=== PATIENT | female | born 1940 | race Caucasian/White ===

== ENCOUNTER 2017-05-29 09:25 | Emergency (ER) | payer MEDICARE ==
[2017-05-29] MEDS ORDERED: Sodium Chloride 0.9% 500 ML 500 ML IV ONE (09:58)
--- NOTE | 2017-05-29 10:00 | ERPHSYRPT ---
- History of Present Illness Time Seen by Provider: 05/29/17 09:59 Source: patient Exam Limitations: no limitations Patient Subjective Stated Complaint: pt states she has had the feeling of Urinary tract infections for the past few days. states she gets frequent urinary tract infections. today pt called [facility] because she felt as though she was going to have a syncopal episode. pt deniesa ny chest pain. Triage Nursing Assessment: pt pink, warm, dry. mouth dry. pt alert and oriented x3. Physician History: 76 y/o female brought in by ambulance for urinary retention since last night. Pt reports that she urinated last night but this morning was not able to void. Pt does say that she has been having dysuria for the past 2 days. Pt has a history of UTIs in the past. Pt also mentions that she felt as if she was going to pass out this morning feeling dizziness with nausea. Pt was seen at Dr Swift' s office yesterday and had a similar episode of dizziness. Pt denies any chest pain, abdominal pain, nausea, vomiting, fever or chills. Of note, patient was just started on steroids and cymbalta for the past week. Timing/Duration: today Activites at Onset: none Allergies/Adverse Reactions: No Known Drug Allergies Allergy (Verified 05/29/17 09:35) Home Medications: Dicyclomine HCl [Bentyl] 10 mg PO BID 01/26/13 [History] Calcium Carbonate [Caltrate 600] 600 mg PO DAILY 10/06/14 [History] Cholecalciferol (Vitamin D3) [Vitamin D3] 400 unit PO DAILY 05/06/16 [History] Cranberry 500 mg PO DAILY 05/06/16 [History] Ferrous Sulfate [Iron] 325 mg PO BID 05/06/16 [History] Gabapentin [Neurontin] 200 mg PO DAILY 05/06/16 [History] Golimumab [Simponi] 22.5 mg IV UD 05/06/16 [History] Levothyroxine Sodium [Synthroid] 150 mcg PO DAILY 05/06/16 [History] Rivaroxaban [Xarelto] 20 mg PO HS 05/06/16 [History] Amlodipine Besylate 5 mg PO DAILY 05/29/17 [History] Duloxetine HCl 30 mg [Cymbalta 30 MG Capsule] 30 mg PO DAILY 05/29/17 [ History] Gabapentin 300 mg PO HS 05/29/17 [History] Lisinopril 10 mg [Zestril 10 MG] 10 mg PO BID 05/29/17 [History] Metoprolol Succinate 100 mg [Toprol Xl 100 MG] 100 mg PO DAILY 05/29/17 [ History] Hx Tetanus, Diphtheria Vaccination/Date Given: Yes (unknown) Hx Influenza Vaccination/Date Given: Yes Hx Pneumococcal Vaccination/Date Given: No - Review of Systems Constitutional: No Fever, No Chills Eyes: No Symptoms Ears, Nose, & Throat: No Symptoms Respiratory: No Cough, No Dyspnea Cardiac: No Chest Pain, No Edema, No Syncope Abdominal/Gastrointestinal: No Abdominal Pain, No Nausea, No Vomiting, No Diarrhea Genitourinary Symptoms: Dysuria, Urinary Retention Musculoskeletal: No Back Pain, No Neck Pain Skin: No Rash Neurological: No Dizziness, No Focal Weakness, No Sensory Changes Psychological: No Symptoms Endocrine: No Symptoms All Other Systems: Reviewed and Negative - Past Medical History Pertinent Past Medical History: Yes Neurological History: No Pertinent History ENT History: Cataracts Cardiac History: Arrhythmia, Hypertension Respiratory History: No Pertinent History Endocrine Medical History: Hypothyroidism Musculoskeletal History: Fibromyalgia, Rheumatoid Arthritis GI Medical History: Diverticulosis, GERD, Other History: No Pertinent History Psycho-Social History: Anxiety Female Reproductive Disorders: No Pertinent History Other Medical History: UTI, A FIB, hiatal hernia, - Past Surgical History Past Surgical History: Yes Neuro Surgical History: No Pertinent History Cardiac: Pacemaker Respiratory: No Pertinent History Gastrointestinal: No Pertinent History Genitourinary: No Pertinent History Musculoskeletal: Other Female Surgical History: Tubal Ligation Other Surgical History: KNEE REPLACEMENT X 2,. RIGHT HIP. Cataract surgery - Social History Smoking Status: Never smoker Exposure to second hand smoke: No Alcohol Use: None Drug Use: none Patient Lives Alone: No Significant Family History: hypertension - Female History Hx Now: No - Nursing Vital Signs Nursing Vital Signs: Initial Vital Signs Temperature 98.0 F 05/29/17 09:26 Pulse Rate 82 05/29/17 09:26 Respiratory Rate 18 05/29/17 09:26 Blood Pressure 142/90 05/29/17 09:26 O2 Sat by Pulse Oximetry 96 05/29/17 09:26 Pain Scale Pain Intensity 0 - Physical Exam General Appearance: no apparent distress, alert Eye Exam: PERRL/EOMI, eyes nml inspection Ears, Nose, Throat Exam: normal ENT inspection, TMs normal, pharynx normal, moist mucous membranes Neck Exam: normal inspection, non-tender, supple, full range of motion Respiratory Exam: normal breath sounds, lungs clear, No respiratory distress Cardiovascular Exam: regular rate/rhythm, normal heart sounds, normal peripheral pulses Gastrointestinal/Abdomen Exam: soft, normal bowel sounds, No tenderness, No distention, No mass Back Exam: normal inspection, normal range of motion, No CVA tenderness, No vertebral tenderness Extremity Exam: normal inspection, normal range of motion, pelvis stable Neurologic Exam: alert, oriented x 3, cooperative, orthotist or prosthetist II-XII nml as tested, normal mood/affect, sensation nml, No motor deficits Skin Exam: normal color, warm, dry Lymphatic Exam: No adenopathy SpO2: 96 Oxygen Delivery: Room Air - Course Nursing assessment & vital signs reviewed: Yes EKG Interpreted by Me: Other (T wave inversions in V3, V4, V5 and V6 (new)) Ordered Tests: Active Orders 24 hr Category Date Time Status Catheter-[place] Yip STAT Care 05/29/17 09:56 Active EKG-ER Only STAT Care 05/29/17 09:59 Active CHEST 1 VIEW (PORTABLE) Stat Exams 05/29/17 10:40 Completed CBC W DIFF Stat Lab 05/29/17 09:45 Completed CMP Stat Lab 05/29/17 09:45 Completed CULTURE,URINE Stat Lab 05/29/17 09:45 Received TROPONIN Q3H Lab 05/29/17 09:45 Completed TROPONIN Q3H Lab 05/29/17 13:00 Ordered TROPONIN Q3H Lab 05/29/17 16:00 Ordered TROPONIN Q3H Lab 05/29/17 19:00 Ordered TROPONIN Q3H Lab 05/29/17 22:00 Ordered UA W/ MICROSCOPIC Stat Lab 05/29/17 09:45 Completed Medication Summary Generic Name Dose Route Start Last Admin Trade Name Freq PRN Reason Stop Dose Admin Sodium Chloride 1,000 mls @ 50 mls/hr 05/29/17 10:30 05/29/17 10:18 Sodium Chloride 0.9% 1000 Ml IV 06/28/17 10:29 50 mls/hr .Q20H TAHIR Administration Discontinued Medications Generic Name Dose Route Start Last Admin Trade Name Freq PRN Reason Stop Dose Admin Sodium Chloride 500 mls @ 500 mls/hr 05/29/17 09:58 05/29/17 10:18 Sodium Chloride 0.9% 500 Ml IV 05/29/17 10:57 Not Given .Q1H ONE Lab/Rad Data: Laboratory Result Diagrams 05/29/17 09:45 05/29/17 09:45 Laboratory Results 05/29/17 05/29/17 05/29/17 Range/Units 09:45 09:45 09:45 WBC (4.0-10.5) K/mm3 RBC (4.1-5.4) M/mm3 Hgb (12.0-16.0) gm/dl Hct (35-47) % MCV (78-100) fl MCH (26-32) pg MCHC (32-36) g/dl RDW (11.5-14.0) % Plt Count (150-450) K/mm3 MPV (6-9.5) fl Gran % (36.0-66.0) % Lymphocytes % (24.0-44.0) % Monocytes % (0.0-12.0) % Eosinophils % (0.00-5.0) % Basophils % (0.0-0.4) % Basophils # (0-0.4) Sodium 126 L (136-145) mEq/L Potassium 4.2 (3.5-5.1) mEq/L Chloride 92 L (98-107) mEq/L Carbon Dioxide 24.6 (21-32) mEq/L Anion Gap 13.7 (5-15) MEQ/L BUN 21 H (9-20) mg/dL Creatinine 1.15 (0.55-1.30) mg/dl Estimated GFR 49 ML/MIN Glucose 114 H (70-110) MG/DL Calcium 9.6 (8.5-10.1) mg/dL Total Bilirubin 1.60 H (0.2-1.0) mg/dL AST 25 (15-37) U/L ALT 32 (12-78) U/L Alkaline Phosphatase 115 (46-116) U/L Troponin I < 0.017 (0.000-0.056) ng/ml Serum Total Protein 8.0 (6.4-8.2) gm/dL Albumin 4.1 (3.4-5.0) g/dL Ur Collection Type CATH Urine Color ORANGE (YELLOW) Urine Appearance CLOUDY (CLEAR) Urine pH COLOR INTERFERENCE (5-6) Ur Specific [place] COLOR INTERFERENCE (1.005-1.025) Urine Protein COLOR INTERFERENCE (Negative) Urine Ketones COLOR INTERFERENCE (NEGATIVE) Urine Blood COLOR INTERFERENCE (0-5) Margarito/ul Urine Nitrite COLOR INTERFERENCE (NEGATIVE) Urine Bilirubin COLOR INTERFERENCE (NEGATIVE) Urine Urobilinogen COLOR INTERFERENCE (0-1) mg/dL Ur Leukocyte Esterase COLOR INTERFERENCE (NEGATIVE) Urine Microscopic WBC 25-50 (0-5) /HPF Ur Epithelial Cells FEW (FEW) /HPF Urine Bacteria FEW (NEGATIVE) /HPF Urine Glucose COLOR INTERFERENCE (NEGATIVE) mg/dL Specimen Received 05-29 1010 05/29/17 Range/Units 09:45 WBC 10.7 H (4.0-10.5) K/mm3 RBC 5.56 H (4.1-5.4) M/mm3 Hgb 16.8 H (12.0-16.0) gm/dl Hct 48.8 H (35-47) % MCV 87.8 (78-100) fl MCH 30.2 (26-32) pg MCHC 34.4 (32-36) g/dl RDW 12.3 (11.5-14.0) % Plt Count 219 (150-450) K/mm3 MPV 9.9 H (6-9.5) fl Gran % 70.5 H (36.0-66.0) % Lymphocytes % 19.4 L (24.0-44.0) % Monocytes % 9.7 (0.0-12.0) % Eosinophils % 0.3 (0.00-5.0) % Basophils % 0.1 (0.0-0.4) % Basophils # 0.01 (0-0.4) Sodium (136-145) mEq/L Potassium (3.5-5.1) mEq/L Chloride (98-107) mEq/L Carbon Dioxide (21-32) mEq/L Anion Gap (5-15) MEQ/L BUN (9-20) mg/dL Creatinine (0.55-1.30) mg/dl Estimated GFR ML/MIN Glucose (70-110) MG/DL Calcium (8.5-10.1) mg/dL Total Bilirubin (0.2-1.0) mg/dL AST (15-37) U/L ALT (12-78) U/L Alkaline Phosphatase (46-116) U/L Troponin I (0.000-0.056) ng/ml Serum Total Protein (6.4-8.2) gm/dL Albumin (3.4-5.0) g/dL Ur Collection Type Urine Color (YELLOW) Urine Appearance (CLEAR) Urine pH (5-6) Ur Specific [place] (1.005-1.025) Urine Protein (Negative) Urine Ketones (NEGATIVE) Urine Blood (0-5) Margarito/ul Urine Nitrite (NEGATIVE) Urine Bilirubin (NEGATIVE) Urine Urobilinogen (0-1) mg/dL Ur Leukocyte Esterase (NEGATIVE) Urine Microscopic WBC (0-5) /HPF Ur Epithelial Cells (FEW) /HPF Urine Bacteria (NEGATIVE) /HPF Urine Glucose (NEGATIVE) mg/dL Specimen Received - Progress Progress: improved Progress Note: 05/29/17 11:49 The EKG from today shows T wave inversions in leads V3-V6 which is a change from previous EKG in 2015. The troponin is negative. CXR is unremarkable. Pt also has a Na of 126. 05/29/17 12:02 Awaiting U/A. Pt has been accepted by hospitalist, Dr Jacobs at [place] - Departure Time of Disposition: 12:03 Departure Disposition: Transfer Clinical Impression: Acute electrocardiogram changes, Hyponatremia Condition: Stable Critical Care Time: Yes Critical Care Time(excluding separately billable procedures): 75-104 minutes Referrals: KURTIS THIBODEAUX MD [Primary Care Provider] -
[2017-05-29 10:08] LABS: BASOPHIL % 0.1 % (0.0-0.4); Eosinophil % 0.3 % (0.00-5.0); Granulocytes % 70.5 % (36.0-66.0); Lymphocytes % 19.4 % (24.0-44.0); Mean Cell Volume 87.8 fl (78-100); Mean Corpuscular Hemoglobin 30.2 pg (26-32); Mean Platelet Volume 9.9 fl (6-9.5); Monocytes % 9.7 % (0.0-12.0); Platelet Count 219 K/mm3 (150-450); Red Blood Count 5.56 M/mm3 (4.1-5.4); Red Cell Distribution Width 12.3 % (11.5-14.0); White Blood Count 10.7 K/mm3 (4.0-10.5)
[2017-05-29 10:11] LABS: Bilirubin COLOR INTERFERENCE (NEGATIVE); COMPLETE URINE MICROSCOPIC? YES; Collection Type CATH; Glucose COLOR INTERFERENCE mg/dL (NEGATIVE); Leukocyte Esterase COLOR INTERFERENCE (NEGATIVE)
[2017-05-29 10:12] LABS: Epithelial Cells FEW /HPF (FEW); WBC 25-50 /HPF (0-5)
[2017-05-29 10:14] LABS: Bacteria FEW /HPF (NEGATIVE)
[2017-05-29 10:15] LABS: ADD URINE CULTURE? YES (NO)
[2017-05-29] MEDS ORDERED: Sodium Chloride 0.9% 1000 ML 1,000 ML IV SCH (10:30)
[2017-05-29 10:42] LABS: ALBUMIN 4.1 g/dL (3.4-5.0); ANION GAP 13.7 MEQ/L (5-15); BILIRUBIN,TOTAL 1.6 mg/dL (0.2-1.0); Carbon Dioxide 24.6 mEq/L (21-32); Potassium 4.2 mEq/L (3.5-5.1)
--- NOTE | 2017-05-29 11:16 | XRAY ---
Indication: Chest pain. Comparison: December 19, 2014. Portable chest unchanged again demonstrating clear lungs without cardiomegaly. Stable left-sided pacemaker, focal eventration of the right hemidiaphragm, hiatal hernia, osteopenia, degenerative changes, and old right humeral head fracture. Impression: Stable nonacute chest with chronic features.
[2017-05-29 12:05] LABS: Blood COLOR INTERFERENCE Ery/ul (0-5)
[2017-05-29 12:39] VITALS: BP 154/74; PULSE 77; O2SAT 98
== END 2017-05-29 12:56 | disposition short-term general hospital (02) ==
LOC: ED 09:25
DX: R94.31 Abnormal electrocardiogram [ECG] [EKG] (principal); E87.1 Hypo-osmolality and hyponatremia; Z79.899 Other long term (current) drug therapy
CPT/HCPCS: 36000; 36415; 51702; 71010; 80053; 81000; 84484; 85025; 87077; 87086; 87186; 93005; 96360; 96361; 99285

== ENCOUNTER 2019-05-20 00:38 | Observation (INO) | payer MEDICARE ==
[2019-05-20] MEDS ORDERED: Zofran 4 MG/2 ML VIAL IV ONE (00:53)
[2019-05-20] MEDS ORDERED: Sodium Chloride 0.9% 1000 ML 1,000 ML IV STA ×2 (00:53→04:36)
--- NOTE | 2019-05-20 00:59 | ERPHSYRPT ---
- History of Present Illness Time Seen by Provider: 05/20/19 00:53 Historian: patient Exam Limitations: no limitations Physician History: Pt started c/o nausea, diarrhea last night, she had several episodes of watery stools, denies vomiting, bloody or black stools, no fever, chills, no urinary complaints, chest pain, SOB, or distress. She denies taking antibiotics recently. Timing/Duration: yesterday Activities at Onset: none Quality: other (denies) Pain Radiation: no radiation Severity of Pain-Max: none Severity of Pain-Current: none Modifying Factors: Improves With: nothing Associated Symptoms: diarrhea, nausea Previous symptoms: no prior history Allergies/Adverse Reactions: No Known Drug Allergies Allergy (Verified 05/29/17 09:35) Home Medications: Dicyclomine HCl [Bentyl] 10 mg PO BID 01/26/13 [History] Gabapentin [Neurontin] 200 mg PO DAILY 05/06/16 [History] Golimumab [Simponi] 22.5 mg IV UD 05/06/16 [History] Levothyroxine Sodium [Synthroid] 100 mcg PO DAILY 05/06/16 [History] Duloxetine HCl 30 mg [Cymbalta 30 MG Capsule] 20 mg PO DAILY 05/29/17 [ History] Gabapentin 300 mg PO HS 05/29/17 [History] Apixaban [Eliquis] 2.5 mg PO BID 05/20/19 [History] Carvedilol 25 mg PO BID 05/20/19 [History] Denosumab 60 mg [Prolia 60 mg Injection] 60 mg IM CLARIFY 05/20/19 [ History] Magnesium 400 mg PO DAILY 05/20/19 [History] Verapamil HCl [Verapamil ER Pm] 200 mg PO DAILY 05/20/19 [History] Hx Tetanus, Diphtheria Vaccination/Date Given: Yes (unknown) Hx Influenza Vaccination/Date Given: Yes Hx Pneumococcal Vaccination/Date Given: No - Review of Systems Constitutional: No Symptoms Ears, Nose, & Throat: No Symptoms Respiratory: No Symptoms Cardiac: No Symptoms Abdominal/Gastrointestinal: Nausea, Diarrhea, No Abdominal Pain Genitourinary Symptoms: No Symptoms Musculoskeletal: No Symptoms Skin: No Symptoms Neurological: No Symptoms All Other Systems: Reviewed and Negative - Past Medical History Pertinent Past Medical History: Yes Neurological History: No Pertinent History ENT History: Cataracts Cardiac History: Arrhythmia, Hypertension Respiratory History: No Pertinent History Endocrine Medical History: Hypothyroidism Musculoskeletal History: Fibromyalgia, Rheumatoid Arthritis GI Medical History: Diverticulosis, GERD, Other History: No Pertinent History Psycho-Social History: Anxiety Female Reproductive Disorders: No Pertinent History Other Medical History: UTI, A FIB, hiatal hernia, - Past Surgical History Past Surgical History: Yes Neuro Surgical History: No Pertinent History Cardiac: Pacemaker Respiratory: No Pertinent History Gastrointestinal: No Pertinent History Genitourinary: No Pertinent History Musculoskeletal: Other Female Surgical History: Tubal Ligation Other Surgical History: KNEE REPLACEMENT X 2,. RIGHT HIP. Cataract surgery - Social History Smoking Status: Never smoker Exposure to second hand smoke: No Alcohol Use: None Drug Use: none Patient Lives Alone: No Significant Family History: hypertension - Nursing Vital Signs Nursing Vital Signs: Initial Vital Signs Temperature 98.1 F 05/20/19 00:39 Pulse Rate 63 05/20/19 00:39 Respiratory Rate 20 05/20/19 00:39 Blood Pressure 90/55 05/20/19 00:39 O2 Sat by Pulse Oximetry 92 L 05/20/19 00:39 Pain Scale Pain Intensity 0 - Physical Exam General Appearance: no apparent distress Eye Exam: eyes nml inspection Ears, Nose, Throat Exam: pharynx normal, dry mucous membranes Neck Exam: normal inspection, non-tender, supple, No JVD, No lymphadenopathy Respiratory Exam: normal breath sounds, lungs clear, airway intact Cardiovascular Exam: regular rate/rhythm, normal heart sounds, normal peripheral pulses, No murmur, No edema Gastrointestinal/Abdomen Exam: soft, normal bowel sounds, No tenderness, No distention, No mass, No guarding, No ecchymosis, No rebound, No organomegaly Extremity Exam: normal inspection, No calf tenderness, No sara's sign, No pedal edema Neurologic Exam: alert, oriented x 3, cooperative, normal mood/affect Skin Exam: normal color, warm, dry, No rash, No petechiae, No cyanosis, No diaphoresis Lymphatic Exam: No adenopathy SpO2 Interpretation: borderline oxygenation SpO2: 92 O2 Delivery: Room Air - Course Nursing assessment & vital signs reviewed: Yes - CT Exams Abdomen/Pelvis CT Interpretation: Tele-radiologist Report, Other (Cholelithiasis, normal gallbladder wall, no pericholecystic fluid, no acute changes.) Ordered Tests: Active Orders 24 hr Category Date Time Status ABDOMEN AND PELVIS W/0 CONTRAS [CT] Stat Exams 05/20/19 02:45 Taken AMYLASE Stat Lab 05/20/19 01:10 Completed CBC W DIFF Stat Lab 05/20/19 01:10 Completed CMP Stat Lab 05/20/19 01:10 Completed CULTURE,URINE Stat Lab 05/20/19 03:11 Received LIPASE Stat Lab 05/20/19 01:10 Completed Lactic Acid Stat Lab 05/20/19 01:04 Completed Occult Blood, Other Screening Stat Lab 05/20/19 00:54 Completed UA W/RFX UR CULTURE Stat Lab 05/20/19 03:11 Completed Medication Summary Generic Name Dose Route Start Last Admin Trade Name Freq PRN Reason Stop Dose Admin Sodium Chloride 1,000 mls @ 999 mls/hr 05/20/19 04:36 05/20/19 04:38 Sodium Chloride 0.9% 1000 Ml IV 05/20/19 05:36 999 mls/hr .Q1H1M STA Administration Levofloxacin/Dextrose 750 mg in 150 mls @ 100 mls/hr 05/20/19 04:38 Levofloxacin 750mg/150ml D5w IV 05/20/19 06:07 STAT STA Discontinued Medications Generic Name Dose Route Start Last Admin Trade Name Freq PRN Reason Stop Dose Admin Sodium Chloride 1,000 mls @ 999 mls/hr 05/20/19 00:53 05/20/19 01:32 Sodium Chloride 0.9% 1000 Ml IV 05/20/19 01:53 999 mls/hr .Q1H1M STA Administration Sodium Chloride Confirm 05/20/19 01:29 Sodium Chloride 0.9% 1000 Ml Administered 05/20/19 01:30 Dose 1,000 mls @ ud .ROUTE .STK-MED ONE Sodium Chloride Confirm 05/20/19 04:36 Sodium Chloride 0.9% 1000 Ml Administered 05/20/19 04:37 Dose 1,000 mls @ ud .ROUTE .STK-MED ONE Ondansetron HCl 4 mg 05/20/19 00:53 05/20/19 01:32 Zofran 4 Mg/2 Ml Vial IV 05/20/19 00:54 4 mg STAT ONE Administration Ondansetron HCl Confirm 05/20/19 01:29 Zofran 4 Mg/2 Ml Vial Administered 05/20/19 01:30 Dose 4 mg .ROUTE .STK-MED ONE Lab/Rad Data: Laboratory Result Diagrams 05/20/19 01:10 05/20/19 01:10 Laboratory Results 05/20/19 05/20/19 05/20/19 Range/Units 03:11 01:10 01:10 WBC 9.6 (4.0-10.5) K/mm3 RBC 4.03 L (4.1-5.4) M/mm3 Hgb 11.9 L (12.0-16.0) gm/dl Hct 38.4 (35-47) % MCV 95.3 (78-100) fl MCH 29.5 (26-32) pg MCHC 31.0 L (32-36) g/dl RDW 13.2 (11.5-14.0) % Plt Count 172 (150-450) K/mm3 MPV 9.4 (6-9.5) fl Gran % 78.9 H (36.0-66.0) % Eos # (Auto) 0.03 (0-0.5) Absolute Lymphs (auto) 1.04 (1.0-4.6) Absolute Monos (auto) 0.96 (0.0-1.3) Lymphocytes % 10.8 L (24.0-44.0) % Monocytes % 10.0 (0.0-12.0) % Eosinophils % 0.3 (0.00-5.0) % Basophils % 0.0 (0.0-0.4) % Absolute Granulocytes 7.58 H (1.4-6.9) Basophils # 0 (0-0.4) Sodium 133 L (137-145) mmol/L Potassium 4.4 (3.5-5.1) mmol/L Chloride 101 (98-107) mmol/L Carbon Dioxide 21 L (22-30) mmol/L Anion Gap 14.8 (5-15) MEQ/L BUN 28 H (7-17) mg/dL Creatinine 1.30 H (0.52-1.04) mg/dL Estimated GFR 42.2 ML/MIN Glucose 115 H (74-106) mg/dL Lactic Acid (0.4-2.0) Calcium 8.9 (8.4-10.2) mg/dL Total Bilirubin 2.20 H (0.2-1.3) mg/dL AST 119 H (14-36) U/L ALT 48 H (0-35) U/L Alkaline Phosphatase 141 H (38-126) U/L Serum Total Protein 7.4 (6.3-8.2) g/dL Albumin 3.7 (3.5-5.0) g/dL Amylase 87 (30-110) U/L Lipase 140 (23-300) U/L Urine Color STACIE (YELLOW) Urine Appearance CLOUDY (CLEAR) Urine pH 5.0 (5-6) Ur Specific [place] 1.023 (1.005-1.025) Urine Protein 100 (Negative) Urine Ketones TRACE (NEGATIVE) Urine Blood NEGATIVE (0-5) Margarito/ul Urine Nitrite NEGATIVE (NEGATIVE) Urine Bilirubin MODERATE (NEGATIVE) Urine Urobilinogen 2 (0-1) mg/dL Ur Leukocyte Esterase MODERATE (NEGATIVE) Urine WBC (Auto) 51-100 (0-5) /HPF Urine RBC (Auto) 3-5 (0-2) /HPF U Hyaline Cast (Auto) 3-5 (0-2) /LPF U Epithel Cells (Auto) NONE (FEW) /HPF Urine Bacteria (Auto) RARE (NEGATIVE) /HPF Granular Casts (Auto) 10-25 (NEGATIVE) /LPF Urine Mucus (Auto) SLIGHT (NEGATIVE) /HPF Urine Culture Reflexed YES (NO) Urine Glucose NEGATIVE (NEGATIVE) mg/dL Stool Occult Blood (Negative) C. difficile Screen (NEGATIVE) C.difficile [id number] (NEGATIVE) 05/20/19 05/20/19 05/20/19 Range/Units 01:04 00:55 00:54 WBC (4.0-10.5) K/mm3 RBC (4.1-5.4) M/mm3 Hgb (12.0-16.0) gm/dl Hct (35-47) % MCV (78-100) fl MCH (26-32) pg MCHC (32-36) g/dl RDW (11.5-14.0) % Plt Count (150-450) K/mm3 MPV (6-9.5) fl Gran % (36.0-66.0) % Eos # (Auto) (0-0.5) Absolute Lymphs (auto) (1.0-4.6) Absolute Monos (auto) (0.0-1.3) Lymphocytes % (24.0-44.0) % Monocytes % (0.0-12.0) % Eosinophils % (0.00-5.0) % Basophils % (0.0-0.4) % Absolute Granulocytes (1.4-6.9) Basophils # (0-0.4) Sodium (137-145) mmol/L Potassium (3.5-5.1) mmol/L Chloride (98-107) mmol/L Carbon Dioxide (22-30) mmol/L Anion Gap (5-15) MEQ/L BUN (7-17) mg/dL Creatinine (0.52-1.04) mg/dL Estimated GFR ML/MIN Glucose (74-106) mg/dL Lactic Acid 1.2 (0.4-2.0) Calcium (8.4-10.2) mg/dL Total Bilirubin (0.2-1.3) mg/dL AST (14-36) U/L ALT (0-35) U/L Alkaline Phosphatase (38-126) U/L Serum Total Protein (6.3-8.2) g/dL Albumin (3.5-5.0) g/dL Amylase (30-110) U/L Lipase (23-300) U/L Urine Color (YELLOW) Urine Appearance (CLEAR) Urine pH (5-6) Ur Specific [place] (1.005-1.025) Urine Protein (Negative) Urine Ketones (NEGATIVE) Urine Blood (0-5) Margarito/ul Urine Nitrite (NEGATIVE) Urine Bilirubin (NEGATIVE) Urine Urobilinogen (0-1) mg/dL Ur Leukocyte Esterase (NEGATIVE) Urine WBC (Auto) (0-5) /HPF Urine RBC (Auto) (0-2) /HPF U Hyaline Cast (Auto) (0-2) /LPF U Epithel Cells (Auto) (FEW) /HPF Urine Bacteria (Auto) (NEGATIVE) /HPF Granular Casts (Auto) (NEGATIVE) /LPF Urine Mucus (Auto) (NEGATIVE) /HPF Urine Culture Reflexed (NO) Urine Glucose (NEGATIVE) mg/dL Stool Occult Blood POSITIVE A (Negative) C. difficile Screen NEGATIVE (NEGATIVE) C.difficile [id number] PRESUMPTIVE NEGATIVE (NEGATIVE) - Progress Progress: improved Progress Note: 05/20/19 04:48 Pt has been afebrile, denies pain, nausea resolved, started on IV saline bolus, and Levaquin, reviewed her labs and called Dr Gutiérrez, discussed our results and her current condition, she agreed to admit her for observation. Patient was informed and agreed. Discussed with Dr.: Other (Dr Gutiérrez) Will see patient in: hospital (observation) Counseled pt/family regarding: lab results, diagnosis, rad results - Departure Departure Disposition: Observation Clinical Impression: UTI (lower urinary tract infection), Dehydration Diarrhea Qualifiers: Diarrhea type: unspecified type Qualified Code(s): R19.7 - Diarrhea, unspecified Gastrointestinal bleeding Qualifiers: GI bleed type/associated pathology: unspecified gastrointestinal hemorrhage type Qualified Code(s): K92.2 - Gastrointestinal hemorrhage, unspecified Cholelithiasis Qualifiers: Cholelithiasis location: gallbladder Cholecystitis presence: without cholecystitis Biliary obstruction: without biliary obstruction Qualified Code(s) : K80.20 - Calculus of gallbladder without cholecystitis without obstruction Condition: Stable Critical Care Time: No Referrals: KURTIS THIBODEAUX MD [Primary Care Provider] -
[2019-05-20 01:18] LABS: Basophil (Absolute #) 0 (0-0.4); Eosinophil % 0.3 % (0.00-5.0); Eosinophil (Absolute #) 0.03 (0-0.5); Granulocyte Absolute (ANC) 7.58 (1.4-6.9); Granulocytes % 78.9 % (36.0-66.0); Hematocrit 38.4 % (35-47); Hemoglobin 11.9 gm/dl (12.0-16.0); Lymphocyte (Absolute #) 1.04 (1.0-4.6); Lymphocytes % 10.8 % (24.0-44.0); Mean Cell Volume 95.3 fl (78-100); Mean Corpuscular Hemoglobin 29.5 pg (26-32); Mean Platelet Volume 9.4 fl (6-9.5); Monocyte (Absolute #) 0.96 (0.0-1.3); Platelet Count 172 K/mm3 (150-450); Red Blood Count 4.03 M/mm3 (4.1-5.4); Red Cell Distribution Width 13.2 % (11.5-14.0); White Blood Count 9.6 K/mm3 (4.0-10.5)
[2019-05-20] MEDS ORDERED: Zofran 4 MG/2 ML VIAL ONE (01:29)
[2019-05-20] MEDS ORDERED: Sodium Chloride 0.9% 1000 ML 1,000 ML ONE ×2 (01:29→04:36)
[2019-05-20 01:35] LABS: ALBUMIN 3.7 g/dL (3.5-5.0); ANION GAP 14.8 MEQ/L (5-15); BILIRUBIN,TOTAL 2.2 mg/dL (0.2-1.3); Calcium 8.9 mg/dL (8.4-10.2); Creatinine 1 1.3 mg/dL (0.52-1.04); Potassium 4.4 mmol/L (3.5-5.1); Total Protein 7.4 g/dL (6.3-8.2)
[2019-05-20 03:32] LABS: Appearance CLOUDY (CLEAR); Bacteria RARE /HPF (NEGATIVE); Bilirubin MODERATE (NEGATIVE); Blood NEGATIVE Ery/ul (0-5); Glucose NEGATIVE (NEGATIVE); Ketones TRACE (NEGATIVE); Leukocyte Esterase MODERATE (NEGATIVE); Mucus SLIGHT /HPF (NEGATIVE); Nitrite NEGATIVE (NEGATIVE); Protein,Urine Dip 100 (Negative); Specific Gravity 1.023 (1.005-1.025); Urobilinogen 2 mg/dL (0-1); WBC 51-100 /HPF (0-5)
[2019-05-20 04:00] LABS: 027 TOX PROD PRESUMPTIVE NEGATIVE (NEGATIVE); TOXIGENIC C. DIFF ORG NEGATIVE (NEGATIVE)
[2019-05-20] MEDS ORDERED: LEVOFLOXACIN 750MG/150ML D5W 750 MG/150 ML BAG IV STA (04:38)
[2019-05-20] MEDS ORDERED: PROTONIX 40 MG IV IV ONE ×2 (04:47→04:52)
[2019-05-20] MEDS ORDERED: LEVOFLOXACIN 750MG/150ML D5W 750 MG/150 ML BAG IV ONE (04:52)
[2019-05-20] MEDS ORDERED: DUONEB 0.5-3 MG/3 ml Neb IH PRN (04:53)
[2019-05-20 05:46] LABS: Hematocrit 36.7 % (35-47); Hemoglobin 11.3 gm/dl (12.0-16.0)
[2019-05-20] MEDS: PROTONIX 40 MG IV IV SCH (06:55)
--- NOTE | 2019-05-20 09:19 | XRAY ---
Indication: Abdominal pain, nausea, and diarrhea. Multiple contiguous axial images obtained through the abdomen and pelvis without contrast as ordered. Comparison: None Lung bases demonstrates scattered fibrosis/scarring and right infrahilar/right lower lobe calcified granulomas. Heart is borderline enlarged. Large hiatal hernia with partial intrathoracic stomach. Images through the abdomen/pelvis slightly degraded by respiration artifact. Also right hip bipolar prosthesis produces beam artifact limiting these levels. Noncontrasted stomach appears nonobstructed. Small and large bowel loops are mildly fluid distended throughout with fluid leveling, ileus versus enterocolitis. Small bowel loop in the left midabdomen appears decompressed with adjacent distended small bowel loop up to 4 cm and asynchronous fluid leveling concerning for partial obstruction. No free fluid/air. There is a 2.6 cm dense gallstone. Incidental calcified splenic granulomas and hysterectomy. Remaining liver, pancreas, spleen, adrenal glands, kidneys, ureters, and bladder appear unremarkable for noncontrast exam. Moderate scattered vascular calcifications without AAA. Osseous structures intact demonstrate osteopenia and mild degenerative changes throughout the thoracolumbar spine. T7 segment demonstrates remote appearing anterior wedging deformity. Impression: 1. Respiration artifact and right hip prosthesis beam artifact. 2. Small bowel loop in the left mid abdomen appears abnormal as detailed concerning for partial obstruction. Remaining small and large bowel loops are fluid distended with fluid leveling, ileus versus enterocolitis. 3. Large hiatal hernia with partial intrathoracic stomach. 4. Dense gallstone. 5. 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 Comment: Preliminary interpretation was made by [facility] who does not bowel findings. Telephone report given to Dr. Jose in the ER at 0909 hrs on May 20, 2019. CT DI 23.68
--- NOTE | 2019-05-20 09:33 | PCM.HP ---
History of Present Illness - Chief Complaint Chief Complaint: UTI; Dehydration History of Present Illness: is a 78 year old female reports that she developed sudden onset of profuse watery diarrhea 2 night ago, she might have had some left lower quadrant pain initially but no severe pain. no fever, no chills, she denies any urinary symptoms. she has a known history of elevated liver functions that have been investigate by Dr Manpreet Swift her continuous improvement coordinator and Dr Gaines her cytogenetic technician, the patient reports it was believed to be medication related for the last 3-4 months. - Review of Systems Constitutional: No Symptoms Respiratory: No Cough, No Short Of Breath Cardiac: No Symptoms Abdominal/Gastrointestinal: Abdominal Pain, Diarrhea, No Nausea, No Vomiting, No Hematochezia, No Melena Musculoskeletal: Arthralgias (chronic from RA) Skin: No Rash Neurological: No Dizziness, No Focal Weakness, No Sensory Changes All Other Systems: Reviewed and Negative Medications & Allergies Home Medications: Home Medication List Dicyclomine HCl [Bentyl] 10 mg PO BID 01/26/13 [History Confirmed 05/20/19] Gabapentin [Neurontin] 200 mg PO DAILY 05/06/16 [History Confirmed 05/20/19] Golimumab [Simponi] 22.5 mg IV UD 05/06/16 [History Confirmed 05/20/19] Levothyroxine Sodium [Synthroid] 100 mcg PO DAILY 05/06/16 [History Confirmed ] Duloxetine HCl 30 mg [Cymbalta 30 MG Capsule] 20 mg PO DAILY 05/29/17 [ History Confirmed 05/20/19] Gabapentin 300 mg PO HS 05/29/17 [History Confirmed 05/20/19] Apixaban [Eliquis 2.5 mg Tablet] 2.5 mg PO BID 05/20/19 [History Confirmed ] Carvedilol 25 mg PO BID 05/20/19 [History Confirmed 05/20/19] Denosumab 60 mg [Prolia 60 mg Injection] 60 mg IM CLARIFY 05/20/19 [ History Confirmed 05/20/19] Magnesium 400 mg PO DAILY 05/20/19 [History Confirmed 05/20/19] Verapamil HCl [Verapamil ER Pm] 200 mg PO DAILY 05/20/19 [History Confirmed ] Allergies/Adverse Reactions: Allergies Allergy/AdvReac Type Severity Reaction Status Date / Time No Known Drug Allergies Allergy Verified 05/20/19 05:43 - Past Medical History Past Medical History: Yes Neurological History: No Pertinent History ENT History: Cataracts Cardiac History: Arrhythmia, Hypertension Respiratory History: No Pertinent History Endocrine Medical History: Hypothyroidism Musculoskelatal History: Fibromyalgia, Rheumatoid Arthritis GI Medical History: Diverticulosis, GERD, Other History: No Pertinent History Pyscho-Social History: Anxiety Reproductive Disorders: No Pertinent History Comment: UTI, A FIB, hiatal hernia, - Female History Are you now?: No - Past Surgical History Past Surgical History: Yes Neuro Surgical History: No Pertinent History Cardiac History: Pacemaker Respiratory Surgery: No Pertinent History GI Surgical History: No Pertinent History Genitourinary Surgical Hx: No Pertinent History Musculskeletal Surgical Hx: Other Female Surgical History: Tubal Ligation Other Surgical History: KNEE REPLACEMENT X 2,. RIGHT HIP. Cataract surgery - Social History Smoking Status: Never smoker Exposure to second hand smoke: No Alcohol: None Drug Use: none Significant Family History: hypertension - Physical Exam Vital Signs: Vital Signs - 24 hr Temp Pulse Resp BP Pulse Ox 05/20/19 05:50 98.1 F 63 19 94/51 94 L 05/20/19 04:53 92 L 05/20/19 04:50 61 18 98/57 94 L 05/20/19 04:18 60 18 91/54 92 L 05/20/19 02:19 61 19 88/49 95 05/20/19 01:29 64 18 91/47 95 05/20/19 00:39 98.1 F 63 20 90/55 92 L General Appearance: no apparent distress, obese Neurologic Exam: alert, oriented x 3, cooperative Respiratory Exam: normal breath sounds, lungs clear, No respiratory distress Cardiovascular Exam: regular rate/rhythm, normal heart sounds, normal peripheral pulses Gastrointestinal/Abdomen Exam: soft, tenderness (mild ruq and llq, pinpoint areas), No distention, No mass, No rebound Extremity Exam: normal inspection, normal range of motion, pelvis stable Skin Exam: normal color, warm, dry, No rash Results - Labs Lab/Micro Results: Lab Results-Last 24 Hours 05/20/19 05/20/19 05/20/19 Range/Units 00:54 00:55 01:04 WBC (4.0-10.5) K/mm3 RBC (4.1-5.4) M/mm3 Hgb (12.0-16.0) gm/dl Hct (35-47) % MCV (78-100) fl MCH (26-32) pg MCHC (32-36) g/dl RDW (11.5-14.0) % Plt Count (150-450) K/mm3 MPV (6-9.5) fl Gran % (36.0-66.0) % Eos # (Auto) (0-0.5) Absolute Lymphs (auto) (1.0-4.6) Absolute Monos (auto) (0.0-1.3) Lymphocytes % (24.0-44.0) % Monocytes % (0.0-12.0) % Eosinophils % (0.00-5.0) % Basophils % (0.0-0.4) % Absolute Granulocytes (1.4-6.9) Basophils # (0-0.4) Sodium (137-145) mmol/L Potassium (3.5-5.1) mmol/L Chloride (98-107) mmol/L Carbon Dioxide (22-30) mmol/L Anion Gap (5-15) MEQ/L BUN (7-17) mg/dL Creatinine (0.52-1.04) mg/dL Estimated GFR ML/MIN Glucose (74-106) mg/dL Lactic Acid 1.2 (0.4-2.0) Calcium (8.4-10.2) mg/dL Total Bilirubin (0.2-1.3) mg/dL AST (14-36) U/L ALT (0-35) U/L Alkaline Phosphatase (38-126) U/L Serum Total Protein (6.3-8.2) g/dL Albumin (3.5-5.0) g/dL Amylase (30-110) U/L Lipase (23-300) U/L Urine Color (YELLOW) Urine Appearance (CLEAR) Urine pH (5-6) Ur Specific [place] (1.005-1.025) Urine Protein (Negative) Urine Ketones (NEGATIVE) Urine Blood (0-5) Margarito/ul Urine Nitrite (NEGATIVE) Urine Bilirubin (NEGATIVE) Urine Urobilinogen (0-1) mg/dL Ur Leukocyte Esterase (NEGATIVE) Urine WBC (Auto) (0-5) /HPF Urine RBC (Auto) (0-2) /HPF U Hyaline Cast (Auto) (0-2) /LPF U Epithel Cells (Auto) (FEW) /HPF Urine Bacteria (Auto) (NEGATIVE) /HPF Granular Casts (Auto) (NEGATIVE) /LPF Urine Mucus (Auto) (NEGATIVE) /HPF Urine Culture Reflexed (NO) Urine Glucose (NEGATIVE) mg/dL Stool Occult Blood POSITIVE A (Negative) C. difficile Screen NEGATIVE (NEGATIVE) C.difficile 027-NAP1-B1 PRESUMPTIVE NEGATIVE (NEGATIVE) 05/20/19 05/20/19 05/20/19 Range/Units 01:10 01:10 03:11 WBC 9.6 (4.0-10.5) K/mm3 RBC 4.03 L (4.1-5.4) M/mm3 Hgb 11.9 L (12.0-16.0) gm/dl Hct 38.4 (35-47) % MCV 95.3 (78-100) fl MCH 29.5 (26-32) pg MCHC 31.0 L (32-36) g/dl RDW 13.2 (11.5-14.0) % Plt Count 172 (150-450) K/mm3 MPV 9.4 (6-9.5) fl Gran % 78.9 H (36.0-66.0) % Eos # (Auto) 0.03 (0-0.5) Absolute Lymphs (auto) 1.04 (1.0-4.6) Absolute Monos (auto) 0.96 (0.0-1.3) Lymphocytes % 10.8 L (24.0-44.0) % Monocytes % 10.0 (0.0-12.0) % Eosinophils % 0.3 (0.00-5.0) % Basophils % 0.0 (0.0-0.4) % Absolute Granulocytes 7.58 H (1.4-6.9) Basophils # 0 (0-0.4) Sodium 133 L (137-145) mmol/L Potassium 4.4 (3.5-5.1) mmol/L Chloride 101 (98-107) mmol/L Carbon Dioxide 21 L (22-30) mmol/L Anion Gap 14.8 (5-15) MEQ/L BUN 28 H (7-17) mg/dL Creatinine 1.30 H (0.52-1.04) mg/dL Estimated GFR 42.2 ML/MIN Glucose 115 H (74-106) mg/dL Lactic Acid (0.4-2.0) Calcium 8.9 (8.4-10.2) mg/dL Total Bilirubin 2.20 H (0.2-1.3) mg/dL AST 119 H (14-36) U/L ALT 48 H (0-35) U/L Alkaline Phosphatase 141 H (38-126) U/L Serum Total Protein 7.4 (6.3-8.2) g/dL Albumin 3.7 (3.5-5.0) g/dL Amylase 87 (30-110) U/L Lipase 140 (23-300) U/L Urine Color STACIE (YELLOW) Urine Appearance CLOUDY (CLEAR) Urine pH 5.0 (5-6) Ur Specific [place] 1.023 (1.005-1.025) Urine Protein 100 (Negative) Urine Ketones TRACE (NEGATIVE) Urine Blood NEGATIVE (0-5) Margarito/ul Urine Nitrite NEGATIVE (NEGATIVE) Urine Bilirubin MODERATE (NEGATIVE) Urine Urobilinogen 2 (0-1) mg/dL Ur Leukocyte Esterase MODERATE (NEGATIVE) Urine WBC (Auto) 51-100 (0-5) /HPF Urine RBC (Auto) 3-5 (0-2) /HPF U Hyaline Cast (Auto) 3-5 (0-2) /LPF U Epithel Cells (Auto) NONE (FEW) /HPF Urine Bacteria (Auto) RARE (NEGATIVE) /HPF Granular Casts (Auto) 10-25 (NEGATIVE) /LPF Urine Mucus (Auto) SLIGHT (NEGATIVE) /HPF Urine Culture Reflexed YES (NO) Urine Glucose NEGATIVE (NEGATIVE) mg/dL Stool Occult Blood (Negative) C. difficile Screen (NEGATIVE) C.difficile 027-NAP1-B1 (NEGATIVE) 05/20/19 Range/Units 05:12 WBC (4.0-10.5) K/mm3 RBC (4.1-5.4) M/mm3 Hgb 11.3 L (12.0-16.0) gm/dl Hct 36.7 (35-47) % MCV (78-100) fl MCH (26-32) pg MCHC (32-36) g/dl RDW (11.5-14.0) % Plt Count (150-450) K/mm3 MPV (6-9.5) fl Gran % (36.0-66.0) % Eos # (Auto) (0-0.5) Absolute Lymphs (auto) (1.0-4.6) Absolute Monos (auto) (0.0-1.3) Lymphocytes % (24.0-44.0) % Monocytes % (0.0-12.0) % Eosinophils % (0.00-5.0) % Basophils % (0.0-0.4) % Absolute Granulocytes (1.4-6.9) Basophils # (0-0.4) Sodium (137-145) mmol/L Potassium (3.5-5.1) mmol/L Chloride (98-107) mmol/L Carbon Dioxide (22-30) mmol/L Anion Gap (5-15) MEQ/L BUN (7-17) mg/dL Creatinine (0.52-1.04) mg/dL Estimated GFR ML/MIN Glucose (74-106) mg/dL Lactic Acid (0.4-2.0) Calcium (8.4-10.2) mg/dL Total Bilirubin (0.2-1.3) mg/dL AST (14-36) U/L ALT (0-35) U/L Alkaline Phosphatase (38-126) U/L Serum Total Protein (6.3-8.2) g/dL Albumin (3.5-5.0) g/dL Amylase (30-110) U/L Lipase (23-300) U/L Urine Color (YELLOW) Urine Appearance (CLEAR) Urine pH (5-6) Ur Specific [place] (1.005-1.025) Urine Protein (Negative) Urine Ketones (NEGATIVE) Urine Blood (0-5) Margarito/ul Urine Nitrite (NEGATIVE) Urine Bilirubin (NEGATIVE) Urine Urobilinogen (0-1) mg/dL Ur Leukocyte Esterase (NEGATIVE) Urine WBC (Auto) (0-5) /HPF Urine RBC (Auto) (0-2) /HPF U Hyaline Cast (Auto) (0-2) /LPF U Epithel Cells (Auto) (FEW) /HPF Urine Bacteria (Auto) (NEGATIVE) /HPF Granular Casts (Auto) (NEGATIVE) /LPF Urine Mucus (Auto) (NEGATIVE) /HPF Urine Culture Reflexed (NO) Urine Glucose (NEGATIVE) mg/dL Stool Occult Blood (Negative) C. difficile Screen (NEGATIVE) C.difficile 027-NAP1-B1 (NEGATIVE) - Radiology Impressions Radiology Exams & Impressions: Radiology Procedures Category Date Time Status ABDOMEN AND PELVIS W/0 CONTRAS [CT] Stat Exams 05/20/19 02:45 Taken Ultrasound Gallbladder [GALLBLADDER] [US] Routine Exams 05/20/19 10:00 Ordered Assessment/Plan (1) Cholelithiasis Current Visit: Yes Status: Acute Qualifiers: Cholelithiasis location: gallbladder Cholecystitis presence: without cholecystitis Biliary obstruction: without biliary obstruction Qualified Code(s): K80.20 - Calculus of gallbladder without cholecystitis without obstruction Assessment & Plan: gallbladder ultrasound pending, keep npo (2) Dehydration Current Visit: Yes Status: Acute Code(s): E86.0 - DEHYDRATION (3) Diarrhea Current Visit: Yes Status: Acute Qualifiers: Diarrhea type: unspecified type Qualified Code(s): R19.7 - Diarrhea, unspecified Assessment & Plan: stool gi pathogen panel ordered, currently on levaquin for uti, add flagyl due to possibility of cholangitis with elevated lft's Code(s): R19.7 - DIARRHEA, UNSPECIFIED (4) Elevated liver function tests Current Visit: Yes Status: Acute Assessment & Plan: sounds chronic on history, will request records from Dr Arnav Swift. check hepatitis profile with acute diarrheal illness, evaluate for choledocholithiasis with u/s Code(s): R94.5 - ABNORMAL RESULTS OF LIVER FUNCTION STUDIES (5) UTI (lower urinary tract infection) Current Visit: Yes Status: Acute Assessment & Plan: on levaquin, culture pending. Code(s): N39.0 - URINARY TRACT INFECTION, SITE NOT SPECIFIED
[2019-05-20] MEDS ORDERED: LEVOFLOXACIN 750MG/150ML D5W 750 MG/150 ML BAG IV SCH ×2 (10:00→22:00)
--- NOTE | 2019-05-20 10:40 | XRAY ---
Indication: Cholelithiasis on same-day CT abdomen/pelvis. Two-dimensional gallbladder sonogram performed. Comparison: None Sonogram tactically difficult due to patient body habitus. There is a 2.8 cm gallstone. No gallbladder wall thickening or pericholecystic fluid. Common bile duct measures 5.2 mm. No intrahepatic biliary distention. Remaining visualized portions of the liver and pancreas sonographically unremarkable. No ascites. Right kidney measures 9.3 cm in length without focal solid/cystic mass or hydronephrosis. Impression: Limited sonogram due to patient body habitus. Large cholelithiasis without cholecystitis or biliary distention.
[2019-05-20] MEDS ORDERED: MEDICATION INTERVENTION PO SCH ×2 (11:00)
[2019-05-20] MEDS: SYNTHROID 100 MCG PO SCH (11:13)
[2019-05-20] MEDS: Neurontin 100 MG PO SCH (11:13)
[2019-05-20] MEDS: COREG 12.5 MG PO SCH ×2 (11:13→21:58)
[2019-05-20] MEDS: Sodium Chloride 0.9% 1000 ML 1,000 ML IV SCH ×2 (11:14→21:58)
[2019-05-20] MEDS: FLAGYL 500 MG IVPB 500 MG/100 ML BAG IV SCH ×2 (11:14→17:45)
[2019-05-20 16:11] LABS: 027 TOX PROD PRESUMPTIVE NEGATIVE (NEGATIVE); TOXIGENIC C. DIFF ORG NEGATIVE (NEGATIVE)
[2019-05-20 16:25] LABS: ALBUMIN 3.4 g/dL (3.5-5.0); ANION GAP 13.8 MEQ/L (5-15); BILIRUBIN,TOTAL 1.9 mg/dL (0.2-1.3); Calcium 8.1 mg/dL (8.4-10.2); Creatinine 1 1.21 mg/dL (0.52-1.04)
[2019-05-20 16:30] LABS: Potassium 4.1 mmol/L (3.5-5.1)
[2019-05-20] MEDS: NEURONTIN 300 MG PO SCH (21:58)
[2019-05-20] MEDS ORDERED: NON-FORMULARY ITEM (Carvedilol [Carvedilol] 25 MG) PO SCH (22:00)
[2019-05-21] MEDS: FLAGYL 500 MG IVPB 500 MG/100 ML BAG IV SCH ×5 (00:55→23:26)
[2019-05-21 04:56] LABS: ALBUMIN 3.4 g/dL (3.5-5.0); BILIRUBIN,TOTAL 1.4 mg/dL (0.2-1.3); Basophil (Absolute #) 0 (0-0.4); Calcium 8.4 mg/dL (8.4-10.2); Creatinine 1 1.11 mg/dL (0.52-1.04); Eosinophil (Absolute #) 0.06 (0-0.5); Granulocyte Absolute (ANC) 3.88 (1.4-6.9); Granulocytes % 66.1 % (36.0-66.0); Hematocrit 36.9 % (35-47); Hemoglobin 11.3 gm/dl (12.0-16.0); Lymphocyte (Absolute #) 1.29 (1.0-4.6); Mean Cell Volume 96.9 fl (78-100); Mean Corpuscular Hgb Concent. 30.6 g/dl (32-36); Mean Platelet Volume 9.5 fl (6-9.5); Monocyte (Absolute #) 0.64 (0.0-1.3); Monocytes % 10.9 % (0.0-12.0); Platelet Count 145 K/mm3 (150-450); Potassium 3.9 mmol/L (3.5-5.1); Red Blood Count 3.81 M/mm3 (4.1-5.4); Red Cell Distribution Width 13.7 % (11.5-14.0); White Blood Count 5.9 K/mm3 (4.0-10.5)
[2019-05-21 05:00] LABS: Mean Corpuscular Hemoglobin 29.6 pg (26-32)
[2019-05-21 05:46] LABS: HEPATITIS A IGM Non Reactive (Non Reactive); HEPATITIS B VIRUS CORE TOT AB Non Reactive (Non Reactive); HEPATITIS C VIRUS ANTIBODY Non Reactive (Non Reactive); Hepatitis B Surface Ab.Quant. <3.50 mIU/mL (0.00-8.49); Hepatitis B Surface Antigen Non Reactive (Non Reactive)
[2019-05-21] MEDS: Sodium Chloride 0.9% 1000 ML 1,000 ML IV SCH ×3 (05:46→21:34)
--- NOTE | 2019-05-21 08:53 | PCM.NOTE ---
Date and Time: 05/21/1950 Subjective Assessment: patient is doing better, diarrhea has nearly resolved. she was seen by surgery who feels LFT's are not related to gallstone since there is a several month history involved with her RA treatment etc of elevation of LFT's. she has no pain today Objective Exam General Appearance: no apparent distress, obese Neurologic Exam: alert, oriented x 3 Respiratory Exam: normal breath sounds, lungs clear, No respiratory distress Cardiovascular Exam: regular rate/rhythm, normal heart sounds Gastrointestinal/Abdomen Exam: soft, normal bowel sounds, No tenderness, No distention, No mass, No guarding OBJECTIVE DATA Vital Signs: Vital Signs - 24 hr Temp Pulse Resp BP Pulse Ox 05/21/19 08:00 98.2 F 78 18 120/57 93 L 05/21/19 04:20 98.2 F 71 18 114/58 93 L 05/21/19 00:00 98.2 F 66 17 100/49 94 L 05/20/19 20:00 98.0 F 69 16 104/54 93 L 05/20/19 16:00 98.4 F 60 18 115/53 90 L 05/20/19 13:20 100/52 05/20/19 11:53 98.2 F 65 18 86/50 90 L Pain Assessment - Last Documented Pain Intensity 3 Pain Scale Used 0-10 Pain Scale Intake and Output: Intake & Output 05/18/19 05/19/19 05/20/19 05/21/19 11:59 11:59 11:59 11:59 Intake Total 3504 Balance 3504 Weight 106.5 kg Lab Results: Lab Results-Last 24 Hours 05/20/19 05/20/19 05/20/19 Range/Units 09:50 14:10 15:53 WBC (4.0-10.5) K/mm3 RBC (4.1-5.4) M/mm3 Hgb (12.0-16.0) gm/dl Hct (35-47) % MCV (78-100) fl MCH (26-32) pg MCHC (32-36) g/dl RDW (11.5-14.0) % Plt Count (150-450) K/mm3 MPV (6-9.5) fl Gran % (36.0-66.0) % Eos # (Auto) (0-0.5) Absolute Lymphs (auto) (1.0-4.6) Absolute Monos (auto) (0.0-1.3) Lymphocytes % (24.0-44.0) % Monocytes % (0.0-12.0) % Eosinophils % (0.00-5.0) % Basophils % (0.0-0.4) % Absolute Granulocytes (1.4-6.9) Basophils # (0-0.4) Sodium (137-145) mmol/L Potassium (3.5-5.1) mmol/L Chloride (98-107) mmol/L Carbon Dioxide (22-30) mmol/L Anion Gap (5-15) MEQ/L BUN (7-17) mg/dL Creatinine (0.52-1.04) mg/dL Estimated GFR ML/MIN Glucose (74-106) mg/dL Lactic Acid (0.4-2.0) Calcium (8.4-10.2) mg/dL Total Bilirubin (0.2-1.3) mg/dL Direct Bilirubin 0.7 H (0.0-0.4) mg/dL AST (14-36) U/L ALT (0-35) U/L Alkaline Phosphatase (38-126) U/L Serum Total Protein (6.3-8.2) g/dL Albumin (3.5-5.0) g/dL C. difficile Screen NEGATIVE (NEGATIVE) C.difficile 027-NAP1-B1 PRESUMPTIVE NEGATIVE (NEGATIVE) Hepatitis A IgM Ab Non Reactive (Non Reactive) Hep Bs Antigen Non Reactive (Non Reactive) Hep Bs Antibody, Quant <3.50 (0.00-8.49) mIU/mL Hep B Core Total Ab Non Reactive (Non Reactive) Hepatitis C Antibody Non Reactive (Non Reactive) 05/20/19 05/21/19 05/21/19 Range/Units 16:07 04:41 04:43 WBC 5.9 (4.0-10.5) K/mm3 RBC 3.81 L (4.1-5.4) M/mm3 Hgb 11.3 L (12.0-16.0) gm/dl Hct 36.9 (35-47) % MCV 96.9 (78-100) fl MCH 29.6 (26-32) pg MCHC 30.6 L (32-36) g/dl RDW 13.7 (11.5-14.0) % Plt Count 145 L (150-450) K/mm3 MPV 9.5 (6-9.5) fl Gran % 66.1 H (36.0-66.0) % Eos # (Auto) 0.06 (0-0.5) Absolute Lymphs (auto) 1.29 (1.0-4.6) Absolute Monos (auto) 0.64 (0.0-1.3) Lymphocytes % 22.0 L (24.0-44.0) % Monocytes % 10.9 (0.0-12.0) % Eosinophils % 1.0 (0.00-5.0) % Basophils % 0.0 (0.0-0.4) % Absolute Granulocytes 3.88 (1.4-6.9) Basophils # 0 (0-0.4) Sodium 135 L (137-145) mmol/L Potassium 4.1 (3.5-5.1) mmol/L Chloride 105 (98-107) mmol/L Carbon Dioxide 21 L (22-30) mmol/L Anion Gap 13.8 (5-15) MEQ/L BUN 29 H (7-17) mg/dL Creatinine 1.21 H (0.52-1.04) mg/dL Estimated GFR 45.9 ML/MIN Glucose 83 (74-106) mg/dL Lactic Acid 0.8 (0.4-2.0) Calcium 8.1 L (8.4-10.2) mg/dL Total Bilirubin 1.90 H (0.2-1.3) mg/dL Direct Bilirubin (0.0-0.4) mg/dL AST 101 H (14-36) U/L ALT 57 H (0-35) U/L Alkaline Phosphatase 127 H (38-126) U/L Serum Total Protein 7.0 (6.3-8.2) g/dL Albumin 3.4 L (3.5-5.0) g/dL C. difficile Screen (NEGATIVE) C.difficile 027-NAP1-B1 (NEGATIVE) Hepatitis A IgM Ab (Non Reactive) Hep Bs Antigen (Non Reactive) Hep Bs Antibody, Quant (0.00-8.49) mIU/mL Hep B Core Total Ab (Non Reactive) Hepatitis C Antibody (Non Reactive) 05/21/19 Range/Units 04:43 WBC (4.0-10.5) K/mm3 RBC (4.1-5.4) M/mm3 Hgb (12.0-16.0) gm/dl Hct (35-47) % MCV (78-100) fl MCH (26-32) pg MCHC (32-36) g/dl RDW (11.5-14.0) % Plt Count (150-450) K/mm3 MPV (6-9.5) fl Gran % (36.0-66.0) % Eos # (Auto) (0-0.5) Absolute Lymphs (auto) (1.0-4.6) Absolute Monos (auto) (0.0-1.3) Lymphocytes % (24.0-44.0) % Monocytes % (0.0-12.0) % Eosinophils % (0.00-5.0) % Basophils % (0.0-0.4) % Absolute Granulocytes (1.4-6.9) Basophils # (0-0.4) Sodium 136 L (137-145) mmol/L Potassium 3.9 (3.5-5.1) mmol/L Chloride 109 H (98-107) mmol/L Carbon Dioxide 18 L (22-30) mmol/L Anion Gap 13.0 (5-15) MEQ/L BUN 23 H (7-17) mg/dL Creatinine 1.11 H (0.52-1.04) mg/dL Estimated GFR 50.7 ML/MIN Glucose 76 (74-106) mg/dL Lactic Acid (0.4-2.0) Calcium 8.4 (8.4-10.2) mg/dL Total Bilirubin 1.40 H (0.2-1.3) mg/dL Direct Bilirubin (0.0-0.4) mg/dL AST 83 H (14-36) U/L ALT 53 H (0-35) U/L Alkaline Phosphatase 147 H (38-126) U/L Serum Total Protein 7.0 (6.3-8.2) g/dL Albumin 3.4 L (3.5-5.0) g/dL C. difficile Screen (NEGATIVE) C.difficile 027-NAP1-B1 (NEGATIVE) Hepatitis A IgM Ab (Non Reactive) Hep Bs Antigen (Non Reactive) Hep Bs Antibody, Quant (0.00-8.49) mIU/mL Hep B Core Total Ab (Non Reactive) Hepatitis C Antibody (Non Reactive) Radiology Exams: Radiology Procedures Category Date Time Status ABDOMEN AND PELVIS W/0 CONTRAS [CT] Stat Exams 05/20/19 02:45 Completed Ultrasound Gallbladder [GALLBLADDER] [US] Routine Exams 05/20/19 10:00 Completed Assessment/Plan (1) Cholelithiasis Current Visit: Yes Status: Acute Qualifiers: Cholelithiasis location: gallbladder Cholecystitis presence: without cholecystitis Biliary obstruction: without biliary obstruction Qualified Code(s): K80.20 - Calculus of gallbladder without cholecystitis without obstruction (2) Dehydration Current Visit: Yes Status: Acute Code(s): E86.0 - DEHYDRATION (3) Diarrhea Current Visit: Yes Status: Acute Qualifiers: Diarrhea type: unspecified type Qualified Code(s): R19.7 - Diarrhea, unspecified Assessment & Plan: advance diet today, if able to take normal po can discharge to see cardiology for clearance and have cholecystectomy as an outpatient. Code(s): R19.7 - DIARRHEA, UNSPECIFIED (4) Elevated liver function tests Current Visit: Yes Status: Acute Assessment & Plan: improving. Code(s): R94.5 - ABNORMAL RESULTS OF LIVER FUNCTION STUDIES (5) UTI (lower urinary tract infection) Current Visit: Yes Status: Acute Assessment & Plan: on levaquin, urine culture pending. Code(s): N39.0 - URINARY TRACT INFECTION, SITE NOT SPECIFIED
[2019-05-21] MEDS: COREG 12.5 MG PO SCH ×2 (09:13→21:35)
[2019-05-21] MEDS: Neurontin 100 MG PO SCH (09:13)
[2019-05-21] MEDS: SYNTHROID 100 MCG PO SCH (09:13)
[2019-05-21] MEDS: PROTONIX 40 MG IV IV SCH (09:14)
[2019-05-21] MEDS ORDERED: LEVOTHYROXINE SODIUM 100 MCG PO SCH (10:00)
[2019-05-21] MEDS ORDERED: VERAPAMIL HCL 200 MG PO SCH (10:00)
[2019-05-21] MEDS ORDERED: Cymbalta 30 MG Capsule PO SCH (10:00)
--- NOTE | 2019-05-21 12:46 | CONS ---
CONSULT DATE: 05/20/2019 The patient is seen on Dr. Cooper's call day. HISTORY: The patient is a 78 year-old female who had some watery diarrhea a few nights ago and had several episodes yesterday but denied any significant pain, denied any vomiting. She said she had elevated liver function tests in the past followed by Dr. Cameron Swift her awning hanger. Dr. Gaines is her inventory manager. The patient denied any significant pain. She denies any nausea or vomiting. PAST MEDICAL HISTORY: Heart disease. Pacemaker in the past. Fibromyalgia. Rheumatoid arthritis. Hypothyroidism. Diverticular disease. Reflux in the past. Otherwise she has history of some atrial fibrillation in the past, hypertension and cataracts in the past. PAST SURGICAL HISTORY: She had tubal in the past. Cataract surgery. Knee replacement. Right hip surgery in the past. MEDICATIONS: Bentyl, Neurontin, Simponi, Synthroid, Cymbalta, gabapentin, Eliquis, carvedilol, Prolia, magnesium, Verapamil. She told me that she was not on blood thinner but she has been on Eliquis recently. ALLERGIES: NKDA. FAMILY HISTORY: Hypertension. SOCIAL HISTORY: No smoking or alcohol abuse. REVIEW OF SYSTEMS: Fourteen systems reviewed. Again, she denies any significant pain. She denies any vomiting. She feels her loose stools have improved since she has been here. No chest pain or palpitations. LAB DATA AND TESTS: White count 9.6, hemoglobin 11.9, PLT 172,000. Liver function test was elevated originally. Bilirubin was 2.2 and now 1.9. Direct component 0.7. SGOT 119, SGPT 48, alkaline phosphatase 141. She had a scan with large gallstones, cholecystitis. She had a large hiatal hernia with partial intrathoracic stomach. She had cholelithiasis. Small bowel loop in the mid abdomen with some extra fluid in it, otherwise she had fluid leveling throughout large and small bowel loops. Given her diarrhea episodes question ileus versus enterocolitis. Clinically, it is not behaving like an obstruction. She is feeling better. She does not have any significant pain. Partial obstruction could be in the differential given her diarrhea episodes and fluid throughout the large and small bowel, this is more of gastroenteritis or enterocolitis-type picture versus ileus. She does have large gallstones. She is not having any significant pain over the area and no acute cholecystitis at this point. I do feel she will eventually benefit from cholecystectomy but given some bradycardia and pacemaker, that needs to be interrogated to see if it is functioning well. She needs cardiac clearance if she is not needing emergent surgery. PHYSICAL EXAMINATION: GENERAL: No acute distress. HEENT: Sclera nonicteric. NECK: No JVD. CHEST: Equal excursion, nonlabored breathing. CVS: Regular rate and rhythm. ABDOMEN: Soft, obese. No peritoneal signs. No significant tenderness currently. EXTREMITIES: No edema. No cyanosis. NEURO: Alert, moving extremities grossly symmetrically. IMPRESSION: Some diarrhea episodes improved here and some colitis. She is nontoxic. She has a dense gallstone. Again, I feel she would benefit from cardiac clearance as this is not emergent surgery, interrogating the pacemaker as well as given her elevated liver function test there may be some kind of rheumatoid arthritis medication or other etiology. I feel she would benefit from opinion from the GI doctor to see what they thought, make sure they did not mention ERCP evaluation before considering cholecystectomy. Otherwise continue medical management at this point. There is remote possibility she could have some partial obstruction but again clinically she does not seem to be obstructed at this point. There seems to be more gastroenteritis versus enterocolitis, some loose stool from the gallbladder issues. Continue medical management at this point. Outpatient cardiac/GI clearance. Eventual cholecystectomy.
[2019-05-21] MEDS ORDERED: ISOPTIN SR 180MG PO SCH (18:00)
[2019-05-21] MEDS: NEURONTIN 300 MG PO SCH (21:35)
[2019-05-21] MEDS ORDERED: LEVOFLOXACIN 750MG/150ML D5W 750 MG/150 ML BAG IV SCH (22:00)
[2019-05-22 04:45] LABS: BASOPHIL % 0.2 % (0.0-0.4); Basophil (Absolute #) 0.01 (0-0.4); Eosinophil % 2.3 % (0.00-5.0); Eosinophil (Absolute #) 0.13 (0-0.5); Granulocyte Absolute (ANC) 3.49 (1.4-6.9); Granulocytes % 62.7 % (36.0-66.0); Hematocrit 35.3 % (35-47); Hemoglobin 10.8 gm/dl (12.0-16.0); Lymphocyte (Absolute #) 1.35 (1.0-4.6); Lymphocytes % 24.2 % (24.0-44.0); Mean Cell Volume 96.7 fl (78-100); Mean Corpuscular Hgb Concent. 30.6 g/dl (32-36); Mean Platelet Volume 9.2 fl (6-9.5); Monocyte (Absolute #) 0.59 (0.0-1.3); Monocytes % 10.6 % (0.0-12.0); Platelet Count 131 K/mm3 (150-450); Red Blood Count 3.65 M/mm3 (4.1-5.4); Red Cell Distribution Width 13.7 % (11.5-14.0); White Blood Count 5.6 K/mm3 (4.0-10.5)
[2019-05-22 04:54] LABS: Mean Corpuscular Hemoglobin 29.5 pg (26-32)
[2019-05-22 05:01] LABS: ALBUMIN 2.9 g/dL (3.5-5.0); ALKALINE PHOSPHATASE 139 U/L (38-126); ANION GAP 12.1 MEQ/L (5-15); BLOOD UREA NITROGEN 15 mg/dL (7-17); CHLORIDE 110 mmol/L (98-107); Calcium 8.2 mg/dL (8.4-10.2); Carbon Dioxide 18 mmol/L (22-30); Creatinine 1 0.82 mg/dL (0.52-1.04); Glucose 95 mg/dL (74-106); Potassium 3.7 mmol/L (3.5-5.1); SGOT/AST 61 U/L (14-36); SGPT/ALT 39 U/L (0-35); SODIUM 137 mmol/L (137-145); Total Protein 6.3 g/dL (6.3-8.2)
[2019-05-22] MEDS: FLAGYL 500 MG IVPB 500 MG/100 ML BAG IV SCH ×2 (06:22→12:33)
--- NOTE | 2019-05-22 08:49 | PCM.DS ---
Discharge Summary Date of Admission: 05/20/19 05:21 Admitting Physician: KURTIS THIBODEAUX Consults: Consults on Case 05/20/19 14:10 Consult Surgery ROUTINE Primary Care Provider: KURTIS THIBODEAUX Allergies Allergies No Known Drug Allergies Allergy (Verified 05/20/19 05:43) Hospital Summary - Hospital Course Hospital Course: patient admitted with diarrhea and dehydration, found to have a large gallstone but no pain. had elevation of LFT's but this is a chronic known finding. she has been hydrated, diarrhea has resolved, on levaquin for UTI and sensitive based on culture. advised to have outpatient cardiology clearance by surgery prior to surgery. - Vitals & Intake/Output Vital Signs: Vital Signs Temperature 98.8 F 05/22/19 07:30 Pulse Rate 59 L 05/22/19 07:30 Respiratory Rate 18 05/22/19 07:30 Blood Pressure 137/67 05/22/19 07:30 O2 Sat by Pulse Oximetry 95 05/22/19 07:30 Intake & Output: Intake & Output 05/19/19 05/20/19 05/21/19 05/22/19 11:59 11:59 11:59 11:59 Intake Total 3504 4461 Balance 3504 4461 Weight 106.5 kg - Lab Result Diagrams: 05/22/19 04:44 05/22/19 04:44 Lab Results-Last 24 Hrs: Lab Results-Last 24 Hours 05/22/19 05/22/19 Range/Units 04:44 04:44 WBC 5.6 (4.0-10.5) K/mm3 RBC 3.65 L (4.1-5.4) M/mm3 Hgb 10.8 L (12.0-16.0) gm/dl Hct 35.3 (35-47) % MCV 96.7 (78-100) fl MCH 29.5 (26-32) pg MCHC 30.6 L (32-36) g/dl RDW 13.7 (11.5-14.0) % Plt Count 131 L (150-450) K/mm3 MPV 9.2 (6-9.5) fl Gran % 62.7 (36.0-66.0) % Eos # (Auto) 0.13 (0-0.5) Absolute Lymphs (auto) 1.35 (1.0-4.6) Absolute Monos (auto) 0.59 (0.0-1.3) Lymphocytes % 24.2 (24.0-44.0) % Monocytes % 10.6 (0.0-12.0) % Eosinophils % 2.3 (0.00-5.0) % Basophils % 0.2 (0.0-0.4) % Absolute Granulocytes 3.49 (1.4-6.9) Basophils # 0.01 (0-0.4) Sodium 137 (137-145) mmol/L Potassium 3.7 (3.5-5.1) mmol/L Chloride 110 H (98-107) mmol/L Carbon Dioxide 18 L (22-30) mmol/L Anion Gap 12.1 (5-15) MEQ/L BUN 15 (7-17) mg/dL Creatinine 0.82 (0.52-1.04) mg/dL Estimated GFR > 60.0 ML/MIN Glucose 95 (74-106) mg/dL Calcium 8.2 L (8.4-10.2) mg/dL Total Bilirubin 0.80 (0.2-1.3) mg/dL AST 61 H (14-36) U/L ALT 39 H (0-35) U/L Alkaline Phosphatase 139 H (38-126) U/L Serum Total Protein 6.3 (6.3-8.2) g/dL Albumin 2.9 L (3.5-5.0) g/dL Micro Results-Entire Visit: Microbiology 05/20/19 03:11 Urine Culture - Final Catherized Proteus Mirabilis 05/20/19 05:11 Blood Culture - Preliminary Blood NO GROWTH TO DATE 05/20/19 05:11 Blood Culture - Preliminary Blood NO GROWTH TO DATE - Radiology Exams Ordered Rad Exams-Entire Visit: Radiology Procedures Category Date Time Status Ultrasound Gallbladder [GALLBLADDER] [US] Routine Exams 05/20/19 10:00 Completed - Procedures and Test Procedures and Tests throughout Hospitalization: Therapy Orders & Screens 05/20/19 17:16 EKG ONCE Comment: Diagnosis: UTI; Dehydration Discharge Exam General Appearance: no apparent distress, obese Neurologic Exam: alert, oriented x 3 Respiratory Exam: normal breath sounds, lungs clear, No respiratory distress Cardiovascular Exam: regular rate/rhythm, normal heart sounds Gastrointestinal/Abdomen Exam: soft, normal bowel sounds, No tenderness, No distention, No mass, No guarding Extremity Exam: normal inspection, normal range of motion Skin Exam: normal color, warm, dry Final Diagnosis/Problem List - Final Discharge Diagnosis/Problem (1) Cholelithiasis Current Visit: Yes Status: Acute Assessment & Plan: will see Dr Mchugh as outpatient (2) Dehydration Current Visit: Yes Status: Acute Code(s): E86.0 - DEHYDRATION (3) Diarrhea Current Visit: Yes Status: Acute Assessment & Plan: resolved Code(s): R19.7 - DIARRHEA, UNSPECIFIED (4) Elevated liver function tests Current Visit: Yes Status: Acute Code(s): R94.5 - ABNORMAL RESULTS OF LIVER FUNCTION STUDIES (5) UTI (lower urinary tract infection) Current Visit: Yes Status: Acute Code(s): N39.0 - URINARY TRACT INFECTION, SITE NOT SPECIFIED - Discharge Disposition: Home, Self-Care Condition: Stable Prescriptions: New Levofloxacin [Levaquin] 250 mg PO DAILY #5 tablet Continue Dicyclomine HCl [Bentyl] 10 mg PO BID Golimumab [Simponi] 22.5 mg IV UD Levothyroxine Sodium [Synthroid] 100 mcg PO DAILY Gabapentin [Neurontin] 200 mg PO DAILY Gabapentin 300 mg PO HS Duloxetine HCl 30 mg [Cymbalta 30 MG Capsule] 20 mg PO DAILY Verapamil HCl [Verapamil ER Pm] 200 mg PO DAILY Magnesium 400 mg PO DAILY Denosumab 60 mg [Prolia 60 mg Injection] 60 mg IM CLARIFY Carvedilol 25 mg PO BID Apixaban [Eliquis 2.5 mg Tablet] 2.5 mg PO BID Follow up with: ALYSSA SWIFT [CONSULTING PHYSICIAN] - 1 Week KURTIS THIBODEAUX MD [Primary Care Provider] - 1 Week ESTRELLA MCHUGH [COURTESY STAFF] - Call for Appointment (needs to see Dr Mchugh after pacemaker check and cardiac clearance from Dr Swift)
[2019-05-22] MEDS: COREG 12.5 MG PO SCH (09:18)
[2019-05-22] MEDS: Neurontin 100 MG PO SCH (09:18)
[2019-05-22] MEDS: SYNTHROID 100 MCG PO SCH (09:18)
[2019-05-22] MEDS: PROTONIX 40 MG IV IV SCH (12:33)
[2019-05-22 13:33] VITALS: BP 132/64; PULSE 82; O2SAT 96
== END 2019-05-22 14:05 | disposition home or self-care (01) ==
LOC: ED 00:38 → MED SURG 05:21
PROVIDERS: ADMIT Family Medicine; ATTEND Family Medicine
DX: K80.20 Calculus of gallbladder without cholecystitis without obstruction (principal); R19.7 Diarrhea, unspecified; E86.0 Dehydration; N39.0 Urinary tract infection, site not specified; R94.5 Abnormal results of liver function studies; Z79.899 Other long term (current) drug therapy; M06.9 Rheumatoid arthritis, unspecified; I48.91 Unspecified atrial fibrillation; Z79.01 Long term (current) use of anticoagulants
CPT/HCPCS: 36415; 74176; 76705; 80053; 80074; 81001; 82150; 82248; 82272; 83605; 83690; 85014; 85018; 85025; 87040; 87077; 87086; 87186; 87493; 93005; 93268; 96360; 96361; 96365; 96374; 96375; 99285; G0378; J1956; J2405; A9270-GY

== ENCOUNTER 2019-07-17 14:34 | Observation (INO) | payer MEDICARE ==
--- NOTE | 2019-07-17 15:12 | ERPHSYRPT ---
- History of Present Illness Time Seen by Provider: 07/17/19 14:45 Source: patient, family Exam Limitations: no limitations Patient Subjective Stated Complaint: states for approx two weeks has felt weak and has been falling at home. saw heart doc yesterday and he changed some of her meds. fell today while walking with her walker. states she felt dizzy. Triage Nursing Assessment: to room per ems cot. skin w/d, color normal, resp easy. denies any c/o pain, just states "I am tired". Physician History: 79 y/o white female presents with weakness for 2 weeks. pt has noticed dizziness and falls last 3 days. fell once daily for 3 days. pt denies any injury. pt states she was evaluated by technical business systems analyst kevin eastman yesterday. there were adjustments made in her medications. pt denies cp, soa and abd pain. denies head injury and denies headache. Timing/Duration: week(s) (2) Severity: mild Associated Symptoms: weakness Allergies/Adverse Reactions: No Known Drug Allergies Allergy (Verified 07/17/19 14:51) Home Medications: Dicyclomine HCl [Bentyl] 10 mg PO BID 01/26/13 [History] Gabapentin [Neurontin] 200 mg PO DAILY 05/06/16 [History] Golimumab [Simponi] 22.5 mg IV UD 05/06/16 [History] Levothyroxine Sodium [Synthroid] 100 mcg PO DAILY 05/06/16 [History] Duloxetine HCl 30 mg [Cymbalta 30 MG Capsule] 20 mg PO DAILY 05/29/17 [ History] Gabapentin 300 mg PO HS 05/29/17 [History] Apixaban [Eliquis 2.5 mg Tablet] 2.5 mg PO BID 05/20/19 [History] Carvedilol 25 mg PO BID 05/20/19 [History] Denosumab 60 mg [Prolia 60 mg Injection] 60 mg IM CLARIFY 05/20/19 [ History] Magnesium 400 mg PO DAILY 05/20/19 [History] Verapamil HCl [Verapamil ER Pm] 200 mg PO DAILY 05/20/19 [History] Hx Tetanus, Diphtheria Vaccination/Date Given: No Hx Influenza Vaccination/Date Given: No Hx Pneumococcal Vaccination/Date Given: Yes - Review of Systems Constitutional: Weakness Eyes: No Symptoms Ears, Nose, & Throat: No Symptoms Respiratory: No Symptoms Cardiac: No Symptoms Abdominal/Gastrointestinal: No Symptoms Genitourinary Symptoms: No Symptoms Musculoskeletal: No Symptoms Skin: No Symptoms Neurological: Dizziness Psychological: No Symptoms Endocrine: No Symptoms Hematologic/Lymphatic: No Symptoms Immunological/Allergic: No Symptoms All Other Systems: Reviewed and Negative - Past Medical History Pertinent Past Medical History: Yes Neurological History: No Pertinent History ENT History: Cataracts Cardiac History: Arrhythmia, Hypertension Respiratory History: No Pertinent History Endocrine Medical History: Hypothyroidism Musculoskeletal History: Fibromyalgia, Rheumatoid Arthritis GI Medical History: Diverticulosis, GERD, Other History: No Pertinent History Psycho-Social History: Anxiety Female Reproductive Disorders: No Pertinent History Other Medical History: UTI, A FIB, hiatal hernia, - Past Surgical History Past Surgical History: Yes Neuro Surgical History: No Pertinent History Cardiac: Pacemaker Respiratory: No Pertinent History Gastrointestinal: No Pertinent History Genitourinary: No Pertinent History Musculoskeletal: Other Female Surgical History: Tubal Ligation Other Surgical History: KNEE REPLACEMENT X 2,. RIGHT HIP. Cataract surgery - Social History Smoking Status: Never smoker Exposure to second hand smoke: No Alcohol Use: None Drug Use: none Patient Lives Alone: Yes Significant Family History: hypertension - Female History Hx Now: No - Nursing Vital Signs Nursing Vital Signs: Initial Vital Signs Temperature 97.6 F 07/17/19 14:36 Pulse Rate 64 07/17/19 14:36 Respiratory Rate 16 07/17/19 14:36 Blood Pressure 95/68 07/17/19 14:36 O2 Sat by Pulse Oximetry 94 L 07/17/19 14:36 Pain Scale Pain Intensity 0 - Physical Exam General Appearance: no apparent distress, alert, anxiety Eye Exam: PERRL/EOMI Ears, Nose, Throat Exam: TMs normal, dry mucous membranes Neck Exam: normal inspection, non-tender, supple, full range of motion Respiratory Exam: normal breath sounds, lungs clear, airway intact, No chest tenderness, No respiratory distress Cardiovascular Exam: regular rate/rhythm, normal heart sounds, normal peripheral pulses Gastrointestinal/Abdomen Exam: soft, normal bowel sounds, No tenderness Pelvic Exam: not done Rectal Exam: not done Back Exam: normal inspection, normal range of motion, No CVA tenderness, No vertebral tenderness Extremity Exam: normal inspection, normal range of motion, pelvis stable Neurologic Exam: alert, oriented x 3, cooperative, crime scene examiner II-XII nml as tested Skin Exam: normal color, warm, dry Lymphatic Exam: No adenopathy SpO2 Interpretation: borderline oxygenation SpO2: 94 O2 Delivery: Room Air - Course Nursing assessment & vital signs reviewed: Yes EKG Interpreted by Me: RATE (62), Other (pacemaker ekg. comparison ekg 05/20/19 no changes and no acute findings) Ordered Tests: Active Orders 24 hr Category Date Time Status EKG-ER Only STAT Care 07/17/19 15:23 Active IV Insertion STAT Care 07/17/19 15:23 Active Pulse Oximetry (ED) STAT Care 07/17/19 15:23 Active CBC W DIFF Stat Lab 07/17/19 15:00 Completed CMP Stat Lab 07/17/19 15:00 Completed CULTURE,URINE Stat Lab 07/17/19 16:00 Received TROPONIN Q3H Lab 07/17/19 15:00 Completed TROPONIN Q3H Lab 07/17/19 18:30 Ordered TROPONIN Q3H Lab 07/17/19 21:30 Ordered TROPONIN Q3H Lab 07/18/19 00:30 Ordered TROPONIN Q3H Lab 07/18/19 03:30 Ordered UA W/RFX UR CULTURE Stat Lab 07/17/19 16:00 Completed Transfer Order Routine Transfer 07/17/19 Ordered Medication Summary Discontinued Medications Generic Name Dose Route Start Last Admin Trade Name Freq PRN Reason Stop Dose Admin Sodium Chloride 1,000 mls @ 999 mls/hr 07/17/19 15:23 07/17/19 16:55 Sodium Chloride 0.9% 1000 Ml IV 07/17/19 16:23 Infused .Q1H1M STA Infusion Lab/Rad Data: Laboratory Result Diagrams 07/17/19 15:00 07/17/19 15:00 Laboratory Results 07/17/19 07/17/19 07/17/19 Range/Units 16:00 15:00 15:00 WBC (4.0-10.5) K/mm3 RBC (4.1-5.4) M/mm3 Hgb (12.0-16.0) gm/dl Hct (35-47) % MCV (78-100) fl MCH (26-32) pg MCHC (32-36) g/dl RDW (11.5-14.0) % Plt Count (150-450) K/mm3 MPV (6-9.5) fl Gran % (36.0-66.0) % Eos # (Auto) (0-0.5) Absolute Lymphs (auto) (1.0-4.6) Absolute Monos (auto) (0.0-1.3) Lymphocytes % (24.0-44.0) % Monocytes % (0.0-12.0) % Eosinophils % (0.00-5.0) % Basophils % (0.0-0.4) % Absolute Granulocytes (1.4-6.9) Basophils # (0-0.4) Sodium 136 L (137-145) mmol/L Potassium 4.8 (3.5-5.1) mmol/L Chloride 98 (98-107) mmol/L Carbon Dioxide 26 (22-30) mmol/L Anion Gap 16.7 H (5-15) MEQ/L BUN 31 H (7-17) mg/dL Creatinine 1.32 H (0.52-1.04) mg/dL Estimated GFR 41.4 ML/MIN Glucose 111 H (74-106) mg/dL Calcium 9.8 (8.4-10.2) mg/dL Total Bilirubin 1.00 (0.2-1.3) mg/dL AST 44 H (14-36) U/L ALT 22 (0-35) U/L Alkaline Phosphatase 117 (38-126) U/L Troponin I < 0.012 (0.000-0.034) ng/mL Serum Total Protein 8.9 H (6.3-8.2) g/dL Albumin 4.4 (3.5-5.0) g/dL Urine Color STACIE (YELLOW) Urine Appearance CLEAR (CLEAR) Urine pH 6.0 (5-6) Ur Specific [place] 1.005 (1.005-1.025) Urine Protein NEGATIVE (Negative) Urine Ketones NEGATIVE (NEGATIVE) Urine Blood NEGATIVE (0-5) Margar[place]/ul Urine Nitrite POSITIVE (NEGATIVE) Urine Bilirubin NEGATIVE (NEGATIVE) Urine Urobilinogen 4 (0-1) mg/dL Ur Leukocyte Esterase NEGATIVE (NEGATIVE) Urine WBC (Auto) 6-10 (0-5) /HPF Urine RBC (Auto) NONE (0-2) /HPF U Hyaline Cast (Auto) 3-5 (0-2) /LPF U Epithel Cells (Auto) NONE (FEW) /HPF Urine Bacteria (Auto) RARE (NEGATIVE) /HPF Urine Mucus (Auto) SLIGHT (NEGATIVE) /HPF Urine Culture Reflexed YES (NO) Urine Glucose NEGATIVE (NEGATIVE) mg/dL 07/17/19 Range/Units 15:00 WBC 7.2 (4.0-10.5) K/mm3 RBC 5.05 (4.1-5.4) M/mm3 Hgb 15.0 (12.0-16.0) gm/dl Hct 46.4 (35-47) % MCV 91.9 (78-100) fl MCH 29.7 (26-32) pg MCHC 32.3 (32-36) g/dl RDW 12.8 (11.5-14.0) % Plt Count 224 (150-450) K/mm3 MPV 9.8 H (6-9.5) fl Gran % 61.5 (36.0-66.0) % Eos # (Auto) 0.16 (0-0.5) Absolute Lymphs (auto) 2.11 (1.0-4.6) Absolute Monos (auto) 0.49 (0.0-1.3) Lymphocytes % 29.4 (24.0-44.0) % Monocytes % 6.8 (0.0-12.0) % Eosinophils % 2.2 (0.00-5.0) % Basophils % 0.1 (0.0-0.4) % Absolute Granulocytes 4.41 (1.4-6.9) Basophils # 0.01 (0-0.4) Sodium (137-145) mmol/L Potassium (3.5-5.1) mmol/L Chloride (98-107) mmol/L Carbon Dioxide (22-30) mmol/L Anion Gap (5-15) MEQ/L BUN (7-17) mg/dL Creatinine (0.52-1.04) mg/dL Estimated GFR ML/MIN Glucose (74-106) mg/dL Calcium (8.4-10.2) mg/dL Total Bilirubin (0.2-1.3) mg/dL AST (14-36) U/L ALT (0-35) U/L Alkaline Phosphatase (38-126) U/L Troponin I (0.000-0.034) ng/mL Serum Total Protein (6.3-8.2) g/dL Albumin (3.5-5.0) g/dL Urine Color (YELLOW) Urine Appearance (CLEAR) Urine pH (5-6) Ur Specific [place] (1.005-1.025) Urine Protein (Negative) Urine Ketones (NEGATIVE) Urine Blood (0-5) Margar[place]/ul Urine Nitrite (NEGATIVE) Urine Bilirubin (NEGATIVE) Urine Urobilinogen (0-1) mg/dL Ur Leukocyte Esterase (NEGATIVE) Urine WBC (Auto) (0-5) /HPF Urine RBC (Auto) (0-2) /HPF U Hyaline Cast (Auto) (0-2) /LPF U Epithel Cells (Auto) (FEW) /HPF Urine Bacteria (Auto) (NEGATIVE) /HPF Urine Mucus (Auto) (NEGATIVE) /HPF Urine Culture Reflexed (NO) Urine Glucose (NEGATIVE) mg/dL - Progress Progress: improved Progress Note: 07/17/19 17:[address] thibodeaux. i reviewed pt hx, condition, lab and ekg results. he accepts pt for placement in observation, iv hydration Counseled pt/family regarding: lab results, diagnosis, need for follow-up - Departure Departure Disposition: Observation Clinical Impression: UTI (urinary tract infection), Fall, Weakness Condition: Stable Critical Care Time: No Referrals: KURTIS THIBODEAUX MD [Primary Care Provider] -
[2019-07-17] MEDS ORDERED: Sodium Chloride 0.9% 1000 ML 1,000 ML IV STA (15:23)
[2019-07-17 15:32] LABS: Absolute Neutrophil Ct (ANC) 4.41 (1.4-6.9); BASOPHIL % 0.1 % (0.0-0.4); Basophil (Absolute #) 0.01 (0-0.4); Eosinophil % 2.2 % (0.00-5.0); Eosinophil (Absolute #) 0.16 (0-0.5); Hematocrit 46.4 % (35-47); Lymphocyte (Absolute #) 2.11 (1.0-4.6); Lymphocytes % 29.4 % (24.0-44.0); Mean Cell Volume 91.9 fl (78-100); Mean Corpuscular Hemoglobin 29.7 pg (26-32); Mean Corpuscular Hgb Concent. 32.3 g/dl (32-36); Mean Platelet Volume 9.8 fl (6-9.5); Monocyte (Absolute #) 0.49 (0.0-1.3); Monocytes % 6.8 % (0.0-12.0); Neutrophil % 61.5 % (36.0-66.0); Platelet Count 224 K/mm3 (150-450); Red Blood Count 5.05 M/mm3 (4.1-5.4); Red Cell Distribution Width 12.8 % (11.5-14.0); White Blood Count 7.2 K/mm3 (4.0-10.5)
[2019-07-17 15:37] LABS: ALBUMIN 4.4 g/dL (3.5-5.0); ANION GAP 16.7 MEQ/L (5-15); Calcium 9.8 mg/dL (8.4-10.2); Creatinine 1 1.32 mg/dL (0.52-1.04); Potassium 4.8 mmol/L (3.5-5.1); Total Protein 8.9 g/dL (6.3-8.2)
[2019-07-17 16:17] LABS: Appearance CLEAR (CLEAR); Bacteria RARE /HPF (NEGATIVE); Bilirubin NEGATIVE (NEGATIVE); Blood NEGATIVE Ery/ul (0-5); Glucose NEGATIVE (NEGATIVE); Ketones NEGATIVE (NEGATIVE); Leukocyte Esterase NEGATIVE (NEGATIVE); Mucus SLIGHT /HPF (NEGATIVE); Nitrite POSITIVE (NEGATIVE); Protein,Urine Dip NEGATIVE (Negative); Specific Gravity 1.005 (1.005-1.025); Urobilinogen 4 mg/dL (0-1)
[2019-07-17] MEDS ORDERED: ROCEPHIN 1 Gm-D5w 50 ml Bag** 1 G/50 ML IVPB IV STA (17:19)
[2019-07-17] MEDS ORDERED: ROCEPHIN 1 Gm-D5w 50 ml Bag** 1 G/50 ML IVPB IV ONE (17:25)
[2019-07-17] MEDS ORDERED: Zofran 4 MG/2 ML VIAL IV PRN (17:56)
[2019-07-17] MEDS: Sodium Chloride 0.9% 1000 ML 1,000 ML IV SCH (20:05)
[2019-07-17] MEDS: ELIQUIS 2.5 MG TABLET PO SCH (21:56)
[2019-07-17] MEDS: BENTYL 20 MG PO SCH (21:56)
[2019-07-17] MEDS: COREG 12.5 MG PO SCH (21:56)
[2019-07-17] MEDS: NEURONTIN 300 MG PO SCH (21:56)
[2019-07-17] MEDS: TYLENOL 325 MG PO PRN (21:59)
[2019-07-18] MEDS ORDERED: Sodium Chloride 0.9% 500 ML 500 ML IV ONE (01:53)
[2019-07-18] MEDS: Sodium Chloride 0.9% 1000 ML 1,000 ML IV SCH ×3 (02:21→20:05)
[2019-07-18 04:26] LABS: BASOPHIL % 0.3 % (0.0-0.4); Basophil (Absolute #) 0.02 (0-0.4); Eosinophil % 2.3 % (0.00-5.0); Eosinophil (Absolute #) 0.18 (0-0.5); Hematocrit 43.7 % (35-47); Lymphocyte (Absolute #) 2.13 (1.0-4.6); Lymphocytes % 27.1 % (24.0-44.0); Mean Cell Volume 92.8 fl (78-100); Mean Corpuscular Hemoglobin 29.7 pg (26-32); Mean Platelet Volume 9.9 fl (6-9.5); Monocyte (Absolute #) 0.74 (0.0-1.3); Monocytes % 9.4 % (0.0-12.0); Neutrophil % 60.9 % (36.0-66.0); Platelet Count 188 K/mm3 (150-450); Red Blood Count 4.71 M/mm3 (4.1-5.4); Red Cell Distribution Width 12.9 % (11.5-14.0); White Blood Count 7.9 K/mm3 (4.0-10.5)
[2019-07-18] MEDS: BENTYL 20 MG PO SCH ×2 (09:11→20:33)
[2019-07-18] MEDS: COREG 12.5 MG PO SCH ×2 (09:11→20:32)
[2019-07-18] MEDS: ROCEPHIN 1 Gm-D5w 50 ml Bag** 1 G/50 ML IVPB IV SCH (09:11)
[2019-07-18] MEDS: ELIQUIS 2.5 MG TABLET PO SCH ×2 (09:11→20:31)
--- NOTE | 2019-07-18 10:40 | PCM.HP ---
History of Present Illness - Chief Complaint Chief Complaint: uti History of Present Illness: is a 79 year old female who reported to the ER with a 3 day history of feeling weak and falls, she saw her air sampler who made some medication changes but she had not yet instituted them, symptoms were present before the visit. She has a history of syncopal episodes and had one after arrival, was hypotensive last night and unable to get up, her bp has increased with a bolus and she is tolerating getting up this morning. - Review of Systems Constitutional: Weakness, No Fever, No Chills Cardiac: Syncope, No Chest Pain, No Palpitations Abdominal/Gastrointestinal: No Abdominal Pain, No Nausea, No Vomiting, No Diarrhea Skin: No Rash Neurological: No Dizziness, No Focal Weakness, No Sensory Changes All Other Systems: Reviewed and Negative Medications & Allergies Home Medications: Home Medication List Dicyclomine HCl [Bentyl] 10 mg PO BID 01/26/13 [History Confirmed 07/17/19] Gabapentin [Neurontin] 200 mg PO DAILY 05/06/16 [History Confirmed 07/17/19] Levothyroxine Sodium [Synthroid] 100 mcg PO DAILY 05/06/16 [History Confirmed ] Gabapentin 300 mg PO HS 05/29/17 [History Confirmed 07/17/19] Apixaban [Eliquis 2.5 mg Tablet] 2.5 mg PO BID 05/20/19 [History Confirmed ] Carvedilol 25 mg PO BID 05/20/19 [History Confirmed 07/17/19] Denosumab 60 mg [Prolia 60 mg Injection] 60 mg IM CLARIFY 05/20/19 [ History Confirmed 07/17/19] Amiodarone HCl 200 mg [Cordarone 200 MG] 200 mg PO DAILY 07/17/19 [ History Confirmed 07/17/19] Furosemide 20 mg [Lasix 20 mg] 20 mg PO DAILY 07/17/19 [History Confirmed 07/17/19] Irbesartan 150 mg PO BID 07/17/19 [History Confirmed 07/18/19] Atorvastatin Calcium 10 mg PO DAILY 07/18/19 [History Confirmed 07/18/19] Bumetanide 2 mg PO DAILY 07/18/19 [History Confirmed 07/18/19] Meclizine HCl 25 mg [Antivert 25 mg] 25 mg PO TID 07/18/19 [History Confirmed 07/18/19] Spironolactone 25 mg [Aldactone 25 MG] 25 mg PO DAILY 07/18/19 [History Confirmed 07/18/19] Verapamil HCl [Verapamil ER Pm] 200 mg PO DAILY 07/18/19 [History Confirmed ] Allergies/Adverse Reactions: Allergies Allergy/AdvReac Type Severity Reaction Status Date / Time No Known Drug Allergies Allergy Verified 07/17/19 14:51 - Past Medical History Past Medical History: Yes Neurological History: No Pertinent History ENT History: Cataracts Cardiac History: Arrhythmia, Hypertension Respiratory History: No Pertinent History Endocrine Medical History: Hypothyroidism Musculoskelatal History: Fibromyalgia, Rheumatoid Arthritis GI Medical History: Diverticulosis, GERD, Other History: No Pertinent History Pyscho-Social History: Anxiety Reproductive Disorders: No Pertinent History Comment: UTI, A FIB, hiatal hernia, - Female History Are you now?: No - Past Surgical History Past Surgical History: Yes Neuro Surgical History: No Pertinent History Cardiac History: Pacemaker Respiratory Surgery: No Pertinent History GI Surgical History: No Pertinent History Genitourinary Surgical Hx: No Pertinent History Musculskeletal Surgical Hx: Other Female Surgical History: Tubal Ligation Other Surgical History: KNEE REPLACEMENT X 2,. RIGHT HIP. Cataract surgery - Social History Smoking Status: Never smoker Exposure to second hand smoke: No Alcohol: None Drug Use: none Significant Family History: hypertension - Physical Exam Vital Signs: Vital Signs - 24 hr Temp Pulse Resp BP Pulse Ox 07/18/19 07:25 98.3 F 65 18 144/67 97 07/18/19 04:00 97.7 F 76 18 108/57 94 L 07/18/19 00:00 65 16 07/17/19 20:00 98.6 F 91 H 16 124/70 93 L 07/17/19 18:23 98.0 F 69 20 140/70 94 L 07/17/19 17:32 15 98 07/17/19 17:18 94 L 07/17/19 15:55 92 H 18 118/85 97 07/17/19 15:47 73 18 94/57 96 07/17/19 14:36 97.6 F 64 16 95/68 94 L General Appearance: no apparent distress Neurologic Exam: alert, oriented x 3, cooperative Eye Exam: PERRL/EOMI, eyes nml inspection Respiratory Exam: normal breath sounds, lungs clear, No respiratory distress Cardiovascular Exam: regular rate/rhythm, normal heart sounds, normal peripheral pulses Gastrointestinal/Abdomen Exam: soft, normal bowel sounds, No tenderness, No mass Extremity Exam: normal inspection, normal range of motion, pelvis stable Skin Exam: normal color, warm, dry, No rash Results - Labs Lab/Micro Results: Lab Results-Last 24 Hours 07/17/19 07/17/19 07/17/19 Range/Units 15:00 15:00 15:00 WBC 7.2 (4.0-10.5) K/mm3 RBC 5.05 (4.1-5.4) M/mm3 Hgb 15.0 (12.0-16.0) gm/dl Hct 46.4 (35-47) % MCV 91.9 (78-100) fl MCH 29.7 (26-32) pg MCHC 32.3 (32-36) g/dl RDW 12.8 (11.5-14.0) % Plt Count 224 (150-450) K/mm3 MPV 9.8 H (6-9.5) fl Gran % 61.5 (36.0-66.0) % Eos # (Auto) 0.16 (0-0.5) Absolute Lymphs (auto) 2.11 (1.0-4.6) Absolute Monos (auto) 0.49 (0.0-1.3) Lymphocytes % 29.4 (24.0-44.0) % Monocytes % 6.8 (0.0-12.0) % Eosinophils % 2.2 (0.00-5.0) % Basophils % 0.1 (0.0-0.4) % Absolute Granulocytes 4.41 (1.4-6.9) Basophils # 0.01 (0-0.4) Sodium 136 L (137-145) mmol/L Potassium 4.8 (3.5-5.1) mmol/L Chloride 98 (98-107) mmol/L Carbon Dioxide 26 (22-30) mmol/L Anion Gap 16.7 H (5-15) MEQ/L BUN 31 H (7-17) mg/dL Creatinine 1.32 H (0.52-1.04) mg/dL Estimated GFR 41.4 ML/MIN Glucose 111 H (74-106) mg/dL Calcium 9.8 (8.4-10.2) mg/dL Total Bilirubin 1.00 (0.2-1.3) mg/dL AST 44 H (14-36) U/L ALT 22 (0-35) U/L Alkaline Phosphatase 117 (38-126) U/L Troponin I < 0.012 (0.000-0.034) ng/mL Serum Total Protein 8.9 H (6.3-8.2) g/dL Albumin 4.4 (3.5-5.0) g/dL Urine Color (YELLOW) Urine Appearance (CLEAR) Urine pH (5-6) Ur Specific [place] (1.005-1.025) Urine Protein (Negative) Urine Ketones (NEGATIVE) Urine Blood (0-5) Margarito/ul Urine Nitrite (NEGATIVE) Urine Bilirubin (NEGATIVE) Urine Urobilinogen (0-1) mg/dL Ur Leukocyte Esterase (NEGATIVE) Urine WBC (Auto) (0-5) /HPF Urine RBC (Auto) (0-2) /HPF U Hyaline Cast (Auto) (0-2) /LPF U Epithel Cells (Auto) (FEW) /HPF Urine Bacteria (Auto) (NEGATIVE) /HPF Urine Mucus (Auto) (NEGATIVE) /HPF Urine Culture Reflexed (NO) Urine Glucose (NEGATIVE) mg/dL 07/17/19 07/17/19 07/17/19 Range/Units 16:00 18:25 21:30 WBC (4.0-10.5) K/mm3 RBC (4.1-5.4) M/mm3 Hgb (12.0-16.0) gm/dl Hct (35-47) % MCV (78-100) fl MCH (26-32) pg MCHC (32-36) g/dl RDW (11.5-14.0) % Plt Count (150-450) K/mm3 MPV (6-9.5) fl Gran % (36.0-66.0) % Eos # (Auto) (0-0.5) Absolute Lymphs (auto) (1.0-4.6) Absolute Monos (auto) (0.0-1.3) Lymphocytes % (24.0-44.0) % Monocytes % (0.0-12.0) % Eosinophils % (0.00-5.0) % Basophils % (0.0-0.4) % Absolute Granulocytes (1.4-6.9) Basophils # (0-0.4) Sodium (137-145) mmol/L Potassium (3.5-5.1) mmol/L Chloride (98-107) mmol/L Carbon Dioxide (22-30) mmol/L Anion Gap (5-15) MEQ/L BUN (7-17) mg/dL Creatinine (0.52-1.04) mg/dL Estimated GFR ML/MIN Glucose (74-106) mg/dL Calcium (8.4-10.2) mg/dL Total Bilirubin (0.2-1.3) mg/dL AST (14-36) U/L ALT (0-35) U/L Alkaline Phosphatase (38-126) U/L Troponin I < 0.012 < 0.012 (0.000-0.034) ng/mL Serum Total Protein (6.3-8.2) g/dL Albumin (3.5-5.0) g/dL Urine Color STACIE (YELLOW) Urine Appearance CLEAR (CLEAR) Urine pH 6.0 (5-6) Ur Specific [place] 1.005 (1.005-1.025) Urine Protein NEGATIVE (Negative) Urine Ketones NEGATIVE (NEGATIVE) Urine Blood NEGATIVE (0-5) Margarito/ul Urine Nitrite POSITIVE (NEGATIVE) Urine Bilirubin NEGATIVE (NEGATIVE) Urine Urobilinogen 4 (0-1) mg/dL Ur Leukocyte Esterase NEGATIVE (NEGATIVE) Urine WBC (Auto) 6-10 (0-5) /HPF Urine RBC (Auto) NONE (0-2) /HPF U Hyaline Cast (Auto) 3-5 (0-2) /LPF U Epithel Cells (Auto) NONE (FEW) /HPF Urine Bacteria (Auto) RARE (NEGATIVE) /HPF Urine Mucus (Auto) SLIGHT (NEGATIVE) /HPF Urine Culture Reflexed YES (NO) Urine Glucose NEGATIVE (NEGATIVE) mg/dL 07/18/19 07/18/19 07/18/19 Range/Units 00:27 04:07 04:07 WBC 7.9 (4.0-10.5) K/mm3 RBC 4.71 (4.1-5.4) M/mm3 Hgb 14.0 (12.0-16.0) gm/dl Hct 43.7 (35-47) % MCV 92.8 (78-100) fl MCH 29.7 (26-32) pg MCHC 32.0 (32-36) g/dl RDW 12.9 (11.5-14.0) % Plt Count 188 (150-450) K/mm3 MPV 9.9 H (6-9.5) fl Gran % 60.9 (36.0-66.0) % Eos # (Auto) 0.18 (0-0.5) Absolute Lymphs (auto) 2.13 (1.0-4.6) Absolute Monos (auto) 0.74 (0.0-1.3) Lymphocytes % 27.1 (24.0-44.0) % Monocytes % 9.4 (0.0-12.0) % Eosinophils % 2.3 (0.00-5.0) % Basophils % 0.3 (0.0-0.4) % Absolute Granulocytes 4.80 (1.4-6.9) Basophils # 0.02 (0-0.4) Sodium (137-145) mmol/L Potassium (3.5-5.1) mmol/L Chloride (98-107) mmol/L Carbon Dioxide (22-30) mmol/L Anion Gap (5-15) MEQ/L BUN (7-17) mg/dL Creatinine (0.52-1.04) mg/dL Estimated GFR ML/MIN Glucose (74-106) mg/dL Calcium (8.4-10.2) mg/dL Total Bilirubin (0.2-1.3) mg/dL AST (14-36) U/L ALT (0-35) U/L Alkaline Phosphatase (38-126) U/L Troponin I < 0.012 < 0.012 (0.000-0.034) ng/mL Serum Total Protein (6.3-8.2) g/dL Albumin (3.5-5.0) g/dL Urine Color (YELLOW) Urine Appearance (CLEAR) Urine pH (5-6) Ur Specific [place] (1.005-1.025) Urine Protein (Negative) Urine Ketones (NEGATIVE) Urine Blood (0-5) Margarito/ul Urine Nitrite (NEGATIVE) Urine Bilirubin (NEGATIVE) Urine Urobilinogen (0-1) mg/dL Ur Leukocyte Esterase (NEGATIVE) Urine WBC (Auto) (0-5) /HPF Urine RBC (Auto) (0-2) /HPF U Hyaline Cast (Auto) (0-2) /LPF U Epithel Cells (Auto) (FEW) /HPF Urine Bacteria (Auto) (NEGATIVE) /HPF Urine Mucus (Auto) (NEGATIVE) /HPF Urine Culture Reflexed (NO) Urine Glucose (NEGATIVE) mg/dL Microbiology 07/17/19 16:00 Urine Culture - Preliminary Urine, Void GRAM NEGATIVE ID AND SENSITIVITY PENDING Assessment/Plan (1) UTI (urinary tract infection) Current Visit: Yes Status: Acute Assessment & Plan: on rocephin, culture pending Code(s): N39.0 - URINARY TRACT INFECTION, SITE NOT SPECIFIED (2) Weakness Current Visit: Yes Status: Acute Code(s): R53.1 - WEAKNESS (3) Dehydration Current Visit: No Status: Acute Assessment & Plan: mild hydration, hold diuretics. home med list shows bumetanide, furosemide and spironolactone. Code(s): E86.0 - DEHYDRATION (4) hypotension Current Visit: No Status: Acute Assessment & Plan: hold verapamil, cut dose of coreg to 12.5mg bid instead of 25 and cut irbesartan to 150mg once daily from twice, hold diuretics and gently hydrate, will need close monitoring of volume status (5) Sick sinus syndrome Current Visit: No Status: Acute Code(s): I49.5 - SICK SINUS SYNDROME
[2019-07-18] MEDS: Neurontin 100 MG PO SCH (12:01)
[2019-07-18] MEDS: Zocor 10MG PO SCH (12:01)
[2019-07-18] MEDS: TYLENOL 325 MG PO PRN ×2 (12:01→20:37)
[2019-07-18] MEDS: Cordarone 200 MG PO SCH (12:01)
[2019-07-18] MEDS: SYNTHROID 100 MCG PO SCH (12:02)
[2019-07-18] MEDS: Avapro 150 MG PO SCH (12:02)
[2019-07-18] MEDS: NEURONTIN 300 MG PO SCH (20:31)
[2019-07-19] MEDS: Sodium Chloride 0.9% 1000 ML 1,000 ML IV SCH ×2 (06:02→15:52)
[2019-07-19] MEDS: Neurontin 100 MG PO SCH (09:14)
[2019-07-19] MEDS: ROCEPHIN 1 Gm-D5w 50 ml Bag** 1 G/50 ML IVPB IV SCH (09:14)
[2019-07-19] MEDS: Avapro 150 MG PO SCH (09:15)
[2019-07-19] MEDS: Zocor 10MG PO SCH (09:15)
[2019-07-19] MEDS: COREG 12.5 MG PO SCH ×2 (09:15→21:49)
[2019-07-19] MEDS: BENTYL 20 MG PO SCH ×2 (09:15→21:49)
[2019-07-19] MEDS: ELIQUIS 2.5 MG TABLET PO SCH ×2 (09:15→21:49)
[2019-07-19] MEDS: Cordarone 200 MG PO SCH (09:15)
[2019-07-19] MEDS: SYNTHROID 100 MCG PO SCH (09:15)
--- NOTE | 2019-07-19 09:39 | PCM.NOTE ---
Date and Time: 07/19/19937 Subjective Assessment: patient is improving but still weak and unsteady on her feet. no presyncopal/ syncopal episodes Objective Exam General Appearance: no apparent distress, alert Skin Exam: normal color, warm, dry Respiratory Exam: normal breath sounds, lungs clear, No respiratory distress Cardiovascular Exam: regular rate/rhythm, normal heart sounds Gastrointestinal/Abdomen Exam: soft, No tenderness, No mass OBJECTIVE DATA Vital Signs: Vital Signs - 24 hr Temp Pulse Resp BP Pulse Ox 07/19/19 07:53 98.4 F 78 18 135/74 93 L 07/19/19 04:00 97.9 F 77 17 124/57 94 L 07/19/19 00:00 97.9 F 75 19 142/63 94 L 07/18/19 20:00 98.1 F 75 19 150/71 94 L 07/18/19 16:00 98.0 F 70 18 143/65 96 07/18/19 12:00 98.1 F 75 18 153/69 96 Pain Assessment - Last Documented Pain Intensity 0 Pain Scale Used 0-10 Pain Scale,FLACC Intake and Output: Intake & Output 07/16/19 07/17/19 07/18/19 07/19/19 11:59 11:59 11:59 11:59 Intake Total 2096 4105 Output Total 500 2800 Balance 1596 1305 Weight 96.5 kg 96.2 kg Assessment/Plan (1) UTI (urinary tract infection) Current Visit: Yes Status: Acute Assessment & Plan: continue rocephin, sens on culture Code(s): N39.0 - URINARY TRACT INFECTION, SITE NOT SPECIFIED (2) Weakness Current Visit: Yes Status: Acute Code(s): R53.1 - WEAKNESS (3) Dehydration Current Visit: No Status: Acute Code(s): E86.0 - DEHYDRATION (4) hypotension Current Visit: No Status: Acute Assessment & Plan: improved with med changes (5) Sick sinus syndrome Current Visit: No Status: Acute Code(s): I49.5 - SICK SINUS SYNDROME
[2019-07-19] MEDS ORDERED: LEVOTHYROXINE SODIUM 100 MCG PO SCH (10:00)
[2019-07-19] MEDS ORDERED: NON-FORMULARY ITEM (Atorvastatin Calcium [Atorvastatin Calcium] 10 MG) PO SCH (10:00)
[2019-07-19] MEDS: NEURONTIN 300 MG PO SCH (21:49)
[2019-07-19] MEDS: TYLENOL 325 MG PO PRN (21:49)
[2019-07-20] MEDS: Sodium Chloride 0.9% 1000 ML 1,000 ML IV SCH (02:05)
[2019-07-20 04:49] LABS: Absolute Neutrophil Ct (ANC) 4.05 (1.4-6.9); BASOPHIL % 0.1 % (0.0-0.4); Basophil (Absolute #) 0.01 (0-0.4); Eosinophil % 3.5 % (0.00-5.0); Eosinophil (Absolute #) 0.26 (0-0.5); Hematocrit 41.1 % (35-47); Hemoglobin 13.2 gm/dl (12.0-16.0); Lymphocyte (Absolute #) 2.37 (1.0-4.6); Lymphocytes % 32.3 % (24.0-44.0); Mean Cell Volume 93.6 fl (78-100); Mean Corpuscular Hemoglobin 30.1 pg (26-32); Mean Corpuscular Hgb Concent. 32.1 g/dl (32-36); Mean Platelet Volume 9.8 fl (6-9.5); Monocyte (Absolute #) 0.64 (0.0-1.3); Monocytes % 8.7 % (0.0-12.0); Neutrophil % 55.4 % (36.0-66.0); Platelet Count 165 K/mm3 (150-450); Red Blood Count 4.39 M/mm3 (4.1-5.4); Red Cell Distribution Width 12.9 % (11.5-14.0); White Blood Count 7.3 K/mm3 (4.0-10.5)
[2019-07-20 05:24] LABS: ANION GAP 12.1 MEQ/L (5-15); BLOOD UREA NITROGEN 20 mg/dL (7-17); CHLORIDE 107 mmol/L (98-107); Calcium 8.1 mg/dL (8.4-10.2); Carbon Dioxide 24 mmol/L (22-30); Creatinine 1 0.86 mg/dL (0.52-1.04); Glucose 95 mg/dL (74-106); Potassium 4.3 mmol/L (3.5-5.1); SODIUM 139 mmol/L (137-145)
[2019-07-20 07:37] VITALS: BP 169/73; PULSE 75; O2SAT 96
--- NOTE | 2019-07-20 08:33 | PCM.DS ---
Discharge Summary Date of Admission: 07/17/19 17:20 Admitting Physician: KURTIS THIBODEAUX Primary Care Provider: KURTIS THIBODEAUX Allergies Allergies No Known Drug Allergies Allergy (Verified 07/17/19 14:51) Hospital Summary - Hospital Course Hospital Course: patient was admitted with falls and weakness, sees Dr Manpreet Amaro and has a pacemaker. she has been getting very dizzy and has had syncope. she has felt very tired, was hypotensive and had a syncopal episode after admission, no evidence of NM and meds were adjusted. her bp has improved, she has uti e coli on culture and has been on rocephin. she has more energy, is able to ambulate and feels much more steady on her feet at this time. agrees ot home health referral for PT - Vitals & Intake/Output Vital Signs: Vital Signs Temperature 98.3 F 07/20/19 07:35 Pulse Rate 75 07/20/19 07:35 Respiratory Rate 18 07/20/19 07:35 Blood Pressure 169/73 07/20/19 07:35 O2 Sat by Pulse Oximetry 96 07/20/19 07:35 Intake & Output: Intake & Output 07/17/19 07/18/19 07/19/19 07/20/19 11:59 11:59 11:59 11:59 Intake Total 2096 4585 3546 Output Total 500 3400 3450 Balance 1596 1185 96 Weight 96.5 kg 96.2 kg 96.2 kg - Lab Result Diagrams: 07/20/19 04:15 07/20/19 04:15 Lab Results-Last 24 Hrs: Lab Results-Last 24 Hours 07/20/19 07/20/19 Range/Units 04:15 04:15 WBC 7.3 (4.0-10.5) K/mm3 RBC 4.39 (4.1-5.4) M/mm3 Hgb 13.2 (12.0-16.0) gm/dl Hct 41.1 (35-47) % MCV 93.6 (78-100) fl MCH 30.1 (26-32) pg MCHC 32.1 (32-36) g/dl RDW 12.9 (11.5-14.0) % Plt Count 165 (150-450) K/mm3 MPV 9.8 H (6-9.5) fl Gran % 55.4 (36.0-66.0) % Eos # (Auto) 0.26 (0-0.5) Absolute Lymphs (auto) 2.37 (1.0-4.6) Absolute Monos (auto) 0.64 (0.0-1.3) Lymphocytes % 32.3 (24.0-44.0) % Monocytes % 8.7 (0.0-12.0) % Eosinophils % 3.5 (0.00-5.0) % Basophils % 0.1 (0.0-0.4) % Absolute Granulocytes 4.05 (1.4-6.9) Basophils # 0.01 (0-0.4) Sodium 139 (137-145) mmol/L Potassium 4.3 (3.5-5.1) mmol/L Chloride 107 (98-107) mmol/L Carbon Dioxide 24 (22-30) mmol/L Anion Gap 12.1 (5-15) MEQ/L BUN 20 H (7-17) mg/dL Creatinine 0.86 (0.52-1.04) mg/dL Estimated GFR > 60.0 ML/MIN Glucose 95 (74-106) mg/dL Calcium 8.1 L (8.4-10.2) mg/dL Micro Results-Entire Visit: Microbiology 07/17/19 16:00 Urine Culture - Final Urine, Void Escherichia Coli - Procedures and Test Procedures and Tests throughout Hospitalization: Therapy Orders & Screens 07/17/19 19:26 OT Screen per Nursing Assess Comment: Protocol Order Physician Instructions: Greater than 3 points order OT Admission Screening Reason For Exam: Triggered on Admission Diagnosis: uti Open Wound/Cellutlitis/Pressure Ulcers: No Acute Fx/ORIF/Change in wt bearing status: No Severe MUSCULOSKELETAL pain: No ADL Dysfunction: Yes Acute CVA w/Hemiparesis/Hemiplegia: No Decreased Functional Mobility/Strength: Yes Sprain/Strain: No Acute Post-op Mobility Dysfunction: No Total Points: 4 PT Screen per Nursing Assess Comment: Protocol Order Physician Instructions: Greater than 3 points order PT Admission Screenin Reason For Exam: Triggered on Admission Diagnosis: uti Open Wound/Cellutlitis/Pressure Ulcers: No Acute Fx/ORIF/Change in wt bearing status: No Severe MUSCULOSKELETAL pain: No ADL Dysfunction: Yes Acute CVA w/Hemiparesis/Hemiplegia: No Decreased Functional Mobility/Strength: Yes Sprain/Strain: No Acute Post-op Mobility Dysfunction: No Total Points: 4 07/17/19 21:12 EKG ROUTINE Comment: Diagnosis: uti 07/19/19 09:39 PT Eval & Treat (MD Order) ROUTINE Reason for Eval:: weakness, falls, unsteady gait Diagnosis: uti Discharge Exam General Appearance: no apparent distress, alert Neurologic Exam: alert, oriented x 3, other (ambulates with a walker) Eye Exam: PERRL, EOMI, eyes nml inspection Respiratory Exam: normal breath sounds, lungs clear, No respiratory distress Cardiovascular Exam: regular rate/rhythm, normal heart sounds Gastrointestinal/Abdomen Exam: soft, No tenderness, No mass Final Diagnosis/Problem List - Final Discharge Diagnosis/Problem (1) hypotension Current Visit: No Status: Acute Assessment & Plan: decreased coreg dosage, d/c verapamil, decrease avapro (2) UTI (urinary tract infection) Current Visit: Yes Status: Acute Assessment & Plan: home on po bactrim Code(s): N39.0 - URINARY TRACT INFECTION, SITE NOT SPECIFIED (3) Weakness Current Visit: Yes Status: Acute Assessment & Plan: home health referral for PT, patient unable to drive and absences from the home are brief and require a serious and taxing effort Code(s): R53.1 - WEAKNESS (4) Dehydration Current Visit: No Status: Acute Code(s): E86.0 - DEHYDRATION (5) Sick sinus syndrome Current Visit: No Status: Acute Code(s): I49.5 - SICK SINUS SYNDROME - Discharge Disposition: Home, Self-Care Condition: Stable Prescriptions: New Irbesartan 150 mg [Avapro 150 MG] 150 mg PO DAILY #30 tablet Sulfamethoxazole/Trimethoprim [Bactrim Ds Tablet] 1 each PO BID #10 tablet Carvedilol 12.5 mg [Coreg 12.5 mg] 12.5 mg PO BID #60 tablet Continue Dicyclomine HCl [Bentyl] 10 mg PO BID Levothyroxine Sodium [Synthroid] 100 mcg PO DAILY Gabapentin [Neurontin] 200 mg PO DAILY Gabapentin 300 mg PO HS Denosumab 60 mg [Prolia 60 mg Injection] 60 mg IM CLARIFY Apixaban [Eliquis 2.5 mg Tablet] 2.5 mg PO BID Furosemide 20 mg [Lasix 20 mg] 20 mg PO DAILY Amiodarone HCl 200 mg [Cordarone 200 MG] 200 mg PO DAILY Atorvastatin Calcium 10 mg PO DAILY Meclizine HCl 25 mg [Antivert 25 mg] 25 mg PO TID Spironolactone 25 mg [Aldactone 25 MG] 25 mg PO DAILY Discontinued Carvedilol 25 mg PO BID Irbesartan 150 mg PO BID Verapamil HCl [Verapamil ER Pm] 200 mg PO DAILY Bumetanide 2 mg PO DAILY Follow up with: KURTIS THIBODEAUX MD [Primary Care Provider] - 1 Week ALYSSA AMARO [CONSULTING PHYSICIAN] - 1 Week
[2019-07-20] MEDS: ROCEPHIN 1 Gm-D5w 50 ml Bag** 1 G/50 ML IVPB IV SCH (09:37)
[2019-07-20] MEDS: BENTYL 20 MG PO SCH (09:37)
[2019-07-20] MEDS: COREG 12.5 MG PO SCH (09:38)
[2019-07-20] MEDS: Zocor 10MG PO SCH (09:38)
[2019-07-20] MEDS: Avapro 150 MG PO SCH (09:39)
[2019-07-20] MEDS: SYNTHROID 100 MCG PO SCH (09:39)
[2019-07-20] MEDS: ELIQUIS 2.5 MG TABLET PO SCH (09:39)
[2019-07-20] MEDS: Cordarone 200 MG PO SCH (09:39)
[2019-07-20] MEDS: Neurontin 100 MG PO SCH (09:40)
== END 2019-07-20 10:50 | disposition home health service (06) ==
LOC: ED 14:34 → MED SURG 17:20
PROVIDERS: ADMIT Family Medicine; ATTEND Family Medicine
DX: I95.9 Hypotension, unspecified (principal); N39.0 Urinary tract infection, site not specified; R55 Syncope and collapse; R42 Dizziness and giddiness; I49.5 Sick sinus syndrome; Z95.0 Presence of cardiac pacemaker; E86.0 Dehydration; M79.7 Fibromyalgia; M06.9 Rheumatoid arthritis, unspecified; I48.91 Unspecified atrial fibrillation; K44.9 Diaphragmatic hernia without obstruction or gangrene; I10 Essential (primary) hypertension; Z79.01 Long term (current) use of anticoagulants; Z79.899 Other long term (current) drug therapy; E03.9 Hypothyroidism, unspecified
CPT/HCPCS: 36000; 36415; 80048; 80053; 81001; 84484; 85025; 87077; 87086; 87186; 93005; 94760; 96360; 97161; 99285; G0378; J0696; A9270-GY

== ENCOUNTER 2019-07-22 12:39 | Inpatient (IN) | payer MEDICARE ==
--- NOTE | 2019-07-22 13:02 | ERPHSYRPT ---
- History of Present Illness Time Seen by Provider: 07/22/19 12:55 Source: patient Exam Limitations: no limitations Physician History: Patient was walking using her four prong walker. Patient tripped over the prong , falling forward and hitting her right forehead against the door frame. Patient also landed on her knees, causing mild pain. Patient has swelling to her right forehead. Patient feels her knee replacements may not be working very well. Occurred: hours ago (1) Severity: mild Head Injury Location: frontal Method of Injury: fell Loss of Consciousness: no loss of consciousness Associated Symptoms: No nausea, No vomiting, No abdominal pain, No shortness of breath, No diaphoresis, No cough, No chills, No chest pain, No fever, No malaise , No syncope, No seizure, No weakness Allergies/Adverse Reactions: No Known Drug Allergies Allergy (Verified 07/22/19 12:58) Home Medications: Dicyclomine HCl [Bentyl] 10 mg PO BID 01/26/13 [History] Gabapentin [Neurontin] 200 mg PO DAILY 05/06/16 [History] Levothyroxine Sodium [Synthroid] 100 mcg PO DAILY 05/06/16 [History] Gabapentin 300 mg PO HS 05/29/17 [History] Apixaban [Eliquis 2.5 mg Tablet] 2.5 mg PO BID 05/20/19 [History] Denosumab 60 mg [Prolia 60 mg Injection] 60 mg IM CLARIFY 05/20/19 [ History] Amiodarone HCl 200 mg [Cordarone 200 MG] 200 mg PO DAILY 07/17/19 [History ] Furosemide 20 mg [Lasix 20 mg] 20 mg PO DAILY 07/17/19 [History] Atorvastatin Calcium 10 mg PO DAILY 07/18/19 [History] Meclizine HCl 25 mg [Antivert 25 mg] 25 mg PO TID 07/18/19 [History] Spironolactone 25 mg [Aldactone 25 MG] 25 mg PO DAILY 07/18/19 [History] Duloxetine HCl 20 mg DAILY 07/22/19 [History] Melatonin 3 mg DAILY 07/22/19 [History] Sulfamethoxazole/Trimethoprim [Bactrim Ds Tablet] 1 ea BID 07/22/19 [History] Vit D3/Folic Acid/B2/B6/B12 [Folgard Tablet] 1 ea DAILY 07/22/19 [History] Hx Tetanus, Diphtheria Vaccination/Date Given: No Hx Influenza Vaccination/Date Given: No Hx Pneumococcal Vaccination/Date Given: Yes - Review of Systems Constitutional: No Fever, No Fatigue, No Lethargy, No Malaise Eyes: No Eye Pain, No Eye Redness, No Vision Changes Ears, Nose, & Throat: No Nose Congestion, No Nose Discharge, No Epistaxis, No Mouth Pain, No Mouth Swelling, No Loose Teeth, No Throat Pain, No Throat Swelling Respiratory: No Cough, No Dyspnea Cardiac: No Chest Pain, No Palpitations, No Syncope Abdominal/Gastrointestinal: No Abdominal Pain, No Nausea, No Vomiting, No Hematemesis, No Hematochezia, No Melena Genitourinary Symptoms: No Dysuria, No Frequency, No Hematuria, No Flank Pain Musculoskeletal: No Back Pain, No Neck Pain, No Deformity Skin: No Pruritis, No Rash Neurological: No Focal Weakness, No Lethargy, No Parasthesia, No Seizure, No Speech Changes, No Tremors Psychological: No Anxiety, No Emotional Lability Endocrine: No Excessive Sweating Hematologic/Lymphatic: Easy Bruising, No Easy Bleeding All Other Systems: Reviewed and Negative - Past Medical History Pertinent Past Medical History: Yes Neurological History: No Pertinent History ENT History: Cataracts Cardiac History: Arrhythmia, Hypertension Respiratory History: No Pertinent History Endocrine Medical History: Hypothyroidism Musculoskeletal History: Fibromyalgia, Rheumatoid Arthritis GI Medical History: Diverticulosis, GERD, Other History: No Pertinent History Psycho-Social History: Anxiety Female Reproductive Disorders: No Pertinent History Other Medical History: UTI, A FIB, hiatal hernia, - Past Surgical History Past Surgical History: Yes Neuro Surgical History: No Pertinent History Cardiac: Pacemaker Respiratory: No Pertinent History Gastrointestinal: No Pertinent History Genitourinary: No Pertinent History Musculoskeletal: Other Female Surgical History: Tubal Ligation Other Surgical History: KNEE REPLACEMENT X 2,. RIGHT HIP. Cataract surgery - Social History Smoking Status: Never smoker Exposure to second hand smoke: No Alcohol Use: None Drug Use: none Patient Lives Alone: Yes Significant Family History: hypertension - Nursing Vital Signs Nursing Vital Signs: Initial Vital Signs Temperature 97.3 F 07/22/19 12:41 Pulse Rate 85 07/22/19 12:41 Respiratory Rate 16 10/23/19 12:41 Blood Pressure 193/117 07/22/19 12:41 O2 Sat by Pulse Oximetry 97 07/22/19 12:41 Pain Scale Pain Intensity 5 - Carlos Coma Score Best Eye Response (Carlos): (4) open spontaneously Best Verbal Response (Preston): (5) oriented Best Motor Response (Carlos): (6) obeys commands Preston Total: 15 - Physical Exam General Appearance: no apparent distress, alert Head Injury: contusions (right forehead), ecchymosis (right forehead), No Mcqueen 's Sign, No flap, No lacerations, No raccoon eyes, No tenderness Eye Exam: left eye: normal inspection, PERRL, EOMI ENT Exam: airway nml, nml ext.inspection, hearing grossly normal, No dental injury, No clear fluid (ears), No clear fluid (nose), No midface instability, No decreased hearing, No hemotympanum, No clotted nasal blood, No malocclusion, No oral injury Neck Exam: supple, trachea midline, full range of motion, normal alignment, normal inspection, No paraspinous muscle tender, No stiff neck, No tenderness, No meningismus, No Brudzinski, No c-collar in place Cardiovascular/Respiratory Exam: chest non-tender, normal breath sounds, heart sounds normal, no ecchymosis, no JVD, no M/R/G, no respiratory distress, irregularly irregular, No palpable fracture, No tachycardia Gastrointestinal/Abdominal Exam: soft, non tender, no distention, no mass, no guarding, normal bowel sounds, guarding, No distended, No rebound, No tenderness Back Exam: normal inspection, normal range of motion, No CVA tenderness, No vertebral tenderness, No rash Extremity Exam: normal inspection, normal capillary refill, limited range of motion (bilateral knees), No calf tenderness, No swelling Mental Status Exam: alert, oriented x 3, cooperative, No agitated vaudeville actor Exam: normal hearing, normal speech, PERRL, No abnormal speech, No facial asymmetry, No facial droop, No facial paresthesias, No facial weakness Coordination/Gait Exam: normal finger to nose Motor/Sensory Exam: no motor deficit, no sensory deficit, CN II-XII intact, No weak motor strength RUE, No weak motor strength LUE, No weak motor strength RLE , No weak motor strength LLE DTR Exam: ankle (R): 2+, ankle (L): 2+ Skin Exam: normal color, warm, dry, ecchymosis (old appearing to the left volar wrist, negative tenderness to palpation; bilateral forearms), No rash, No cyanosis SpO2 Interpretation: normal O2 Delivery: Room Air - Course Nursing assessment & vital signs reviewed: Yes - CT Exams Head CT Interpretation: No Fracture (per the radiologist's interpretation: Stable age -appropriate global atrophy and minimal periventricular degenerative ischemia bilaterally. No acute intracranial hemorrhage, abnormal extra-axial fluid question, or mass effect. Fourth ventricle is midline without hydrocephalus. Bony calvarium intact. Knee small right frontal scalp hematoma. Visualized paranasal sinuses and mastoid air cells are clear. Overall impression: Nonacute senile brain with new right frontal scalp hematoma.), No/Intracranial Hemorrhag, Other Ordered Tests: Active Orders 24 hr Category Date Time Status HEAD WITHOUT CONTRAST [CT] Stat Exams 07/22/19 12:53 Taken KNEE (3 VIEWS) Stat Exams 07/22/19 13:00 Taken KNEE (3 VIEWS) Stat Exams 07/22/19 13:44 Taken - Progress Progress: unchanged Progress Note: 07/22/19 14:46 patient's GCS is 15, and has not changed her time in the emergency department. Patient no focal neurologic deficits. patient denies any headache, dizziness, blurred vision, loss of vision, or any subjective weakness or loss of sensation. Patient denies any other complaints at this time. 07/22/19 14:[address] Thibodeaux, Hospitalist, about results of CT and patient's condition with her risk factors. We will observe the patient in the hospital at [facility] overnight with repeat CT scan of the head in 4 hours and then reconsider in the am. Neuro checks will be performed in the hospital also. 07/22/19 15:03 Patient remains hypertensive, will give 20mg of IV Labetalol times one. 07/22/19 15:03 Discussed with : Apoorva (@[id number]: spoke with Dr Thibodeaux, patient's physician and hospitalist. Due to patient being on a newer DOAC (Eliquis), we will admit the patient for observation if the CT scan is negative and repeat the CT scan in 6 hours with Neuro checks and consider repeating the CT scan in the am. If positive CT scan for hemorrhage, patient will be transferred to a facility with Neurosurgical capabilities) Will see patient in: hospital (observation) Counseled pt/family regarding: diagnosis, need for follow-up, rad results - Departure Departure Disposition: Observation ([facility] to telemetry) Clinical Impression: Bilateral knee pain, Essential (primary) hypertension, Medication induced coagulopathy Traumatic hematoma of forehead Qualifiers: Encounter type: initial encounter Qualified Code(s): S00.83XA - Contusion of other part of head, initial encounter Closed head injury without loss of consciousness Qualifiers: Encounter type: initial encounter Qualified Code(s): S09.90XA - Unspecified injury of head, initial encounter Condition: Fair Critical Care Time: Yes Critical Care Time(excluding separately billable procedures): Critical 30-74 mins Referrals: KURTIS THIBODEAUX MD [Primary Care Provider] -
[2019-07-22] MEDS ORDERED: TRANDATE 20 MG/5 ML SYRINGE IV ONE (15:02)
[2019-07-22] MEDS ORDERED: TRANDATE 100 MG/20 ML MDV FOR DRIP IV ONE (15:10)
[2019-07-22] MEDS ORDERED: Adacel Vial IM ONE ×2 (15:30→15:50)
--- NOTE | 2019-07-22 15:58 | XRAY ---
Indication: Right forehead injury/bruising following fall. Multiple contiguous axial images obtained through the head without contrast. Comparison: December 19, 2013. Stable age-appropriate global atrophy and minimal periventricular degenerative micro-ischemia bilaterally. No acute intracranial hemorrhage, abnormal extra-axial fluid collection, or mass effect. Fourth ventricle is midline without hydrocephalus. Bony calvarium intact. New small right frontal scalp hematoma. Visualized paranasal sinuses and mastoid air cells are clear. Impression: Nonacute senile brain with new right frontal scalp hematoma. CT DI 47.70
--- NOTE | 2019-07-22 16:01 | XRAY ---
Indication: Pain following fall. Comparison: None 3 views of the left knee demonstrates osteopenia, total knee arthroplasty with intact prosthesis/articulation, and heavy scattered vascular calcifications. Also faint distal quadriceps muscle/tendon calcifications presumed sequela to old injury/inflammation. No other bony, articular, or soft tissue abnormalities.
--- NOTE | 2019-07-22 16:04 | XRAY ---
Indication: Pain following fall. Comparison: None 3 views of the right knee demonstrates osteopenia, total knee arthroplasty with intact prosthesis/articulation, and heavy scattered vascular calcifications. Also faint distal quadriceps tendon calcifications presumed sequela to old injury/inflammation. No other bony, articular, or soft tissue abnormalities.
[2019-07-22 16:43] LABS: Hemoglobin 15.3 gm/dl (12.0-16.0); Mean Cell Volume 90.7 fl (78-100); Mean Corpuscular Hemoglobin 30.2 pg (26-32); Mean Corpuscular Hgb Concent. 33.3 g/dl (32-36); Mean Platelet Volume 9.6 fl (6-9.5); Platelet Count 215 K/mm3 (150-450); Red Blood Count 5.07 M/mm3 (4.1-5.4); Red Cell Distribution Width 12.9 % (11.5-14.0); White Blood Count 11.1 K/mm3 (4.0-10.5)
[2019-07-22 16:58] LABS: INR 1.64 (0.8-3.0); PROTIME 18.7 SECONDS (9.95-12.35)
[2019-07-22 17:00] LABS: ALBUMIN 4.5 g/dL (3.5-5.0); ANION GAP 16.8 MEQ/L (5-15); BILIRUBIN,TOTAL 1.1 mg/dL (0.2-1.3); Calcium 10.1 mg/dL (8.4-10.2); Creatinine 1 1.09 mg/dL (0.52-1.04); Potassium 5.1 mmol/L (3.5-5.1)
[2019-07-22] MEDS ORDERED: ANTIVERT 25 MG PO PRN (19:45)
[2019-07-22] MEDS: BENTYL 20 MG PO SCH (23:11)
[2019-07-22] MEDS: COREG 12.5 MG PO SCH (23:11)
[2019-07-22] MEDS: NEURONTIN 300 MG PO SCH (23:11)
[2019-07-22] MEDS: BACTRIM DS TABLET PO SCH (23:12)
[2019-07-22] MEDS: ELIQUIS 2.5 MG TABLET PO SCH (23:12)
[2019-07-22] MEDS: TYLENOL 325 MG PO PRN (23:13)
[2019-07-22] MEDS: Pepcid 20 MG PO SCH (23:13)
[2019-07-23] MEDS ORDERED: MEDICATION INTERVENTION MC SCH ×2 (07:30)
--- NOTE | 2019-07-23 08:25 | PCM.HP ---
History of Present Illness - Chief Complaint Chief Complaint: Closed head injury, Medication induced coagulopathy, forehead contusion,HTN History of Present Illness: is a 79 year old female who was recently released from the hospital with uti and hypotension, she was orthostatic and meds were changed. she is no longer dizzy or lightheaded but unfortunately tripped on her walker yesterday and hit her head on the door frame, she has been evaluated by home health. - Review of Systems Constitutional: Weakness, No Fever, No Chills Respiratory: No Cough, No Short Of Breath Cardiac: No Chest Pain, No Edema, No Syncope Abdominal/Gastrointestinal: No Abdominal Pain, No Nausea, No Vomiting, No Diarrhea Skin: No Rash All Other Systems: Reviewed and Negative Medications & Allergies Home Medications: Home Medication List Dicyclomine HCl [Bentyl] 10 mg PO BID 01/26/13 [History Confirmed 07/22/19] Gabapentin [Neurontin] 200 mg PO DAILY 05/06/16 [History Confirmed 07/22/19] Levothyroxine Sodium [Synthroid] 100 mcg PO DAILY 05/06/16 [History Confirmed ] Gabapentin 300 mg PO HS 05/29/17 [History Confirmed 07/22/19] Apixaban [Eliquis 2.5 mg Tablet] 2.5 mg PO BID 05/20/19 [History Confirmed ] Denosumab 60 mg [Prolia 60 mg Injection] 60 mg IM CLARIFY 05/20/19 [ History Confirmed 07/22/19] Amiodarone HCl 200 mg [Cordarone 200 MG] 200 mg PO DAILY 07/17/19 [ History Confirmed 07/22/19] Furosemide 20 mg [Lasix 20 mg] 20 mg PO DAILY 07/17/19 [History Confirmed 07/22/19] Atorvastatin Calcium 10 mg PO DAILY 07/18/19 [History Confirmed 07/22/19] Meclizine HCl 25 mg [Antivert 25 mg] 25 mg PO TID PRN PRN 07/18/19 [ History Confirmed 07/22/19] Spironolactone 25 mg [Aldactone 25 MG] 25 mg PO DAILY 07/18/19 [History Confirmed 07/22/19] Carvedilol 12.5 mg [Coreg 12.5 mg] 12.5 mg PO BID #60 tablet 07/20/19 [Rx Confirmed 07/22/19] Irbesartan 150 mg [Avapro 150 MG] 150 mg PO DAILY #30 tablet 07/20/19 [Rx Confirmed 07/22/19] Duloxetine HCl 20 mg DAILY 07/22/19 [History Confirmed 07/22/19] Melatonin 3 mg HS 07/22/19 [History Confirmed 07/22/19] Sulfamethoxazole/Trimethoprim [Bactrim Ds Tablet] 1 ea BID 07/22/19 [History Confirmed 07/22/19] Vit D3/Folic Acid/B2/B6/B12 [Folgard Tablet] 1 ea DAILY 07/22/19 [History Confirmed 07/22/19] Allergies/Adverse Reactions: Allergies Allergy/AdvReac Type Severity Reaction Status Date / Time No Known Drug Allergies Allergy Verified 07/22/19 12:58 - Past Medical History Past Medical History: Yes Neurological History: No Pertinent History ENT History: Cataracts Cardiac History: Arrhythmia, Hypertension Respiratory History: No Pertinent History Endocrine Medical History: Hypothyroidism Musculoskelatal History: Fibromyalgia, Rheumatoid Arthritis GI Medical History: Diverticulosis, GERD, Other History: No Pertinent History Pyscho-Social History: Anxiety Reproductive Disorders: No Pertinent History Comment: UTI, A FIB, hiatal hernia, - Female History Hx Last Menstrual Period: post Are you now?: No - Past Surgical History Past Surgical History: Yes Neuro Surgical History: No Pertinent History Cardiac History: Pacemaker Respiratory Surgery: No Pertinent History GI Surgical History: No Pertinent History Genitourinary Surgical Hx: No Pertinent History Musculskeletal Surgical Hx: Other Female Surgical History: Tubal Ligation Other Surgical History: KNEE REPLACEMENT X 2,. RIGHT HIP. Cataract surgery - Social History Smoking Status: Never smoker Exposure to second hand smoke: No Alcohol: None Drug Use: none Significant Family History: hypertension - Physical Exam Vital Signs: Vital Signs - 24 hr Temp Pulse Resp BP Pulse Ox 07/23/19 07:46 98 F 77 18 184/86 94 L 07/23/19 04:00 97.6 F 74 17 135/74 95 07/22/19 23:44 97.6 F 74 17 138/95 95 07/22/19 19:47 97.6 F 95 H 20 175/82 94 L 07/22/19 16:31 95 07/22/19 16:23 98.3 F 79 18 175/98 95 07/22/19 16:16 95 F 79 18 175/98 95 07/22/19 15:00 70 16 207/152 16 L 07/22/19 12:41 97.3 F 85 16 193/117 97 General Appearance: no apparent distress, alert, other (large hematoma to right frontal region) Neurologic Exam: alert, oriented x 3, cooperative, normal mood/affect, nml cerebellar function, nml station & gait, sensation nml, No motor deficits Eye Exam: PERRL/EOMI, eyes nml inspection Respiratory Exam: normal breath sounds, lungs clear, No respiratory distress Cardiovascular Exam: regular rate/rhythm, normal heart sounds, normal peripheral pulses Gastrointestinal/Abdomen Exam: soft, normal bowel sounds, No tenderness, No mass Results - Labs Lab/Micro Results: Lab Results-Last 24 Hours 07/22/19 07/22/19 07/22/19 Range/Units 16:25 16:25 16:25 WBC 11.1 H (4.0-10.5) K/mm3 RBC 5.07 (4.1-5.4) M/mm3 Hgb 15.3 (12.0-16.0) gm/dl Hct 46.0 (35-47) % MCV 90.7 (78-100) fl MCH 30.2 (26-32) pg MCHC 33.3 (32-36) g/dl RDW 12.9 (11.5-14.0) % Plt Count 215 (150-450) K/mm3 MPV 9.6 H (6-9.5) fl PT 18.7 H (9.95-12.35) SECONDS INR 1.64 (0.8-3.0) Sodium 136 L (137-145) mmol/L Potassium 5.1 (3.5-5.1) mmol/L Chloride 97 L (98-107) mmol/L Carbon Dioxide 27 (22-30) mmol/L Anion Gap 16.8 H (5-15) MEQ/L BUN 15 (7-17) mg/dL Creatinine 1.09 H (0.52-1.04) mg/dL Estimated GFR 51.6 ML/MIN Glucose 106 (74-106) mg/dL Calcium 10.1 (8.4-10.2) mg/dL Total Bilirubin 1.10 (0.2-1.3) mg/dL AST 44 H (14-36) U/L ALT 22 (0-35) U/L Alkaline Phosphatase 114 (38-126) U/L Serum Total Protein 9.0 H (6.3-8.2) g/dL Albumin 4.5 (3.5-5.0) g/dL - Radiology Impressions Radiology Exams & Impressions: Radiology Procedures Category Date Time Status HEAD WITHOUT CONTRAST [CT] Stat Exams 07/22/19 12:53 Completed HEAD WITHOUT CONTRAST [CT] Stat Exams 07/22/19 18:00 Taken KNEE (3 VIEWS) Stat Exams 07/22/19 13:00 Completed KNEE (3 VIEWS) Stat Exams 07/22/19 13:44 Completed - Other Procedures and Tests Respiratory Therapy 07/22/19 16:16 EKG PRN Assessment/Plan (1) Closed head injury without loss of consciousness Current Visit: Yes Status: Acute Qualifiers: Encounter type: initial encounter Qualified Code(s): S09.90XA - Unspecified injury of head, initial encounter Assessment & Plan: no intracranial bleed on head ct, nothing focal on neuro exam Code(s): S09.90XA - UNSPECIFIED INJURY OF HEAD, INITIAL ENCOUNTER (2) Essential (primary) hypertension Current Visit: Yes Status: Acute Code(s): I10 - ESSENTIAL (PRIMARY) HYPERTENSION (3) Weakness Current Visit: No Status: Acute Assessment & Plan: pt agrees to rehab stay now due to multiple falls and weakness Code(s): R53.1 - WEAKNESS
[2019-07-23] MEDS: SYNTHROID 100 MCG PO SCH (09:26)
[2019-07-23] MEDS: BENTYL 20 MG PO SCH ×2 (09:28→21:31)
[2019-07-23] MEDS: Neurontin 100 MG PO SCH (09:28)
[2019-07-23] MEDS: Pepcid 20 MG PO SCH ×2 (09:28→21:31)
[2019-07-23] MEDS: Cordarone 200 MG PO SCH (09:29)
[2019-07-23] MEDS: BACTRIM DS TABLET PO SCH ×2 (09:30→21:31)
[2019-07-23] MEDS: Zocor 10MG PO SCH (09:30)
[2019-07-23] MEDS: LASIX 20 MG PO SCH (09:30)
[2019-07-23] MEDS: ELIQUIS 2.5 MG TABLET PO SCH ×2 (09:30→21:31)
[2019-07-23] MEDS: Aldactone 25 MG PO SCH (09:30)
[2019-07-23] MEDS: Avapro 150 MG PO SCH (09:30)
[2019-07-23] MEDS: COREG 12.5 MG PO SCH ×2 (09:30→21:31)
[2019-07-23] MEDS: FOLTX (FOLBIC) PO SCH (09:31)
[2019-07-23] MEDS ORDERED: NON-FORMULARY ITEM (Atorvastatin Calcium [Atorvastatin Calcium] 10 MG) PO SCH (10:00)
[2019-07-23] MEDS ORDERED: VIT D3 PO SCH (10:00)
[2019-07-23] MEDS ORDERED: B2 PO SCH (10:00)
[2019-07-23] MEDS ORDERED: LEVOTHYROXINE SODIUM 100 MCG PO SCH (10:00)
[2019-07-23] MEDS ORDERED: FOLIC ACID PO SCH (10:00)
[2019-07-23] MEDS ORDERED: B12 PO SCH (10:00)
[2019-07-23] MEDS ORDERED: B6 PO SCH (10:00)
--- NOTE | 2019-07-23 10:01 | XRAY ---
Indication: Follow-up right forehead injury/bruising following fall. Anticoagulant therapy. Multiple contiguous axial images obtained through the head without contrast. Comparison: Taken earlier in the day. Stable small right frontal scalp hematoma, global atrophy, and minimal periventricular degenerative micro-ischemia. Again no acute intracranial hemorrhage, abnormal extra-axial fluid collection, or mass effect. Bony calvarium intact. Impression: Stable nonacute senile brain with small right frontal scalp hematoma. Comment: Preliminary interpretation was made by [facility]. No discrepancy. CT DI 63.61
--- NOTE | 2019-07-23 10:03 | XRAY ---
Indication: assisted rehabilitation stay. Comparison: May 29, 2019. Portable chest now demonstrates cardiomegaly with stable left dual-lead pacemaker. Enlarging moderate-sized hiatal hernia. No focal infiltrate, consolidation, or large effusion. Bony thorax again demonstrates osteopenia, degenerative changes, and old right humeral head fracture. Impression: New cardiomegaly without CHF or acute pneumonic process. Enlarging hiatal hernia.
[2019-07-23] MEDS: NEURONTIN 300 MG PO SCH (21:31)
[2019-07-23] MEDS: TYLENOL 325 MG PO PRN (21:40)
[2019-07-24 05:50] LABS: Absolute Neutrophil Ct (ANC) 4.85 (1.4-6.9); BASOPHIL % 0.2 % (0.0-0.4); Basophil (Absolute #) 0.02 (0-0.4); Eosinophil % 3.9 % (0.00-5.0); Eosinophil (Absolute #) 0.32 (0-0.5); Hematocrit 43.3 % (35-47); Hemoglobin 14.7 gm/dl (12.0-16.0); Lymphocytes % 27.7 % (24.0-44.0); Mean Cell Volume 88.5 fl (78-100); Mean Corpuscular Hemoglobin 30.1 pg (26-32); Mean Corpuscular Hgb Concent. 33.9 g/dl (32-36); Mean Platelet Volume 10.3 fl (6-9.5); Monocyte (Absolute #) 0.82 (0.0-1.3); Monocytes % 9.9 % (0.0-12.0); Neutrophil % 58.3 % (36.0-66.0); Platelet Count 201 K/mm3 (150-450); Red Blood Count 4.89 M/mm3 (4.1-5.4); Red Cell Distribution Width 12.6 % (11.5-14.0); White Blood Count 8.3 K/mm3 (4.0-10.5)
[2019-07-24 06:15] LABS: ANION GAP 15.5 MEQ/L (5-15); Calcium 9.6 mg/dL (8.4-10.2); Creatinine 1 1.27 mg/dL (0.52-1.04); Potassium 4.9 mmol/L (3.5-5.1)
--- NOTE | 2019-07-24 08:20 | PCM.NOTE ---
Date and Time: 07/24/19817 Subjective Assessment: doing well at this time, states she is feeling some better this morning. still has significant bruising on frontal region, flavio hands and arms. Objective Exam General Appearance: no apparent distress Neurologic Exam: alert, oriented x 3 Skin Exam: normal color, warm, dry, other (large ecchymosis right frontal region ) Respiratory Exam: normal breath sounds Cardiovascular Exam: regular rate/rhythm, normal heart sounds Gastrointestinal/Abdomen Exam: soft, No tenderness, No mass OBJECTIVE DATA Vital Signs: Vital Signs - 24 hr Temp Pulse Resp BP Pulse Ox 07/24/19 07:46 97.9 F 93 H 24 129/75 92 L 07/24/19 03:46 98.5 F 86 16 150/83 94 L 07/24/19 00:00 98.0 F 81 19 166/85 95 07/23/19 20:00 98.1 F 84 18 133/77 93 L 07/23/19 15:52 97.8 F 80 18 158/98 96 07/23/19 11:39 98.7 F 83 20 178/104 92 L Pain Assessment - Last Documented Pain Intensity 0 Pain Scale Used 0-10 Pain Scale,FLACC Intake and Output: Intake & Output 07/21/19 07/22/19 07/23/19 07/24/19 11:59 11:59 11:59 11:59 Intake Total 1220 1540 Balance 1220 1540 Weight 99.8 kg 97.9 kg Lab Results: Lab Results-Last 24 Hours 07/24/19 07/24/19 Range/Units 04:00 04:00 WBC 8.3 (4.0-10.5) K/mm3 RBC 4.89 (4.1-5.4) M/mm3 Hgb 14.7 (12.0-16.0) gm/dl Hct 43.3 (35-47) % MCV 88.5 (78-100) fl MCH 30.1 (26-32) pg MCHC 33.9 (32-36) g/dl RDW 12.6 (11.5-14.0) % Plt Count 201 (150-450) K/mm3 MPV 10.3 H (6-9.5) fl Gran % 58.3 (36.0-66.0) % Eos # (Auto) 0.32 (0-0.5) Absolute Lymphs (auto) 2.30 (1.0-4.6) Absolute Monos (auto) 0.82 (0.0-1.3) Lymphocytes % 27.7 (24.0-44.0) % Monocytes % 9.9 (0.0-12.0) % Eosinophils % 3.9 (0.00-5.0) % Basophils % 0.2 (0.0-0.4) % Absolute Granulocytes 4.85 (1.4-6.9) Basophils # 0.02 (0-0.4) Sodium 127 L D (137-145) mmol/L Potassium 4.9 (3.5-5.1) mmol/L Chloride 92 L (98-107) mmol/L Carbon Dioxide 24 (22-30) mmol/L Anion Gap 15.5 H (5-15) MEQ/L BUN 19 H (7-17) mg/dL Creatinine 1.27 H (0.52-1.04) mg/dL Estimated GFR 43.3 ML/MIN Glucose 109 H (74-106) mg/dL Calcium 9.6 (8.4-10.2) mg/dL Total Bilirubin 1.00 (0.2-1.3) mg/dL AST 41 H (14-36) U/L ALT 21 (0-35) U/L Alkaline Phosphatase 103 (38-126) U/L Serum Total Protein 8.0 (6.3-8.2) g/dL Albumin 4.0 (3.5-5.0) g/dL Radiology Exams: Radiology Procedures Category Date Time Status CHEST 1 VIEW (PORTABLE) Routine Exams 07/23/19 08:56 Completed HEAD WITHOUT CONTRAST [CT] Stat Exams 07/22/19 12:53 Completed HEAD WITHOUT CONTRAST [CT] Stat Exams 07/22/19 18:00 Completed KNEE (3 VIEWS) Stat Exams 07/22/19 13:00 Completed KNEE (3 VIEWS) Stat Exams 07/22/19 13:44 Completed Multi-Disciplinary Progress Notes: Multi-Disciplinary Progress Notes 07/23/19 14:04 Case Management Note by Sandy Dove CALLED TO REPORT THAT THEY WILL HAVE BED AVAIL WHEN MD READY FOR DISCHARGE. Initialized on 07/23/19 14:04 - END OF NOTE 07/23/19 11:11 Case Management Note by Sandy Dove CALL TO [facility] TO REPORT THAT PT IS HERE IN HOSPITAL, PT'S [facility] PROVIDER. ALSO, REPORTED PLAN TO TRANSITION TO REHAB ON DISCHARGE. Initialized on 07/23/19 11:11 - END OF NOTE 07/23/19 09:45 (created 07/23/19 11:10) Case Management Note by Sandy Dove PAS[facility] COMPLETE, PLACED IN CHART, FAXED COPY TO [facility] WITH REFERRAL. Initialized on 07/23/19 11:10 - END OF NOTE 07/23/19 09:05 (created 07/23/19 11:07) Case Management Note by Sandy Dove DISCHARGE PLAN REVIEWED WITH PT, REPORTS THAT NORMALLY SHE IS INDEPENDENT WITH ALL ADL'S. HOME IS SET UP HANDICAPPED EQUIPPED. HAS ALL DME AT HOME NEEDED. HAS A ROLLATOR WALKER AND A CANE THAT SHE USES PRN. REPORTS THAT SHE WAS USING HER CANE WHEN SHE FELL AT HOME. FAMILY REPORTS THAT THIS IS HER 4TH FALL IN A FEW DAYS. REPORTS THAT [facility] HAS BEEN IN TO EVALUATE AND HAD ADMITTED HER TO SERVICE. PT REPORTS THAT AFTER THIS FALL, SHE FEELS THAT SHE COULD BENEFIT FROM REHAB STAY AT [facility] ON DISCHARGE, PRIOR TO RETURN HOME WITH [facility]. REPORTS THAT DR. THIBODEAUX DISCUSSED THIS WITH HER THIS MORNING. REQUESTS REFERRAL TO [facility] FOR SHORT TERM REHAB STAY. DENIES [facility] NEEDS AT PRESENT. WILL FOLLOW. Initialized on 07/23/19 11:07 - END OF NOTE Assessment/Plan (1) Closed head injury without loss of consciousness Current Visit: Yes Status: Acute Qualifiers: Encounter type: initial encounter Qualified Code(s): S09.90XA - Unspecified injury of head, initial encounter Assessment & Plan: stable neuro checks at this time, no hemorrhage on ct Code(s): S09.90XA - UNSPECIFIED INJURY OF HEAD, INITIAL ENCOUNTER (2) Essential (primary) hypertension Current Visit: Yes Status: Acute Code(s): I10 - ESSENTIAL (PRIMARY) HYPERTENSION (3) Weakness Current Visit: No Status: Acute Code(s): R53.1 - WEAKNESS
[2019-07-24] MEDS: Zocor 10MG PO SCH (10:53)
[2019-07-24] MEDS: Neurontin 100 MG PO SCH (10:53)
[2019-07-24] MEDS: Avapro 150 MG PO SCH (10:53)
[2019-07-24] MEDS: Aldactone 25 MG PO SCH (10:53)
[2019-07-24] MEDS: Cordarone 200 MG PO SCH (10:53)
[2019-07-24] MEDS: ELIQUIS 2.5 MG TABLET PO SCH ×2 (10:53→21:20)
[2019-07-24] MEDS: SYNTHROID 100 MCG PO SCH (10:54)
[2019-07-24] MEDS: COREG 12.5 MG PO SCH ×2 (10:54→21:21)
[2019-07-24] MEDS: BACTRIM DS TABLET PO SCH ×2 (10:54→21:22)
[2019-07-24] MEDS: Pepcid 20 MG PO SCH ×2 (10:54→21:21)
[2019-07-24] MEDS: BENTYL 20 MG PO SCH ×2 (10:54→21:19)
[2019-07-24] MEDS: LASIX 20 MG PO SCH (10:54)
[2019-07-24] MEDS: FOLTX (FOLBIC) PO SCH (10:55)
[2019-07-24] MEDS ORDERED: Sodium Chloride 0.9% 10 ML FLUSH Syringe IV PRN (21:10)
[2019-07-24] MEDS: TYLENOL 325 MG PO PRN (21:19)
[2019-07-24] MEDS: NEURONTIN 300 MG PO SCH (21:21)
[2019-07-24] MEDS: Sodium Chloride 0.9% 10 ML FLUSH Syringe IV SCH (21:23)
[2019-07-25] MEDS: Sodium Chloride 0.9% 10 ML FLUSH Syringe IV SCH ×3 (06:23→12:19)
[2019-07-25 06:42] LABS: Absolute Neutrophil Ct (ANC) 6.54 (1.4-6.9); BASOPHIL % 0.2 % (0.0-0.4); Basophil (Absolute #) 0.02 (0-0.4); Eosinophil % 2.3 % (0.00-5.0); Eosinophil (Absolute #) 0.23 (0-0.5); Hematocrit 42.2 % (35-47); Hemoglobin 14.5 gm/dl (12.0-16.0); Lymphocyte (Absolute #) 2.15 (1.0-4.6); Lymphocytes % 21.6 % (24.0-44.0); Mean Cell Volume 87.7 fl (78-100); Mean Corpuscular Hemoglobin 30.1 pg (26-32); Mean Corpuscular Hgb Concent. 34.4 g/dl (32-36); Mean Platelet Volume 9.5 fl (6-9.5); Monocyte (Absolute #) 1.01 (0.0-1.3); Monocytes % 10.2 % (0.0-12.0); Neutrophil % 65.7 % (36.0-66.0); Platelet Count 199 K/mm3 (150-450); Red Blood Count 4.81 M/mm3 (4.1-5.4); Red Cell Distribution Width 12.6 % (11.5-14.0)
[2019-07-25 06:57] LABS: ANION GAP 18.6 MEQ/L (5-15); Calcium 9.3 mg/dL (8.4-10.2); Creatinine 1 1.64 mg/dL (0.52-1.04)
[2019-07-25] MEDS: Avapro 150 MG PO SCH (09:17)
[2019-07-25] MEDS: LASIX 20 MG PO SCH (09:18)
[2019-07-25] MEDS: Neurontin 100 MG PO SCH (09:18)
[2019-07-25] MEDS: COREG 12.5 MG PO SCH ×2 (09:18→21:19)
[2019-07-25] MEDS: FOLTX (FOLBIC) PO SCH (09:18)
[2019-07-25] MEDS: ELIQUIS 2.5 MG TABLET PO SCH ×2 (09:18→21:19)
[2019-07-25] MEDS: BENTYL 20 MG PO SCH ×2 (09:18→18:01)
[2019-07-25] MEDS: Aldactone 25 MG PO SCH (09:18)
[2019-07-25] MEDS: SYNTHROID 100 MCG PO SCH (09:18)
[2019-07-25] MEDS: Cordarone 200 MG PO SCH (09:18)
[2019-07-25] MEDS: Zocor 10MG PO SCH (09:18)
[2019-07-25] MEDS: Pepcid 20 MG PO SCH ×2 (09:18→21:19)
[2019-07-25] MEDS: NON-FORMULARY ITEM PO SCH ×4 (09:19→21:18)
[2019-07-25] MEDS ORDERED: FLUZONE HIGH-DOSE 2019-20 SYR IM ONE (10:00)
--- NOTE | 2019-07-25 10:38 | PCM.NOTE ---
Date and Time: 07/25/19 1033 Subjective Assessment: 79 yr old female seen and examined this am. Patient reports that she is doing better this am. She reports R side of her face feels tight. She reports left wrist pain from her recent fall. She states she only noticed the pain today. Patient had not other reported complaints this am. - Review of Systems Constitutional: No Symptoms Eyes: No Vision Changes, No Double Vision Ears, Nose, & Throat: No Nose Congestion, No Nose Discharge, No Sinus Drainage Respiratory: No Cough, No Short Of Breath, No Wheezing Cardiac: No Chest Pain, No Edema Abdominal/Gastrointestinal: No Abdominal Pain, No Nausea, No Vomiting, No Diarrhea, No Appetite Changes Genitourinary Symptoms: No Dysuria, No Frequency Musculoskeletal: Other (L wrist pain bilateral knee pain) Skin: No Cellulitis Neurological: No Dizziness Psychological: No Symptoms Hematologic/Lymphatic: Easy Bleeding Objective Exam General Appearance: no apparent distress Neurologic Exam: alert, oriented x 3, cooperative, 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, normal mood/affect Skin Exam: normal color, ecchymosis (Patient has diffuse ecchymosis on knees bilaterally, left wrist and right face) Eye Exam: PERRL, EOMI, eyes nml inspection Ears, Nose, Throat Exam: moist mucous membranes Neck Exam: normal inspection Respiratory Exam: normal breath sounds, lungs clear, No chest tenderness, No respiratory distress, No crackles/rales, No rhonchi, No wheezing Cardiovascular Exam: normal heart sounds, No regular rate/rhythm (Hx of pacemaker irregularly irregular rhythm), No murmur Gastrointestinal/Abdomen Exam: soft, normal bowel sounds, No tenderness, No distention Extremity Exam: other (Bruising and tenderness with palpation on knees bilaterally. Bruising and tenderness left wrist. Bruising on r [place]) OBJECTIVE DATA Vital Signs: Vital Signs - 24 hr Temp Pulse Resp BP Pulse Ox 07/25/19 07:45 98.0 F 75 18 127/60 90 L 07/25/19 04:14 98.3 F 82 20 118/71 92 L 07/25/19 00:16 98.4 F 79 18 149/81 94 L 07/24/19 20:00 98.5 F 76 18 134/75 93 L 07/24/19 16:00 97.7 F 75 18 143/67 95 07/24/19 12:00 98.3 F 76 20 104/65 92 L Pain Assessment - Last Documented Pain Intensity 6 Pain Scale Used 0-10 Pain Scale Intake and Output: Intake & Output 07/22/19 07/23/19 07/24/19 07/25/19 11:59 11:59 11:59 11:59 Intake Total 1220 1540 1520 Output Total 1999 Balance 1220 1540 -480 Weight 99.8 kg 97.9 kg 98.1 kg Lab Results: Lab Results-Last 24 Hours 07/25/19 07/25/19 Range/Units 06:10 06:10 WBC 10.0 (4.0-10.5) K/mm3 RBC 4.81 (4.1-5.4) M/mm3 Hgb 14.5 (12.0-16.0) gm/dl Hct 42.2 (35-47) % MCV 87.7 (78-100) fl MCH 30.1 (26-32) pg MCHC 34.4 (32-36) g/dl RDW 12.6 (11.5-14.0) % Plt Count 199 (150-450) K/mm3 MPV 9.5 (6-9.5) fl Gran % 65.7 (36.0-66.0) % Eos # (Auto) 0.23 (0-0.5) Absolute Lymphs (auto) 2.15 (1.0-4.6) Absolute Monos (auto) 1.01 (0.0-1.3) Lymphocytes % 21.6 L (24.0-44.0) % Monocytes % 10.2 (0.0-12.0) % Eosinophils % 2.3 (0.00-5.0) % Basophils % 0.2 (0.0-0.4) % Absolute Granulocytes 6.54 (1.4-6.9) Basophils # 0.02 (0-0.4) Sodium 125 L (137-145) mmol/L Potassium 5.0 (3.5-5.1) mmol/L Chloride 89 L (98-107) mmol/L Carbon Dioxide 23 (22-30) mmol/L Anion Gap 18.6 H (5-15) MEQ/L BUN 25 H (7-17) mg/dL Creatinine 1.64 H (0.52-1.04) mg/dL Estimated GFR 32.2 ML/MIN Glucose 113 H (74-106) mg/dL Calcium 9.3 (8.4-10.2) mg/dL Radiology Exams: Radiology Procedures Category Date Time Status WRIST (MIN 3 VIEWS) Stat Exams 07/25/19 Ordered Assessment/Plan (1) Traumatic hematoma of forehead Current Visit: Yes Status: Acute Qualifiers: Encounter type: initial encounter Qualified Code(s): S00.83XA - Contusion of other part of head, initial encounter Assessment & Plan: Patient reports recent mechanical fall. Patient reports that she if doing better. She denies any syncope prior to fall. Patient reports that her face on R side still feels swollen/tight. Will continue to monitor for signs of bleeding. Will continue to monitor for any AMS. Plan for patient to go to [place] due to recent hx of freq falls. Code(s): S00.83XA - CONTUSION OF OTHER PART OF HEAD, INITIAL ENCOUNTER (2) Essential (primary) hypertension Current Visit: Yes Status: Acute Assessment & Plan: Hx of hypertension. Will continue to monitor and resume her home meds. BP appears to well controlled at this time. Code(s): I10 - ESSENTIAL (PRIMARY) HYPERTENSION (3) Hyponatremia Current Visit: No Status: Acute Assessment & Plan: Patient was found to be hyponatremic. She has been trending down with her Na. Unsure etiology. Will start patient on sodium tablets and get repeat bmp in am. If still trending down will need to do workup for hyponatremia. Code(s): E87.1 - HYPO-OSMOLALITY AND HYPONATREMIA (4) Wrist pain Current Visit: Yes Status: Acute Assessment & Plan: Patient reports new onset of L wrist pain. Will get L wrist xrays to eval for fx. Code(s): M25.539 - PAIN IN UNSPECIFIED WRIST
--- NOTE | 2019-07-25 19:20 | XRAY ---
Indication: Pain and bruising following fall July 22, 2019. 3 views of the left wrist demonstrates osteopenia, mild radiocarpal joint space narrowing, and moderate degenerative changes of the 1st metacarpal multangular scaphoid articulation. No other bony, articular, or soft tissue abnormalities. Comment: Preliminary interpretation was made by [facility]. No discrepancy.
[2019-07-25] MEDS: NEURONTIN 300 MG PO SCH (21:19)
--- NOTE | 2019-07-26 08:23 | PCM.DS ---
Discharge Summary Date of Admission: 07/23/19 08:21 Date of Discharge: 07/26/2019 Admitting Physician: KURTIS THIBODEAUX Primary Care Provider: KURTIS THIBODEAUX Allergies Allergies No Known Drug Allergies Allergy (Verified 07/22/19 12:58) Hospital Summary - Hospital Course Hospital Course: is a 79 year old female who was recently released from the hospital with uti and hypotension, she was orthostatic and meds were changed. she is no longer dizzy or lightheaded but unfortunately hit her head on the door frame. Patient was walking using her four prong walker. Patient tripped over the prong , falling forward and hitting her right forehead against the door frame. Patient also landed on her knees, causing mild pain. Patient has swelling to her right forehead. Patient was admitted to inpatient unit at hospital. CT imaging was neg for head bleed. She had neuro checks performed and appeared to be improving. Patient had no focal deficits during hospital course. During hospital stay patient started having L wrist pain she thinks was from her fall. Xrays were done and were neg. Patient also developed hyponatremia. She was started on salt tablets and has had repeat BMPs. Patient will need to have these follow up at [facility] as well. Patient has hx of falls and will likely need PT at [facility] for reconditioning. - Vitals & Intake/Output Vital Signs: Vital Signs Temperature 97.8 F 07/26/19 07:21 Pulse Rate 74 07/26/19 07:21 Respiratory Rate 20 07/26/19 07:21 Blood Pressure 130/61 07/26/19 07:21 O2 Sat by Pulse Oximetry 97 07/26/19 07:21 Intake & Output: Intake & Output 07/23/19 07/24/19 07/25/19 07/26/19 11:59 11:59 11:59 11:59 Intake Total 1220 1540 1760 900 Output Total 2600 1850 Balance 1220 1540 -840 -950 Weight 99.8 kg 97.9 kg 98.1 kg 98.2 kg - Lab Result Diagrams: 07/26/19 08:30 07/25/19 06:10 - Radiology Exams Ordered Rad Exams-Entire Visit: Radiology Procedures Category Date Time Status WRIST (MIN 3 VIEWS) Stat Exams 07/25/19 12:11 Completed - Procedures and Test Procedures and Tests throughout Hospitalization: Therapy Orders & Screens 07/22/19 16:16 PT Eval & Treat (MD Order) ROUTINE Reason for Eval:: recurrent falls Diagnosis: Closed Head Injury, Recurrent Falls EKG PRN Comment: Discharge Exam General Appearance: no apparent distress Neurologic Exam: alert, oriented x 3, normal mood/affect, other (Facial ecchymosis.), No facial droop Eye Exam: eyes nml inspection, No scleral icterus Ears, Nose, Throat Exam: moist mucous membranes Neck Exam: normal inspection Respiratory Exam: normal breath sounds, lungs clear, No crackles/rales, No rhonchi, No wheezing Cardiovascular Exam: normal heart sounds, other (irregularly irregular rhythm), No murmur Gastrointestinal/Abdomen Exam: soft, normal bowel sounds, No tenderness Pelvic Exam: deferred Rectal Exam: deferred Extremity Exam: other (Bilateral knee ecchymosis. Tenderness with palpation over R knee. L wrist ecchymosis and tender with palpation improved from yesterday) Skin Exam: normal color, other (Ecchymosis of R forehead and lower periorbital region.) Final Diagnosis/Problem List - Final Discharge Diagnosis/Problem (1) Traumatic hematoma of forehead Current Visit: Yes Status: Acute Assessment & Plan: Healing well. Patient has normal neuro checks and good mentation while in hospital. Plan for DC to [place] for reconditioning. Code(s): S00.83XA - CONTUSION OF OTHER PART OF HEAD, INITIAL ENCOUNTER (2) Essential (primary) hypertension Current Visit: Yes Status: Acute Assessment & Plan: Well controlled in hospital. Will continue on routine bp meds Code(s): I10 - ESSENTIAL (PRIMARY) HYPERTENSION (3) Hyponatremia Current Visit: No Status: Acute Assessment & Plan: Patient has been hyponatremic. Patient was started on salt tablets yesterday. Will follow up on BMP. Patient will likely need to continue with salt tablets and repeat bmp for the next couple of days. Code(s): E87.1 - HYPO-OSMOLALITY AND HYPONATREMIA (4) Wrist pain Current Visit: Yes Status: Acute Assessment & Plan: Xray obtained yesterday was neg for fx. Patient reports it is much better today with mild tenderness Code(s): M25.539 - PAIN IN UNSPECIFIED WRIST - Discharge Disposition: Skilled Care @ [facility] Condition: Fair Prescriptions: New Famotidine 20 mg [Pepcid 20 MG] 20 mg PO BID tablet Continue Dicyclomine HCl [Bentyl] 10 mg PO BID Levothyroxine Sodium [Synthroid] 100 mcg PO DAILY Gabapentin [Neurontin] 200 mg PO DAILY Gabapentin 300 mg PO HS Denosumab 60 mg [Prolia 60 mg Injection] 60 mg IM CLARIFY Apixaban [Eliquis 2.5 mg Tablet] 2.5 mg PO BID Furosemide 20 mg [Lasix 20 mg] 20 mg PO DAILY Amiodarone HCl 200 mg [Cordarone 200 MG] 200 mg PO DAILY Atorvastatin Calcium 10 mg PO DAILY Meclizine HCl 25 mg [Antivert 25 mg] 25 mg PO TID PRN PRN PRN Reason: Dizziness Spironolactone 25 mg [Aldactone 25 MG] 25 mg PO DAILY Irbesartan 150 mg [Avapro 150 MG] 150 mg PO DAILY #30 tablet Carvedilol 12.5 mg [Coreg 12.5 mg] 12.5 mg PO BID #60 tablet Vit D3/Folic Acid/B2/B6/B12 [Folgard Tablet] 1 ea DAILY Melatonin 3 mg HS Duloxetine HCl 20 mg DAILY Discontinued Sulfamethoxazole/Trimethoprim [Bactrim Ds Tablet] 1 ea BID Additional Instructions: Patient will need repeat BMPs to check sodium levels. Patient will likely need to be on salt tablets for a few days at [place]. Patient will need PT and OT as well Follow up with: KURTIS THIBODEAUX MD [Primary Care Provider] - 1 Week
[2019-07-26 08:38] LABS: Absolute Neutrophil Ct (ANC) 5.11 (1.4-6.9); BASOPHIL % 0.1 % (0.0-0.4); Basophil (Absolute #) 0.01 (0-0.4); Eosinophil % 1.5 % (0.00-5.0); Eosinophil (Absolute #) 0.12 (0-0.5); Hematocrit 42.1 % (35-47); Hemoglobin 14.3 gm/dl (12.0-16.0); Lymphocyte (Absolute #) 1.65 (1.0-4.6); Lymphocytes % 21.1 % (24.0-44.0); Mean Cell Volume 88.3 fl (78-100); Mean Platelet Volume 9.4 fl (6-9.5); Monocyte (Absolute #) 0.92 (0.0-1.3); Monocytes % 11.8 % (0.0-12.0); Neutrophil % 65.5 % (36.0-66.0); Platelet Count 170 K/mm3 (150-450); Red Blood Count 4.77 M/mm3 (4.1-5.4); Red Cell Distribution Width 12.7 % (11.5-14.0); White Blood Count 7.8 K/mm3 (4.0-10.5)
--- NOTE | 2019-07-26 08:49 | PCM.NOTE ---
Date and Time: 07/26/19 0844 Subjective Assessment: 79 yr old female seen and examined the am. Patient reports that she still has some chest discomfort and reports some fluttering sensation of her heart. Patient has loop recorder and is scheduled to have watchmen procedure done in 3 weeks. Patient reports some wheezing and she has continued with her breathing treatments. Patient reports headaches. No other reported concerns. - Review of Systems Constitutional: No Fever Eyes: No Vision Changes Respiratory: Wheezing, No Cough, No Short Of Breath Cardiac: Chest Pain, Palpitations, No Edema Abdominal/Gastrointestinal: No Abdominal Pain Objective Exam General Appearance: mild distress Neurologic Exam: alert, oriented x 3, normal mood/affect Skin Exam: warm, dry, pale Eye Exam: eyes nml inspection Ears, Nose, Throat Exam: moist mucous membranes Neck Exam: normal inspection Respiratory Exam: other (Expiratory wheezes) Cardiovascular Exam: other (irregularly irregular rhythm), No murmur Gastrointestinal/Abdomen Exam: soft, normal bowel sounds, No tenderness Extremity Exam: normal inspection Back Exam: normal inspection OBJECTIVE DATA Vital Signs: Vital Signs - 24 hr Temp Pulse Resp BP Pulse Ox 07/26/19 07:21 97.8 F 74 20 130/61 97 07/26/19 04:00 98.1 F 83 16 101/55 95 07/25/19 23:41 98.2 F 73 18 127/62 94 L 07/25/19 20:00 98.3 F 72 18 117/64 96 07/25/19 16:00 98.7 F 70 18 86/48 95 07/25/19 12:00 98.4 F 76 18 113/55 94 L Pain Assessment - Last Documented Pain Intensity 0 Pain Scale Used 0-10 Pain Scale Intake and Output: Intake & Output 07/23/19 07/24/19 07/25/19 07/26/19 11:59 11:59 11:59 11:59 Intake Total 1220 1540 1760 900 Output Total 2600 1850 Balance 1220 1540 -840 -950 Weight 99.8 kg 97.9 kg 98.1 kg 98.2 kg Lab Results: Lab Results-Last 24 Hours 07/26/19 Range/Units 08:30 WBC 7.8 (4.0-10.5) K/mm3 RBC 4.77 (4.1-5.4) M/mm3 Hgb 14.3 (12.0-16.0) gm/dl Hct 42.1 (35-47) % MCV 88.3 (78-100) fl MCH 30.0 (26-32) pg MCHC 34.0 (32-36) g/dl RDW 12.7 (11.5-14.0) % Plt Count 170 (150-450) K/mm3 MPV 9.4 (6-9.5) fl Gran % 65.5 (36.0-66.0) % Eos # (Auto) 0.12 (0-0.5) Absolute Lymphs (auto) 1.65 (1.0-4.6) Absolute Monos (auto) 0.92 (0.0-1.3) Lymphocytes % 21.1 L (24.0-44.0) % Monocytes % 11.8 (0.0-12.0) % Eosinophils % 1.5 (0.00-5.0) % Basophils % 0.1 (0.0-0.4) % Absolute Granulocytes 5.11 (1.4-6.9) Basophils # 0.01 (0-0.4) Radiology Exams: Radiology Procedures Category Date Time Status WRIST (MIN 3 VIEWS) Stat Exams 07/25/19 12:11 Completed Assessment/Plan (1) Traumatic hematoma of forehead Current Visit: Yes Status: Acute Qualifiers: Encounter type: initial encounter Qualified Code(s): S00.83XA - Contusion of other part of head, initial encounter Code(s): S00.83XA - CONTUSION OF OTHER PART OF HEAD, INITIAL ENCOUNTER (2) Essential (primary) hypertension Current Visit: Yes Status: Acute Code(s): I10 - ESSENTIAL (PRIMARY) HYPERTENSION (3) Hyponatremia Current Visit: No Status: Acute Code(s): E87.1 - HYPO-OSMOLALITY AND HYPONATREMIA (4) Wrist pain Current Visit: Yes Status: Acute Code(s): M25.539 - PAIN IN UNSPECIFIED WRIST
[2019-07-26] MEDS: Avapro 150 MG PO SCH (12:04)
[2019-07-26] MEDS: Pepcid 20 MG PO SCH ×2 (12:05→20:41)
[2019-07-26] MEDS: BENTYL 20 MG PO SCH ×2 (12:05→20:40)
[2019-07-26] MEDS: LASIX 20 MG PO SCH (12:05)
[2019-07-26] MEDS: Aldactone 25 MG PO SCH (12:05)
[2019-07-26] MEDS: Zocor 10MG PO SCH (12:05)
[2019-07-26] MEDS: ELIQUIS 2.5 MG TABLET PO SCH ×2 (12:05→20:41)
[2019-07-26] MEDS: SYNTHROID 100 MCG PO SCH (12:06)
[2019-07-26] MEDS: Cordarone 200 MG PO SCH (12:06)
[2019-07-26] MEDS: Neurontin 100 MG PO SCH (12:06)
[2019-07-26] MEDS: FOLTX (FOLBIC) PO SCH (12:06)
[2019-07-26] MEDS: COREG 12.5 MG PO SCH ×2 (12:07→20:41)
[2019-07-26 13:31] LABS: ANION GAP 17.1 MEQ/L (5-15); Calcium 9.2 mg/dL (8.4-10.2); Creatinine 1 1.93 mg/dL (0.52-1.04); Potassium 4.9 mmol/L (3.5-5.1)
[2019-07-26] MEDS ORDERED: Sodium Chloride 0.9% 500 ML 500 ML IV ONE (13:59)
[2019-07-26] MEDS ORDERED: NON-FORMULARY ITEM PO ONE (14:00)
[2019-07-26 17:38] LABS: ANION GAP 16.6 MEQ/L (5-15); Calcium 9.2 mg/dL (8.4-10.2); Creatinine 1 2.08 mg/dL (0.52-1.04)
[2019-07-26] MEDS ORDERED: Sodium Chloride 0.9% 1000 ML 1,000 ML IV SCH (18:45)
[2019-07-26] MEDS: NEURONTIN 300 MG PO SCH (20:40)
[2019-07-27 05:39] LABS: ANION GAP 15.3 MEQ/L (5-15); Creatinine 1 1.95 mg/dL (0.52-1.04); Potassium 5.1 mmol/L (3.5-5.1)
--- NOTE | 2019-07-27 08:30 | PCM.DS ---
Discharge Summary Date of Admission: 07/23/19 08:21 Admitting Physician: KURTIS THIBODEAUX Primary Care Provider: KURTIS THIBODEAUX Allergies Allergies No Known Drug Allergies Allergy (Verified 07/22/19 12:58) Hospital Summary - Hospital Course Hospital Course: patient was admitted with closed head injury, on eliquis with a recent fall. doing well at this time, will go for rehab stay due to weakness and recurrent falls, had increase in bun/cr but improving and trending down now - Vitals & Intake/Output Vital Signs: Vital Signs Temperature 98.0 F 07/27/19 08:00 Pulse Rate 68 07/27/19 08:00 Respiratory Rate 18 07/27/19 08:00 Blood Pressure 126/67 07/27/19 08:00 O2 Sat by Pulse Oximetry 94 L 07/27/19 08:00 Intake & Output: Intake & Output 07/24/19 07/25/19 07/26/19 07/27/19 11:59 11:59 11:59 11:59 Intake Total 1540 1760 1260 3407 Output Total 2600 2050 5150 Balance 1540 -840 -790 -1743 Weight 97.9 kg 98.1 kg 98.2 kg 97 kg - Lab Result Diagrams: 07/26/19 08:30 07/27/19 04:30 Lab Results-Last 24 Hrs: Lab Results-Last 24 Hours 07/26/19 07/26/19 07/26/19 Range/Units 08:00 08:30 17:29 WBC 7.8 (4.0-10.5) K/mm3 RBC 4.77 (4.1-5.4) M/mm3 Hgb 14.3 (12.0-16.0) gm/dl Hct 42.1 (35-47) % MCV 88.3 (78-100) fl MCH 30.0 (26-32) pg MCHC 34.0 (32-36) g/dl RDW 12.7 (11.5-14.0) % Plt Count 170 (150-450) K/mm3 MPV 9.4 (6-9.5) fl Gran % 65.5 (36.0-66.0) % Eos # (Auto) 0.12 (0-0.5) Absolute Lymphs (auto) 1.65 (1.0-4.6) Absolute Monos (auto) 0.92 (0.0-1.3) Lymphocytes % 21.1 L (24.0-44.0) % Monocytes % 11.8 (0.0-12.0) % Eosinophils % 1.5 (0.00-5.0) % Basophils % 0.1 (0.0-0.4) % Absolute Granulocytes 5.11 (1.4-6.9) Basophils # 0.01 (0-0.4) Sodium 128 L 131 L (137-145) mmol/L Potassium 4.9 5.0 (3.5-5.1) mmol/L Chloride 94 L 94 L (98-107) mmol/L Carbon Dioxide 22 25 (22-30) mmol/L Anion Gap 17.1 H 16.6 H (5-15) MEQ/L BUN 31 H 37 H (7-17) mg/dL Creatinine 1.93 H 2.08 H (0.52-1.04) mg/dL Estimated GFR 26.7 24.5 ML/MIN Glucose 107 H 101 (74-106) mg/dL Calcium 9.2 9.2 (8.4-10.2) mg/dL Creatine Kinase (30-135) U/L 07/26/19 07/27/19 Range/Units 21:00 04:30 WBC (4.0-10.5) K/mm3 RBC (4.1-5.4) M/mm3 Hgb (12.0-16.0) gm/dl Hct (35-47) % MCV (78-100) fl MCH (26-32) pg MCHC (32-36) g/dl RDW (11.5-14.0) % Plt Count (150-450) K/mm3 MPV (6-9.5) fl Gran % (36.0-66.0) % Eos # (Auto) (0-0.5) Absolute Lymphs (auto) (1.0-4.6) Absolute Monos (auto) (0.0-1.3) Lymphocytes % (24.0-44.0) % Monocytes % (0.0-12.0) % Eosinophils % (0.00-5.0) % Basophils % (0.0-0.4) % Absolute Granulocytes (1.4-6.9) Basophils # (0-0.4) Sodium 132 L (137-145) mmol/L Potassium 5.1 (3.5-5.1) mmol/L Chloride 98 (98-107) mmol/L Carbon Dioxide 24 (22-30) mmol/L Anion Gap 15.3 H (5-15) MEQ/L BUN 36 H (7-17) mg/dL Creatinine 1.95 H (0.52-1.04) mg/dL Estimated GFR 26.4 ML/MIN Glucose 106 (74-106) mg/dL Calcium 9.0 (8.4-10.2) mg/dL Creatine Kinase 29 L (30-135) U/L - Radiology Exams Ordered Rad Exams-Entire Visit: Radiology Procedures Category Date Time Status WRIST (MIN 3 VIEWS) Stat Exams 07/25/19 12:11 Completed - Procedures and Test Procedures and Tests throughout Hospitalization: Therapy Orders & Screens 07/22/19 16:16 PT Eval & Treat ( Order) ROUTINE Reason for Eval:: recurrent falls Diagnosis: Closed Head Injury, Recurrent Falls EKG PRN Comment: Discharge Exam General Appearance: no apparent distress, alert, other (bruising to right frontal region and right periorbital area) Respiratory Exam: normal breath sounds, lungs clear, No respiratory distress Cardiovascular Exam: regular rate/rhythm, normal heart sounds Gastrointestinal/Abdomen Exam: soft, No tenderness, No mass Final Diagnosis/Problem List - Final Discharge Diagnosis/Problem (1) Closed head injury without loss of consciousness Current Visit: Yes Status: Acute Code(s): S09.90XA - UNSPECIFIED INJURY OF HEAD, INITIAL ENCOUNTER (2) Essential (primary) hypertension Current Visit: Yes Status: Acute Code(s): I10 - ESSENTIAL (PRIMARY) HYPERTENSION (3) Weakness Current Visit: No Status: Acute Code(s): R53.1 - WEAKNESS (4) ELIZABETH (acute kidney injury) Current Visit: Yes Status: Acute Code(s): N17.9 - ACUTE KIDNEY FAILURE, UNSPECIFIED - Discharge Disposition: Skilled Care @ [facility] Condition: Fair Prescriptions: New Famotidine 20 mg [Pepcid 20 MG] 20 mg PO BID tablet Continue Dicyclomine HCl [Bentyl] 10 mg PO BID Levothyroxine Sodium [Synthroid] 100 mcg PO DAILY Gabapentin [Neurontin] 200 mg PO DAILY Gabapentin 300 mg PO HS Denosumab 60 mg [Prolia 60 mg Injection] 60 mg IM CLARIFY Apixaban [Eliquis 2.5 mg Tablet] 2.5 mg PO BID Furosemide 20 mg [Lasix 20 mg] 20 mg PO DAILY Amiodarone HCl 200 mg [Cordarone 200 MG] 200 mg PO DAILY Atorvastatin Calcium 10 mg PO DAILY Meclizine HCl 25 mg [Antivert 25 mg] 25 mg PO TID PRN PRN PRN Reason: Dizziness Spironolactone 25 mg [Aldactone 25 MG] 25 mg PO DAILY Irbesartan 150 mg [Avapro 150 MG] 150 mg PO DAILY #30 tablet Carvedilol 12.5 mg [Coreg 12.5 mg] 12.5 mg PO BID #60 tablet Vit D3/Folic Acid/B2/B6/B12 [Folgard Tablet] 1 ea DAILY Melatonin 3 mg HS Duloxetine HCl 20 mg DAILY Discontinued Sulfamethoxazole/Trimethoprim [Bactrim Ds Tablet] 1 ea BID Additional Instructions: check bmp in 1 week. Follow up with: KURTIS THIBODEAUX MD [Primary Care Provider] - 1 Week
[2019-07-27] MEDS: BENTYL 20 MG PO SCH (09:14)
[2019-07-27] MEDS: ELIQUIS 2.5 MG TABLET PO SCH (09:16)
[2019-07-27] MEDS: Cordarone 200 MG PO SCH (09:16)
[2019-07-27] MEDS: COREG 12.5 MG PO SCH (09:16)
[2019-07-27] MEDS: FOLTX (FOLBIC) PO SCH (09:16)
[2019-07-27] MEDS: Neurontin 100 MG PO SCH (09:16)
[2019-07-27] MEDS: Zocor 10MG PO SCH (09:17)
[2019-07-27] MEDS: Pepcid 20 MG PO SCH (09:17)
[2019-07-27] MEDS: SYNTHROID 100 MCG PO SCH (09:17)
[2019-07-27 13:39] VITALS: BP 102/45; PULSE 84; O2SAT 92
== END 2019-07-27 15:30 | DRG 914 ==
LOC: ED 12:39 → MED SURG 16:07 → OBSVTOIN 07-23 08:21
PROVIDERS: ADMIT Family Medicine; ATTEND Family Medicine
DX: S09.90XA Unspecified injury of head, initial encounter (principal); N39.0 Urinary tract infection, site not specified; E87.1 Hypo-osmolality and hyponatremia; N17.9 Acute kidney failure, unspecified; D68.8 Other specified coagulation defects; I95.9 Hypotension, unspecified; R42 Dizziness and giddiness; R53.1 Weakness; I10 Essential (primary) hypertension; W01.198A Fall on same level from slipping, tripping and stumbling with subsequent striking against other object, initial encounter; M25.562 Pain in left knee; M25.561 Pain in right knee; R22.0 Localized swelling, mass and lump, head; I48.91 Unspecified atrial fibrillation; M25.532 Pain in left wrist; Z79.01 Long term (current) use of anticoagulants; Z79.899 Other long term (current) drug therapy; E03.9 Hypothyroidism, unspecified; M06.9 Rheumatoid arthritis, unspecified; M79.7 Fibromyalgia; K44.9 Diaphragmatic hernia without obstruction or gangrene
CPT/HCPCS: 36415; 70450; 71045; 73110; 73562; 80048; 80053; 82550; 85025; 85027; 85610; 90471; 93005; 94760; 96374; 97110; 97162; 99291; G0378; 36000; 90662; 90715; 99285; A9270-GY

== ENCOUNTER 2019-10-22 16:04 | Observation (INO) | payer MEDICARE ==
[2019-10-22] MEDS ORDERED: Sodium Chloride 0.9% 1000 ML 1,000 ML IV STA (16:35)
[2019-10-22] MEDS ORDERED: BENADRYL 50 MG/ML IV ONE (16:36)
[2019-10-22] MEDS ORDERED: Reglan 10 MG/2 ML IV ONE (16:37)
[2019-10-22] MEDS ORDERED: BENADRYL 50 MG/ML ONE (17:56)
[2019-10-22] MEDS ORDERED: Reglan 10 MG/2 ML ONE (17:57)
[2019-10-22] MEDS ORDERED: Sodium Chloride 0.9% 1000 ML 1,000 ML ONE (17:57)
--- NOTE | 2019-10-22 18:23 | ERPHSYRPT ---
- History of Present Illness Time Seen by Provider: 10/22/19 16:08 Patient Subjective Stated Complaint: Dizziness Triage Nursing Assessment: Patient brought back to ED via w/c and transferred to bed with assist of 1. Patient A+O X3. Patient's skin pink, warm and dry. Patient complains of dizziness and weakness for two weeks. Patient's lungs clear a/p flavio. Patient states she isn't able to stand up and do tasks without having to sit down. Physician History: Location: generalized malaise Quality: weakness Radiation: none Severity: moderate Duration: 2 weeks Timing: gradual Modifying factors/associated signs and symptoms: home OTC, called Dr. Thibodeaux and sent in here. Timing/Duration: week(s) Severity: mild Allergies/Adverse Reactions: No Known Drug Allergies Allergy (Verified 07/22/19 12:58) Home Medications: Dicyclomine HCl [Bentyl] 10 mg PO BID 01/26/13 [History] Gabapentin [Neurontin] 200 mg PO DAILY 05/06/16 [History] Levothyroxine Sodium [Synthroid] 100 mcg PO DAILY 05/06/16 [History] Gabapentin 300 mg PO HS 05/29/17 [History] Apixaban [Eliquis 2.5 mg Tablet] 2.5 mg PO BID 05/20/19 [History] Denosumab 60 mg [Prolia 60 mg Injection] 60 mg IM CLARIFY 05/20/19 [ History] Amiodarone HCl 200 mg [Cordarone 200 MG] 200 mg PO DAILY 07/17/19 [History ] Furosemide 20 mg [Lasix 20 mg] 20 mg PO DAILY 07/17/19 [History] Atorvastatin Calcium 10 mg PO DAILY 07/18/19 [History] Meclizine HCl 25 mg [Antivert 25 mg] 25 mg PO TID PRN PRN 07/18/19 [ History] Spironolactone 25 mg [Aldactone 25 MG] 25 mg PO DAILY 07/18/19 [History] Duloxetine HCl 20 mg DAILY 07/22/19 [History] Melatonin 3 mg HS 07/22/19 [History] Vit D3/Folic Acid/B2/B6/B12 [Folgard Tablet] 1 ea DAILY 07/22/19 [History] Hx Tetanus, Diphtheria Vaccination/Date Given: No Hx Influenza Vaccination/Date Given: Yes Hx Pneumococcal Vaccination/Date Given: Yes Immunizations Up to Date: Yes - Review of Systems Constitutional: Weakness, No Fever, No Chills Eyes: No Symptoms Ears, Nose, & Throat: No Symptoms Respiratory: No Cough, No Dyspnea Cardiac: No Chest Pain, No Edema, No Syncope Abdominal/Gastrointestinal: No Abdominal Pain, No Nausea, No Vomiting, No Diarrhea Genitourinary Symptoms: No Dysuria Musculoskeletal: No Back Pain, No Neck Pain Skin: No Rash Neurological: No Dizziness, No Focal Weakness, No Sensory Changes Psychological: No Symptoms Endocrine: No Symptoms All Other Systems: Reviewed and Negative - Past Medical History Pertinent Past Medical History: Yes Neurological History: No Pertinent History ENT History: Cataracts Cardiac History: Arrhythmia, Hypertension Respiratory History: No Pertinent History Endocrine Medical History: Hypothyroidism Musculoskeletal History: Fibromyalgia, Rheumatoid Arthritis GI Medical History: Diverticulosis, GERD, Other History: No Pertinent History Psycho-Social History: Anxiety Female Reproductive Disorders: No Pertinent History Other Medical History: UTI, A FIB, hiatal hernia, - Past Surgical History Past Surgical History: Yes Neuro Surgical History: No Pertinent History Cardiac: Pacemaker Respiratory: No Pertinent History Gastrointestinal: No Pertinent History Genitourinary: No Pertinent History Musculoskeletal: Other Female Surgical History: Tubal Ligation Other Surgical History: KNEE REPLACEMENT X 2,. RIGHT HIP. Cataract surgery - Social History Smoking Status: Never smoker Exposure to second hand smoke: No Alcohol Use: None Drug Use: none Patient Lives Alone: Yes Significant Family History: hypertension - Female History Hx Now: No - Nursing Vital Signs Nursing Vital Signs: Initial Vital Signs Temperature 97.9 F 10/22/19 16:26 Pulse Rate 66 10/22/19 16:26 Respiratory Rate 18 10/22/19 16:26 Blood Pressure 109/53 10/22/19 16:26 O2 Sat by Pulse Oximetry 99 10/22/19 16:26 Pain Scale Pain Intensity 0 - Physical Exam General Appearance: no apparent distress, alert Eye Exam: PERRL/EOMI, eyes nml inspection Ears, Nose, Throat Exam: normal ENT inspection, TMs normal, pharynx normal, moist mucous membranes Neck Exam: normal inspection, non-tender, supple, full range of motion Respiratory Exam: normal breath sounds, lungs clear, No respiratory distress Cardiovascular Exam: regular rate/rhythm, normal heart sounds, normal peripheral pulses Gastrointestinal/Abdomen Exam: soft, normal bowel sounds, No tenderness, No mass Back Exam: normal inspection, normal range of motion, No CVA tenderness, No vertebral tenderness Extremity Exam: normal inspection, normal range of motion, pelvis stable Neurologic Exam: alert, oriented x 3, cooperative, normal mood/affect, nml cerebellar function, nml station & gait, sensation nml, No motor deficits Skin Exam: normal color, warm, dry, No rash Lymphatic Exam: No adenopathy SpO2: 96 Comments: 10/22/19 18:22 No trismus, able to fully extend neck, normal range of motion of neck without pain. Uvula is midline, no swelling of the mouth, noraml oropharynx. No exudate, no signs of meningitis, no floor of mouth swelling, no hot potato voice on exam. No buccal swelling, no gum bleeding, no signs of tooth abscess/infection. No obvious deformity, sensation intact, 2+ capillary refill, 2 point tactile discrimination intact. 5 out of 5 strength. Full range of motion without pain. Compartments are soft, nontender. Overlying skin shows no tenting, bruising, ecchymosis. Ordered Tests: Active Orders 24 hr Category Date Time Status Leather Scrubber STAT Care 10/22/19 16:36 Active EKG-ER Only STAT Care 10/22/19 16:35 Active IV Insertion STAT Care 10/22/19 16:35 Active cath [Cath for Specimen-Straight] STAT Care 10/22/19 16:38 Active CHEST 2 VIEWS (PA AND LAT) Stat Exams 10/22/19 16:36 Taken HEAD WITHOUT CONTRAST [CT] Stat Exams 10/22/19 16:37 Taken CBC W DIFF Stat Lab 10/22/19 18:30 Completed CMP Stat Lab 10/22/19 18:30 Completed LIPASE Stat Lab 10/22/19 18:30 Completed Lactic Acid Stat Lab 10/22/19 18:45 Completed NT PRO BNP Stat Lab 10/22/19 18:30 Completed PROTIME WITH INR Stat Lab 10/22/19 18:30 Completed TROPONIN Q3H Lab 10/22/19 18:30 Completed TROPONIN Q3H Lab 10/22/19 19:45 Ordered TROPONIN Q3H Lab 10/22/19 22:45 Ordered TROPONIN Q3H Lab 10/23/19 01:45 Ordered TROPONIN Q3H Lab 10/23/19 04:45 Ordered UA W/RFX UR CULTURE Stat Lab 10/22/19 19:08 Completed Transfer Order Routine Transfer 10/22/19 Ordered Medication Summary Discontinued Medications Generic Name Dose Route Start Last Admin Trade Name Franco PRN Reason Stop Dose Admin Diphenhydramine HCl 25 mg 10/22/19 16:36 10/22/19 18:02 Benadryl 50 Mg/Ml IV 10/22/19 16:37 25 mg STAT ONE Administration Diphenhydramine HCl Confirm 10/22/19 17:56 Benadryl 50 Mg/Ml Administered 10/22/19 17:57 Dose 50 mg .ROUTE .STK-MED ONE Sodium Chloride 1,000 mls @ 999 mls/hr 10/22/19 16:35 10/22/19 18:02 Sodium Chloride 0.9% 1000 Ml IV 10/22/19 17:35 999 mls/hr .Q1H1M STA Administration Sodium Chloride Confirm 10/22/19 17:57 Sodium Chloride 0.9% 1000 Ml Administered 10/22/19 17:58 Dose 1,000 mls @ ud .ROUTE .STK-MED ONE Metoclopramide HCl 10 mg 10/22/19 16:37 10/22/19 18:01 Reglan 10 Mg/2 Ml IV 10/22/19 16:38 10 mg STAT ONE Administration Metoclopramide HCl Confirm 10/22/19 17:57 Reglan 10 Mg/2 Ml Administered 10/22/19 17:58 Dose 10 mg .ROUTE .STK-MED ONE Lab/Rad Data: Laboratory Result Diagrams 10/22/19 18:30 10/22/19 18:30 Laboratory Results 10/22/19 10/22/19 10/22/19 Range/Units 19:08 18:45 18:30 WBC (4.0-10.5) K/mm3 RBC (4.1-5.4) M/mm3 Hgb (12.0-16.0) gm/dl Hct (35-47) % MCV (78-100) fl MCH (26-32) pg MCHC (32-36) g/dl RDW (11.5-14.0) % Plt Count (150-450) K/mm3 MPV (7.5-11.0) fl Gran % (36.0-66.0) % Eos # (Auto) (0-0.5) Absolute Lymphs (auto) (1.0-4.6) Absolute Monos (auto) (0.0-1.3) Lymphocytes % (24.0-44.0) % Monocytes % (0.0-12.0) % Eosinophils % (0.00-5.0) % Basophils % (0.0-0.4) % Absolute Granulocytes (1.4-6.9) Basophils # (0-0.4) PT (9.95-12.35) SECONDS INR (0.8-3.0) Sodium (137-145) mmol/L Potassium (3.5-5.1) mmol/L Chloride (98-107) mmol/L Carbon Dioxide (22-30) mmol/L Anion Gap (5-15) MEQ/L BUN (7-17) mg/dL Creatinine (0.52-1.04) mg/dL Estimated GFR ML/MIN Glucose (74-106) mg/dL Lactic Acid 0.7 (0.4-2.0) Calcium (8.4-10.2) mg/dL Total Bilirubin (0.2-1.3) mg/dL AST (14-36) U/L ALT (0-35) U/L Alkaline Phosphatase (38-126) U/L Troponin I < 0.012 (0.000-0.034) ng/mL NT-Pro-B Natriuret Pep (0-1800) pg/mL Serum Total Protein (6.3-8.2) g/dL Albumin (3.5-5.0) g/dL Lipase (23-300) U/L Urine Color YELLOW (YELLOW) Urine Appearance CLEAR (CLEAR) Urine pH 6.0 (5-6) Ur Specific [place] 1.011 (1.005-1.025) Urine Protein NEGATIVE (Negative) Urine Ketones NEGATIVE (NEGATIVE) Urine Blood NEGATIVE (0-5) Margarito/ul Urine Nitrite NEGATIVE (NEGATIVE) Urine Bilirubin NEGATIVE (NEGATIVE) Urine Urobilinogen NEGATIVE (0-1) mg/dL Ur Leukocyte Esterase NEGATIVE (NEGATIVE) Urine WBC (Auto) NONE (0-5) /HPF Urine RBC (Auto) NONE (0-2) /HPF U Hyaline Cast (Auto) 6-10 (0-2) /LPF U Epithel Cells (Auto) NONE (FEW) /HPF Urine Bacteria (Auto) NONE (NEGATIVE) /HPF Urine Culture Reflexed NO (NO) Urine Glucose NEGATIVE (NEGATIVE) mg/dL 10/22/19 10/22/19 10/22/19 Range/Units 18:30 18:30 18:30 WBC 8.2 (4.0-10.5) K/mm3 RBC 4.58 (4.1-5.4) M/mm3 Hgb 14.3 (12.0-16.0) gm/dl Hct 44.6 (35-47) % MCV 97.4 (78-100) fl MCH 31.2 (26-32) pg MCHC 32.1 (32-36) g/dl RDW 14.1 H (11.5-14.0) % Plt Count 172 (150-450) K/mm3 MPV 9.7 (7.5-11.0) fl Gran % 62.3 (36.0-66.0) % Eos # (Auto) 0.12 (0-0.5) Absolute Lymphs (auto) 2.39 (1.0-4.6) Absolute Monos (auto) 0.55 (0.0-1.3) Lymphocytes % 29.0 (24.0-44.0) % Monocytes % 6.7 (0.0-12.0) % Eosinophils % 1.5 (0.00-5.0) % Basophils % 0.5 (0.0-0.4) % Absolute Granulocytes 5.14 (1.4-6.9) Basophils # 0.04 (0-0.4) PT 15.9 H (9.95-12.35) SECONDS INR 1.40 (0.8-3.0) Sodium 136 L (137-145) mmol/L Potassium 5.2 H (3.5-5.1) mmol/L Chloride 96 L (98-107) mmol/L Carbon Dioxide 31 H (22-30) mmol/L Anion Gap 14.1 (5-15) MEQ/L BUN 45 H (7-17) mg/dL Creatinine 1.77 H (0.52-1.04) mg/dL Estimated GFR 29.5 ML/MIN Glucose 89 (74-106) mg/dL Lactic Acid (0.4-2.0) Calcium 9.4 (8.4-10.2) mg/dL Total Bilirubin 1.00 (0.2-1.3) mg/dL AST 40 H (14-36) U/L ALT 29 (0-35) U/L Alkaline Phosphatase 96 (38-126) U/L Troponin I (0.000-0.034) ng/mL NT-Pro-B Natriuret Pep 1680 (0-1800) pg/mL Serum Total Protein 8.1 (6.3-8.2) g/dL Albumin 4.1 (3.5-5.0) g/dL Lipase 28 (23-300) U/L Urine Color (YELLOW) Urine Appearance (CLEAR) Urine pH (5-6) Ur Specific [place] (1.005-1.025) Urine Protein (Negative) Urine Ketones (NEGATIVE) Urine Blood (0-5) Margarito/ul Urine Nitrite (NEGATIVE) Urine Bilirubin (NEGATIVE) Urine Urobilinogen (0-1) mg/dL Ur Leukocyte Esterase (NEGATIVE) Urine WBC (Auto) (0-5) /HPF Urine RBC (Auto) (0-2) /HPF U Hyaline Cast (Auto) (0-2) /LPF U Epithel Cells (Auto) (FEW) /HPF Urine Bacteria (Auto) (NEGATIVE) /HPF Urine Culture Reflexed (NO) Urine Glucose (NEGATIVE) mg/dL - Progress Progress: improved Progress Note: 10/22/19 18:22 - We'll obtain basic labs, fluids, EKG, troponin, chest x-ray - - EKG shows no ST changes - my read. See full read below. - O2 saturations consistently greater than 95%. - CXR shows no pneumonia, pneumothorax - my read 10/22/19 19:42 Patient has ELIZABETH, K of 5.2. Most likely dehydration and HTN medications causing orthostatic issues. I discussed with Dr. Thibodeaux over the phone. He will admit the patient to his service. Patient currently stable, no EKG changes. Discussed with : Apoorva Will see patient in: hospital (observation) Counseled pt/family regarding: lab results, diagnosis, need for follow-up - Departure Departure Disposition: Observation Clinical Impression: ELIZABETH (acute kidney injury), Weakness Condition: Stable Critical Care Time: No Referrals: KURTIS THIBODEAUX MD [Primary Care Provider] -
[2019-10-22 18:39] LABS: Absolute Neutrophil Ct (ANC) 5.14 (1.4-6.9); BASOPHIL % 0.5 % (0.0-0.4); Basophil (Absolute #) 0.04 (0-0.4); Eosinophil % 1.5 % (0.00-5.0); Eosinophil (Absolute #) 0.12 (0-0.5); Hematocrit 44.6 % (35-47); Hemoglobin 14.3 gm/dl (12.0-16.0); Lymphocyte (Absolute #) 2.39 (1.0-4.6); Mean Cell Volume 97.4 fl (78-100); Mean Corpuscular Hemoglobin 31.2 pg (26-32); Mean Corpuscular Hgb Concent. 32.1 g/dl (32-36); Mean Platelet Volume 9.7 fl (7.5-11.0); Monocyte (Absolute #) 0.55 (0.0-1.3); Monocytes % 6.7 % (0.0-12.0); Neutrophil % 62.3 % (36.0-66.0); Platelet Count 172 K/mm3 (150-450); Red Blood Count 4.58 M/mm3 (4.1-5.4); Red Cell Distribution Width 14.1 % (11.5-14.0); White Blood Count 8.2 K/mm3 (4.0-10.5)
[2019-10-22 18:46] LABS: INR 1.4 (0.8-3.0); PROTIME 15.9 SECONDS (9.95-12.35)
[2019-10-22 18:59] LABS: ALBUMIN 4.1 g/dL (3.5-5.0); ANION GAP 14.1 MEQ/L (5-15); Calcium 9.4 mg/dL (8.4-10.2); Creatinine 1 1.77 mg/dL (0.52-1.04); Potassium 5.2 mmol/L (3.5-5.1); Total Protein 8.1 g/dL (6.3-8.2)
[2019-10-22 19:12] LABS: Appearance CLEAR (CLEAR); Bilirubin NEGATIVE (NEGATIVE); Blood NEGATIVE Ery/ul (0-5); Glucose NEGATIVE (NEGATIVE); Ketones NEGATIVE (NEGATIVE); Leukocyte Esterase NEGATIVE (NEGATIVE); Nitrite NEGATIVE (NEGATIVE); Protein,Urine Dip NEGATIVE (Negative); Specific Gravity 1.011 (1.005-1.025); Urobilinogen NEGATIVE mg/dL (0-1)
[2019-10-22 19:45] LABS: INFLUENZA A NEGATIVE (NEGATIVE); INFLUENZA B NEGATIVE (NEGATIVE); RESPIRATORY SYNCTIAL VIRUS NEGATIVE (Negative)
[2019-10-22] MEDS ORDERED: MORPHINE SULFATE 2 MG INJ IV PRN (20:56)
[2019-10-22] MEDS: Neurontin 100 MG PO SCH (22:42)
[2019-10-22] MEDS: COREG 12.5 MG PO SCH (22:42)
[2019-10-22] MEDS: ELIQUIS 2.5 MG TABLET PO SCH (22:42)
[2019-10-23 04:41] LABS: Absolute Neutrophil Ct (ANC) 4.19 (1.4-6.9); BASOPHIL % 0.4 % (0.0-0.4); Basophil (Absolute #) 0.03 (0-0.4); Eosinophil % 1.5 % (0.00-5.0); Eosinophil (Absolute #) 0.11 (0-0.5); Hematocrit 40.7 % (35-47); Hemoglobin 12.9 gm/dl (12.0-16.0); Lymphocyte (Absolute #) 2.22 (1.0-4.6); Lymphocytes % 31.2 % (24.0-44.0); Mean Cell Volume 98.8 fl (78-100); Mean Corpuscular Hemoglobin 31.3 pg (26-32); Mean Corpuscular Hgb Concent. 31.7 g/dl (32-36); Mean Platelet Volume 9.4 fl (7.5-11.0); Monocyte (Absolute #) 0.56 (0.0-1.3); Monocytes % 7.9 % (0.0-12.0); Platelet Count 163 K/mm3 (150-450); Red Blood Count 4.12 M/mm3 (4.1-5.4); White Blood Count 7.1 K/mm3 (4.0-10.5)
[2019-10-23 04:49] LABS: ALBUMIN 3.5 g/dL (3.5-5.0); ANION GAP 11.7 MEQ/L (5-15); BILIRUBIN,TOTAL 0.9 mg/dL (0.2-1.3); Calcium 8.6 mg/dL (8.4-10.2); Creatinine 1 1.45 mg/dL (0.52-1.04); Total Protein 6.8 g/dL (6.3-8.2)
[2019-10-23] MEDS: Sodium Chloride 0.9% 1000 ML 1,000 ML IV SCH ×2 (07:43→18:20)
--- NOTE | 2019-10-23 08:41 | XRAY ---
Indication: Weakness. Multiple contiguous axial images obtained through the head without contrast. Comparison: July 22, 2019. Stable age-appropriate global atrophy and minimal periventricular degenerative micro-ischemia bilaterally. No acute intracranial hemorrhage, abnormal extra-axial fluid collection, or mass effect. Fourth ventricle is midline without hydrocephalus. Bony calvarium intact. Visualized paranasal sinuses and mastoid air cells are clear. Impression: Stable nonacute senile brain.
--- NOTE | 2019-10-23 08:51 | PCM.HP ---
History of Present Illness - Chief Complaint Chief Complaint: ELIZABETH History of Present Illness: is a 79 year old female who came to the ER with complaints of weakness and feeling faint, she felt like her legs were rubber. she had a fall with similar symptoms 3 months ago, found to be hypotensive and meds were adjusted, she has not followed with Dr Manpreet Swift her sports medicine specialist, she had an appointment but cancelled due to weather. She denies chest pain, no recent vomiting or diarrhea. Patient did have a significant weight loss over a long period of time. - Review of Systems Constitutional: Weakness, No Fever, No Chills Respiratory: No Cough, No Short Of Breath Cardiac: No Chest Pain, No Syncope Abdominal/Gastrointestinal: No Abdominal Pain, No Nausea, No Vomiting, No Diarrhea Skin: No Rash Neurological: No Dizziness, No Focal Weakness, No Sensory Changes All Other Systems: Reviewed and Negative Medications & Allergies Home Medications: Home Medication List Dicyclomine HCl [Bentyl] 10 mg PO BID 01/26/13 [History Confirmed 10/22/19] Gabapentin [Neurontin] 200 mg PO BID 05/06/16 [History Confirmed 10/22/19] Levothyroxine Sodium [Synthroid] 100 mcg PO DAILY 05/06/16 [History Confirmed ] Apixaban [Eliquis 2.5 mg Tablet] 2.5 mg PO BID 05/20/19 [History Confirmed ] Amiodarone HCl 200 mg [Cordarone 200 MG] 200 mg PO DAILY 07/17/19 [ History Confirmed 10/22/19] Furosemide 20 mg [Lasix 20 mg] 20 mg PO DAILY 07/17/19 [History Confirmed 10/22/19] Atorvastatin Calcium 10 mg PO DAILY 07/18/19 [History Confirmed 10/22/19] Meclizine HCl 25 mg [Antivert 25 mg] 25 mg PO TID PRN PRN 07/18/19 [ History Confirmed 10/22/19] Spironolactone 25 mg [Aldactone 25 MG] 25 mg PO DAILY 07/18/19 [History Confirmed 10/22/19] Carvedilol 12.5 mg [Coreg 12.5 mg] 12.5 mg PO BID #60 tablet 07/20/19 [Rx Confirmed 10/22/19] Irbesartan 150 mg [Avapro 150 MG] 150 mg PO DAILY #30 tablet 07/20/19 [Rx Confirmed 10/22/19] Duloxetine HCl 20 mg DAILY 07/22/19 [History Confirmed 10/22/19] Melatonin 3 mg HS 07/22/19 [History Confirmed 10/22/19] Vit D3/Folic Acid/B2/B6/B12 [Folgard Tablet] 1 ea DAILY 07/22/19 [History Confirmed 10/22/19] Abatacept/Maltose [Orencia 250 mg Vial] 0 INTRAVENTR CLARIFY 10/22/19 [History] Allergies/Adverse Reactions: Allergies Allergy/AdvReac Type Severity Reaction Status Date / Time No Known Drug Allergies Allergy Verified 07/22/19 12:58 - Past Medical History Past Medical History: Yes Neurological History: No Pertinent History ENT History: Cataracts Cardiac History: Arrhythmia, Hypertension Respiratory History: No Pertinent History Endocrine Medical History: Hypothyroidism Musculoskelatal History: Fibromyalgia, Rheumatoid Arthritis GI Medical History: Diverticulosis, GERD, Other History: No Pertinent History Pyscho-Social History: Anxiety Reproductive Disorders: No Pertinent History Comment: UTI, A FIB, hiatal hernia, - Female History Are you now?: No - Past Surgical History Past Surgical History: Yes Neuro Surgical History: No Pertinent History Cardiac History: Pacemaker Respiratory Surgery: No Pertinent History GI Surgical History: No Pertinent History Genitourinary Surgical Hx: No Pertinent History Musculskeletal Surgical Hx: Other Female Surgical History: Tubal Ligation Other Surgical History: KNEE REPLACEMENT X 2,. RIGHT HIP. Cataract surgery - Social History Smoking Status: Never smoker Exposure to second hand smoke: No Alcohol: None Drug Use: none Significant Family History: hypertension - Physical Exam Vital Signs: Vital Signs - 24 hr Temp Pulse Resp BP Pulse Ox 10/23/19 07:34 97.6 F 60 20 98/52 97 10/23/19 06:47 92 L 10/23/19 04:00 97.6 F 74 16 98/56 97 10/23/19 00:07 97.4 F 60 21 97/52 97 10/23/19 00:00 20 10/22/19 23:45 95 10/22/19 21:31 97.5 F 73 20 139/65 95 10/22/19 20:56 95 10/22/19 19:44 96 10/22/19 18:15 63 18 136/71 96 10/22/19 16:26 97.9 F 66 18 109/53 99 General Appearance: no apparent distress Neurologic Exam: alert, oriented x 3, cooperative Respiratory Exam: normal breath sounds, lungs clear, No respiratory distress Cardiovascular Exam: regular rate/rhythm, normal heart sounds, normal peripheral pulses Gastrointestinal/Abdomen Exam: soft, normal bowel sounds, No tenderness, No mass Extremity Exam: normal inspection, normal range of motion, pelvis stable Skin Exam: normal color, warm, dry, No rash Results - Labs Lab/Micro Results: Lab Results-Last 24 Hours 10/22/19 10/22/19 10/22/19 Range/Units 18:30 18:30 18:30 WBC 8.2 (4.0-10.5) K/mm3 RBC 4.58 (4.1-5.4) M/mm3 Hgb 14.3 (12.0-16.0) gm/dl Hct 44.6 (35-47) % MCV 97.4 (78-100) fl MCH 31.2 (26-32) pg MCHC 32.1 (32-36) g/dl RDW 14.1 H (11.5-14.0) % Plt Count 172 (150-450) K/mm3 MPV 9.7 (7.5-11.0) fl Gran % 62.3 (36.0-66.0) % Eos # (Auto) 0.12 (0-0.5) Absolute Lymphs (auto) 2.39 (1.0-4.6) Absolute Monos (auto) 0.55 (0.0-1.3) Lymphocytes % 29.0 (24.0-44.0) % Monocytes % 6.7 (0.0-12.0) % Eosinophils % 1.5 (0.00-5.0) % Basophils % 0.5 (0.0-0.4) % Absolute Granulocytes 5.14 (1.4-6.9) Basophils # 0.04 (0-0.4) PT 15.9 H (9.95-12.35) SECONDS INR 1.40 (0.8-3.0) Sodium 136 L (137-145) mmol/L Potassium 5.2 H (3.5-5.1) mmol/L Chloride 96 L (98-107) mmol/L Carbon Dioxide 31 H (22-30) mmol/L Anion Gap 14.1 (5-15) MEQ/L BUN 45 H (7-17) mg/dL Creatinine 1.77 H (0.52-1.04) mg/dL Estimated GFR 29.5 ML/MIN Glucose 89 (74-106) mg/dL Lactic Acid (0.4-2.0) Calcium 9.4 (8.4-10.2) mg/dL Total Bilirubin 1.00 (0.2-1.3) mg/dL AST 40 H (14-36) U/L ALT 29 (0-35) U/L Alkaline Phosphatase 96 (38-126) U/L Troponin I (0.000-0.034) ng/mL NT-Pro-B Natriuret Pep 1680 (0-1800) pg/mL Serum Total Protein 8.1 (6.3-8.2) g/dL Albumin 4.1 (3.5-5.0) g/dL Lipase 28 (23-300) U/L Urine Color (YELLOW) Urine Appearance (CLEAR) Urine pH (5-6) Ur Specific [employer] (1.005-1.025) Urine Protein (Negative) Urine Ketones (NEGATIVE) Urine Blood (0-5) Margarito/ul Urine Nitrite (NEGATIVE) Urine Bilirubin (NEGATIVE) Urine Urobilinogen (0-1) mg/dL Ur Leukocyte Esterase (NEGATIVE) Urine WBC (Auto) (0-5) /HPF Urine RBC (Auto) (0-2) /HPF U Hyaline Cast (Auto) (0-2) /LPF U Epithel Cells (Auto) (FEW) /HPF Urine Bacteria (Auto) (NEGATIVE) /HPF Urine Culture Reflexed (NO) Urine Glucose (NEGATIVE) mg/dL Influenza Type A Ag (NEGATIVE) Influenza Type B Ag (NEGATIVE) RSV (PCR) (Negative) 10/22/19 10/22/19 10/22/19 Range/Units 18:30 18:45 19:08 WBC (4.0-10.5) K/mm3 RBC (4.1-5.4) M/mm3 Hgb (12.0-16.0) gm/dl Hct (35-47) % MCV (78-100) fl MCH (26-32) pg MCHC (32-36) g/dl RDW (11.5-14.0) % Plt Count (150-450) K/mm3 MPV (7.5-11.0) fl Gran % (36.0-66.0) % Eos # (Auto) (0-0.5) Absolute Lymphs (auto) (1.0-4.6) Absolute Monos (auto) (0.0-1.3) Lymphocytes % (24.0-44.0) % Monocytes % (0.0-12.0) % Eosinophils % (0.00-5.0) % Basophils % (0.0-0.4) % Absolute Granulocytes (1.4-6.9) Basophils # (0-0.4) PT (9.95-12.35) SECONDS INR (0.8-3.0) Sodium (137-145) mmol/L Potassium (3.5-5.1) mmol/L Chloride (98-107) mmol/L Carbon Dioxide (22-30) mmol/L Anion Gap (5-15) MEQ/L BUN (7-17) mg/dL Creatinine (0.52-1.04) mg/dL Estimated GFR ML/MIN Glucose (74-106) mg/dL Lactic Acid 0.7 (0.4-2.0) Calcium (8.4-10.2) mg/dL Total Bilirubin (0.2-1.3) mg/dL AST (14-36) U/L ALT (0-35) U/L Alkaline Phosphatase (38-126) U/L Troponin I < 0.012 (0.000-0.034) ng/mL NT-Pro-B Natriuret Pep (0-1800) pg/mL Serum Total Protein (6.3-8.2) g/dL Albumin (3.5-5.0) g/dL Lipase (23-300) U/L Urine Color YELLOW (YELLOW) Urine Appearance CLEAR (CLEAR) Urine pH 6.0 (5-6) Ur Specific [employer] 1.011 (1.005-1.025) Urine Protein NEGATIVE (Negative) Urine Ketones NEGATIVE (NEGATIVE) Urine Blood NEGATIVE (0-5) Margarito/ul Urine Nitrite NEGATIVE (NEGATIVE) Urine Bilirubin NEGATIVE (NEGATIVE) Urine Urobilinogen NEGATIVE (0-1) mg/dL Ur Leukocyte Esterase NEGATIVE (NEGATIVE) Urine WBC (Auto) NONE (0-5) /HPF Urine RBC (Auto) NONE (0-2) /HPF U Hyaline Cast (Auto) 6-10 (0-2) /LPF U Epithel Cells (Auto) NONE (FEW) /HPF Urine Bacteria (Auto) NONE (NEGATIVE) /HPF Urine Culture Reflexed NO (NO) Urine Glucose NEGATIVE (NEGATIVE) mg/dL Influenza Type A Ag (NEGATIVE) Influenza Type B Ag (NEGATIVE) RSV (PCR) (Negative) 10/22/19 10/22/19 10/22/19 Range/Units 19:15 20:31 23:01 WBC (4.0-10.5) K/mm3 RBC (4.1-5.4) M/mm3 Hgb (12.0-16.0) gm/dl Hct (35-47) % MCV (78-100) fl MCH (26-32) pg MCHC (32-36) g/dl RDW (11.5-14.0) % Plt Count (150-450) K/mm3 MPV (7.5-11.0) fl Gran % (36.0-66.0) % Eos # (Auto) (0-0.5) Absolute Lymphs (auto) (1.0-4.6) Absolute Monos (auto) (0.0-1.3) Lymphocytes % (24.0-44.0) % Monocytes % (0.0-12.0) % Eosinophils % (0.00-5.0) % Basophils % (0.0-0.4) % Absolute Granulocytes (1.4-6.9) Basophils # (0-0.4) PT (9.95-12.35) SECONDS INR (0.8-3.0) Sodium (137-145) mmol/L Potassium (3.5-5.1) mmol/L Chloride (98-107) mmol/L Carbon Dioxide (22-30) mmol/L Anion Gap (5-15) MEQ/L BUN (7-17) mg/dL Creatinine (0.52-1.04) mg/dL Estimated GFR ML/MIN Glucose (74-106) mg/dL Lactic Acid (0.4-2.0) Calcium (8.4-10.2) mg/dL Total Bilirubin (0.2-1.3) mg/dL AST (14-36) U/L ALT (0-35) U/L Alkaline Phosphatase (38-126) U/L Troponin I < 0.012 < 0.012 (0.000-0.034) ng/mL NT-Pro-B Natriuret Pep (0-1800) pg/mL Serum Total Protein (6.3-8.2) g/dL Albumin (3.5-5.0) g/dL Lipase (23-300) U/L Urine Color (YELLOW) Urine Appearance (CLEAR) Urine pH (5-6) Ur Specific [employer] (1.005-1.025) Urine Protein (Negative) Urine Ketones (NEGATIVE) Urine Blood (0-5) Margarito/ul Urine Nitrite (NEGATIVE) Urine Bilirubin (NEGATIVE) Urine Urobilinogen (0-1) mg/dL Ur Leukocyte Esterase (NEGATIVE) Urine WBC (Auto) (0-5) /HPF Urine RBC (Auto) (0-2) /HPF U Hyaline Cast (Auto) (0-2) /LPF U Epithel Cells (Auto) (FEW) /HPF Urine Bacteria (Auto) (NEGATIVE) /HPF Urine Culture Reflexed (NO) Urine Glucose (NEGATIVE) mg/dL Influenza Type A Ag NEGATIVE (NEGATIVE) Influenza Type B Ag NEGATIVE (NEGATIVE) RSV (PCR) NEGATIVE (Negative) 10/23/19 10/23/19 10/23/19 Range/Units 04:25 04:25 04:25 WBC 7.1 (4.0-10.5) K/mm3 RBC 4.12 (4.1-5.4) M/mm3 Hgb 12.9 (12.0-16.0) gm/dl Hct 40.7 (35-47) % MCV 98.8 (78-100) fl MCH 31.3 (26-32) pg MCHC 31.7 L (32-36) g/dl RDW 14.0 (11.5-14.0) % Plt Count 163 (150-450) K/mm3 MPV 9.4 (7.5-11.0) fl Gran % 59.0 (36.0-66.0) % Eos # (Auto) 0.11 (0-0.5) Absolute Lymphs (auto) 2.22 (1.0-4.6) Absolute Monos (auto) 0.56 (0.0-1.3) Lymphocytes % 31.2 (24.0-44.0) % Monocytes % 7.9 (0.0-12.0) % Eosinophils % 1.5 (0.00-5.0) % Basophils % 0.4 (0.0-0.4) % Absolute Granulocytes 4.19 (1.4-6.9) Basophils # 0.03 (0-0.4) PT (9.95-12.35) SECONDS INR (0.8-3.0) Sodium 137 (137-145) mmol/L Potassium 5.0 (3.5-5.1) mmol/L Chloride 101 (98-107) mmol/L Carbon Dioxide 29 (22-30) mmol/L Anion Gap 11.7 (5-15) MEQ/L BUN 45 H (7-17) mg/dL Creatinine 1.45 H (0.52-1.04) mg/dL Estimated GFR 37.1 ML/MIN Glucose 86 (74-106) mg/dL Lactic Acid (0.4-2.0) Calcium 8.6 (8.4-10.2) mg/dL Total Bilirubin 0.90 (0.2-1.3) mg/dL AST 52 H (14-36) U/L ALT 34 (0-35) U/L Alkaline Phosphatase 74 (38-126) U/L Troponin I < 0.012 (0.000-0.034) ng/mL NT-Pro-B Natriuret Pep (0-1800) pg/mL Serum Total Protein 6.8 (6.3-8.2) g/dL Albumin 3.5 (3.5-5.0) g/dL Lipase (23-300) U/L Urine Color (YELLOW) Urine Appearance (CLEAR) Urine pH (5-6) Ur Specific [employer] (1.005-1.025) Urine Protein (Negative) Urine Ketones (NEGATIVE) Urine Blood (0-5) Margarito/ul Urine Nitrite (NEGATIVE) Urine Bilirubin (NEGATIVE) Urine Urobilinogen (0-1) mg/dL Ur Leukocyte Esterase (NEGATIVE) Urine WBC (Auto) (0-5) /HPF Urine RBC (Auto) (0-2) /HPF U Hyaline Cast (Auto) (0-2) /LPF U Epithel Cells (Auto) (FEW) /HPF Urine Bacteria (Auto) (NEGATIVE) /HPF Urine Culture Reflexed (NO) Urine Glucose (NEGATIVE) mg/dL Influenza Type A Ag (NEGATIVE) Influenza Type B Ag (NEGATIVE) RSV (PCR) (Negative) - Radiology Impressions Radiology Exams & Impressions: Radiology Procedures Category Date Time Status CHEST 2 VIEWS (PA AND LAT) Stat Exams 10/22/19 16:36 Taken HEAD WITHOUT CONTRAST [CT] Stat Exams 10/22/19 16:37 Completed Assessment/Plan (1) ELIZABETH (acute kidney injury) Current Visit: Yes Status: Acute Assessment & Plan: replacing volume, hold lasix and aldactone at this time Code(s): N17.9 - ACUTE KIDNEY FAILURE, UNSPECIFIED (2) hypotension Current Visit: No Status: Acute Assessment & Plan: hold avapro, continue beta paul for rate control with afib (3) Atrial fibrillation Current Visit: Yes Status: Acute Assessment & Plan: on amiodarone, eliquis and coreg, stable Code(s): I48.91 - UNSPECIFIED ATRIAL FIBRILLATION (4) Weakness Current Visit: Yes Status: Acute Code(s): R53.1 - WEAKNESS
--- NOTE | 2019-10-23 09:15 | XRAY ---
Indication: Weakness. Pneumonia. Comparison: July 23, 2019. PA/lateral chest remains clear again with focal eventration of the right hemidiaphragm. Heart is not enlarged with stable aortic calcifications, left pacemaker, and hiatal hernia. Bony thorax intact again with osteopenia, degenerative changes, and old right humeral head fracture. Incidental ultrasound proven 2.4 cm gallstone. Impression: Stable nonacute chest with chronic features.
[2019-10-23] MEDS ORDERED: DICYCLOMINE HCL 10 MG PO SCH (10:00)
[2019-10-23] MEDS ORDERED: NON-FORMULARY ITEM (Atorvastatin Calcium [Atorvastatin Calcium] 10 MG) PO SCH (10:00)
[2019-10-23] MEDS ORDERED: LEVOTHYROXINE SODIUM 100 MCG PO SCH (10:00)
[2019-10-23] MEDS ORDERED: MEDICATION INTERVENTION PO SCH ×2 (10:15)
[2019-10-23] MEDS: SYNTHROID 100 MCG PO SCH (10:25)
[2019-10-23] MEDS: Neurontin 100 MG PO SCH ×2 (10:25→20:50)
[2019-10-23] MEDS: Cordarone 200 MG PO SCH (10:25)
[2019-10-23] MEDS: COREG 12.5 MG PO SCH ×2 (10:25→20:50)
[2019-10-23] MEDS: Zocor 10MG PO SCH (10:26)
[2019-10-23] MEDS: ELIQUIS 2.5 MG TABLET PO SCH ×2 (10:26→20:49)
[2019-10-23] MEDS: BENTYL 20 MG PO SCH ×2 (10:26→20:49)
[2019-10-24] MEDS: Sodium Chloride 0.9% 1000 ML 1,000 ML IV SCH (04:54)
[2019-10-24 06:58] VITALS: BP 170/68; PULSE 62
[2019-10-24 07:03] VITALS: O2SAT 93
[2019-10-24] MEDS: Cordarone 200 MG PO SCH (09:01)
[2019-10-24] MEDS: Neurontin 100 MG PO SCH (09:01)
[2019-10-24] MEDS: SYNTHROID 100 MCG PO SCH (09:02)
[2019-10-24] MEDS: ELIQUIS 2.5 MG TABLET PO SCH (09:02)
[2019-10-24] MEDS: BENTYL 20 MG PO SCH (09:02)
[2019-10-24] MEDS: Zocor 10MG PO SCH (09:02)
[2019-10-24] MEDS: COREG 12.5 MG PO SCH (09:02)
--- NOTE | 2019-10-27 09:32 | SSS ---
DISCHARGE DIAGNOSES: 1) ACUTE KIDNEY INJURY. 2) HYPOTENSION. 3) DEHYDRATION. HISTORY: The patient is a 79 year-old white female presenting to the emergency room with complaints of weakness and feeling faint. She reports her legs were like rubber. The patient has had similar episodes with a fall three months ago. At that time she was hypotensive and she failed to follow up with her ad compositor due to weather concerns. HOSPITAL COURSE: The patient was admitted to the [facility] and given IV fluids. She was held on her diuretic medications. Her creatinine improved from 1.7 to 1.45 and she was feeling much better and anxious to be discharged home by the morning of 10/24/2019. The patient will be discharged home now on her amiodarone at 200 mg daily, Eliquis 2.5 mg b.i.d. and carvedilol 12.5 mg b.i.d., Bentyl 10 mg four times a day PRN, gabapentin 100 mg at night, Simvastatin 10 mg daily. She will have follow up with her primary care physician within the next week. If she has further problems in the interim she was encouraged to call or come back to the hospital if she had further episodes of weakness or feeling faint.
== END 2019-10-24 11:50 | disposition home or self-care (01) ==
LOC: ED 16:04 → MED SURG 20:52
PROVIDERS: ADMIT Family Medicine; ATTEND Family Medicine
DX: N17.9 Acute kidney failure, unspecified (principal); R53.1 Weakness; E86.0 Dehydration; I10 Essential (primary) hypertension; E03.9 Hypothyroidism, unspecified; I95.9 Hypotension, unspecified; I48.91 Unspecified atrial fibrillation; Z79.01 Long term (current) use of anticoagulants; Z79.899 Other long term (current) drug therapy
CPT/HCPCS: 36000; 36415; 70450; 71046; 80053; 81001; 83605; 83690; 83880; 84484; 85025; 85610; 87631; 93005; 93041; 94762; 96374; 97161; 97530; 99285; P9612; 93268; J1200; A9270-GY; G0378